=== PATIENT | male | born 1975 | race Hispanic/Latino ===

== ENCOUNTER 2020-02-16 15:16 | Inpatient (IN) | payer SELFPAY ==
--- NOTE | 2020-02-16 15:59 | RAD ---
EXAM: Single view of the chest HISTORY: Right leg swelling. Noncompliant with congestive heart failure medication COMPARISON: 11/12/2019 FINDINGS: Single view of the chest shows an enlarged cardiomediastinal silhouette. Bilateral pulmona ry vascular enlargement is seen. There is no evidence of consolidation, mass, or pleural effusion. No acute osseous abnormality. IMPRESSION: Cardiomegaly
[2020-02-16] MEDS ORDERED: Morphine 4 MG/ML VIAL ONE (16:20)
[2020-02-16] MEDS ORDERED: Vancomycin 1 GM/200 ML BAG ONE (16:21)
--- NOTE | 2020-02-16 16:39 | ULT ---
EXAM: Left lower extremity venous ultrasound HISTORY: Left lower extremity redness and edema for 3 days COMPARISON: 09/25/2012 TECHNIQUE: Multiplanar grayscale and color Doppler images were obtained in a left lower extremity nara ous ultrasound. Spectral analysis of the Doppler waveforms were performed. FINDINGS: Evaluation is limited secondary to extreme obesity. The common femoral vein, profunda femor al vein, superficial femoral vein, and popliteal vein are normal in appearance without visible thrombus. These vessels demonstrate normal compression, flow, and augmentation. The posterior tibial vein and greater saphenous vein are patent without evidence of thrombus. IMPRESSION: No evidence of DVT.
[2020-02-16 17:18] LABS: CKMB 0.8 ng/mL (0-6.6)
[2020-02-16 17:33] LABS: Albumin 2.8 g/dL (3.5-5.0)
[2020-02-16 17:34] LABS: Chloride 98 mmol/L (98-107); Potassium 4.3 mmol/L (3.5-5.1); Sodium 135 mmol/L (136-145)
[2020-02-16 17:35] LABS: Calcium 7.8 mg/dL (7.8-10.44); Glucose 108 mg/dL (70-105)
[2020-02-16 17:36] LABS: Globulin 5.5 g/dL (2.4-3.5); Protein, Total 8.3 g/dL (6.0-8.3)
[2020-02-16 17:37] LABS: Anion Gap 11 mmol/L (10-20); Bilirubin, Total 2.5 mg/dL (0.2-1.2); Carbon Dioxide 30 mmol/L (22-29)
[2020-02-16 17:39] LABS: Alkaline Phosphatase 90 U/L (40-110); Calc. Creatinine Clearance 0 mL/min (70-130); Estimated GFR-MDRD 59
[2020-02-16 17:40] LABS: BUN (Urea Nitrogen) 17 mg/dL (8.9-20.6)
[2020-02-16 17:41] LABS: ALT (SGPT) 26 U/L (8-55); AST (SGOT) 58 U/L (5-34)
[2020-02-16] MEDS ORDERED: Cefepime 2 GM VIAL ONE (17:46)
[2020-02-16 18:04] LABS: Hemoglobin 13.6 g/dL (14.0-18.0); Mean Corpuscular HGB CONC 33.2 g/dL (32.0-36.0); Mean Corpuscular Hemoglobin 34.6 pg (27.0-31.0); RBC Distribution Width 12.2 % (11.5-14.5); Red Blood Cell (RBC) Count 3.93 mill/uL (4.70-6.10); White Blood Cell (WBC) Count 14.1 thou/uL (4.8-10.8)
[2020-02-16 18:06] LABS: Mean Platelet Volume 8.7 fL (7.4-10.4); Platelet Count 89 thou/uL (130-400)
--- NOTE | 2020-02-16 18:14 | PDOC.HHP ---
Hospitalist HPI - History of Present Illness LLE pain and swelling History of Present Illness: Mr. Abarca is a 44-year-old male with a past medical history of morbid obesity who has not seen a provider in decades who presents for left lower extremity redness pain and swelling. Patient reports that approximately 2 days prior to admission he noticed increased swelling to his left lower extremity which then progressed to redness and pain. Patient denies fever, night sweats, chills. He endorses chronic shortness of breath but no change from baseline. He denies chest pain, palpitations, abdominal pain. He denies numbness, weakness, paresthesias. In emergency room initial vital signs at 220/107, 89, 24, 98.7, 95% on room air. EKG with normal sinus rhythm no ischemic changes, initial troponin 0 0.058. Chest x-ray showed cardiomegaly but no acute process. WBC 14.1, H/H 13.6/40.9 BUN/CR 17/1.30, lactic acid 1.4. Ultrasound of lower extremities did not show any evidence of thrombosis. Patient received IV labetalol, vancomycin, cefepime and 1 L of normal saline. Patient managed hospital service for further evaluation and management. Hospitalist ROS - Review of Systems Constitutional: denies: fever, chills, sweats, weakness, malaise, other Eyes: denies: pain, vision change, conjunctivae inflammation, eyelid inflammation, redness, other ENT: denies: ear pain, ear discharge, nose pain, nose discharge, nose congestion, mouth pain, mouth swelling, throat pain, throat swelling, other Respiratory: reports: shortness of breath. denies: cough, dry, hemoptysis, SOB with excertion, pleuritic pain, sputum, wheezing, other Cardiovascular: denies: chest pain, palpitations, orthopnea, paroxysmal noc. dyspnea, edema, light headedness, other Gastrointestinal: denies: nausea, vomiting, abdominal pain, diarrhea, constipation, melena, hematochezia, other Genitourinary: denies: dysuria, frequency, incontinence, hematuria, retention, other Musculoskeletal: denies: neck pain, shoulder pain, arm pain, back pain, hand pain, leg pain, foot pain, other Skin: reports: rash Neurological: denies: weakness, numbness, incoordination, change in speech, confusion, seizures, other - Medication Medications: No home medications No known drug allergies Hospitalist History - Past Medical History Other Medical History: History of morbid obesity, weight of 223 kg. Patient reports that he has never been to a doctor. - Past Surgical History Other Surgical History: Past surgical history includes Left knee surgery as a child - Family History Other Family History: Patient reports family history of diabetes - Social History Smoking Status: Former smoker (Quit smoking 1 year ago) Tobacco Type: cigars Alcohol: reports: None Drugs: reports: marijuana Living Situation: With Family Activity level: independent ambulation - Exam General Appearance: NAD, awake alert Eye: PERRL, anicteric sclera ENT: normocephalic atraumatic, no oropharyngeal lesions, moist mucosa Neck: supple, symmetric, no JVD, no thyromegaly, no lymphadenopathy, no carotid bruit Heart: RRR, no murmur Heart - other findings: S3 gallop Respiratory: CTAB, no wheezes, no rales, no ronchi, normal percussion Gastrointestinal: soft, non-tender, non-distended, normal bowel sounds, no palpable masses, no hepatomegaly, no splenomegaly, no bruit Extremities: 2+ LE edema Extremities - other findings: Circumferential erythema to left lower extremity Skin: normal turgor Skin - other findings: Circumfrencial erythema to LLE extending from ankle to knee Neurological: cranial nerve grossly intact, normal sensation to touch, no weakness, no focal deficits, no new deficit Musculoskeletal: normal tone, normal strength, no muscle wasting Psychiatric: normal affect, normal behavior, A&O x 3 Hospitalist Results - Labs Result Diagrams: 02/16/20 17:40 02/16/20 16:56 Lab results: WBC 14.1 thou/uL (4.8-10.8) H 02/16/20 17:40 Hgb 13.6 g/dL (14.0-18.0) L 02/16/20 17:40 Hct 40.9 % (42.0-52.0) L 02/16/20 17:40 MCV 104.0 fL (78.0-98.0) H 02/16/20 17:40 Plt Count 89 thou/uL (130-400) L 02/16/20 17:40 Sodium 135 mmol/L (136-145) L 02/16/20 16:56 Potassium 4.3 mmol/L (3.5-5.1) 02/16/20 16:56 Chloride 98 mmol/L (98-107) 02/16/20 16:56 Carbon Dioxide 30 mmol/L (22-29) H 02/16/20 16:56 BUN 17 mg/dL (8.9-20.6) 02/16/20 16:56 Creatinine 1.30 mg/dL (0.7-1.3) 02/16/20 16:56 Glucose 108 mg/dL (70-105) H 02/16/20 16:56 Lactic Acid 1.4 mmol/L (0.5-2.2) 02/16/20 16:56 Calcium 7.8 mg/dL (7.8-10.44) 02/16/20 16:56 Total Bilirubin 2.5 mg/dL (0.2-1.2) H 02/16/20 16:56 AST 58 U/L (5-34) H 02/16/20 16:56 ALT 26 U/L (8-55) 02/16/20 16:56 Alkaline Phosphatase 90 U/L (40-110) 02/16/20 16:56 CK-MB (CK-2) 0.8 ng/mL (0-6.6) 02/16/20 16:18 Troponin I 0.058 ng/mL (< 0.028) H 02/16/20 16:18 Serum Total Protein 8.3 g/dL (6.0-8.3) 02/16/20 16:56 Albumin 2.8 g/dL (3.5-5.0) L 02/16/20 16:56 Hospitalist H&P A/P - Plan Plan: 44-year-old male past medical history of morbid obesity with not seen a physician in decades presents with left lower extremity cellulitis. Left lower extremity cellulitis 44-year-old male with left lower extremity circumferential cellulitis. Patient neurovascularly intact. WBC 14.1, lactic acid 1.4. Glucose 108. Ultrasound of lower extremity negative for DVT. Patient received vancomycin and cefepime in emergency room. Plan Elevate extremity Continue IV antibiotics We will check hemoglobin A1c Sepsis without septic shock Patient tachypneic to 24, elevated WBC to 14.1. Afebrile. Lactic acid 1.4. Meeting sepsis criteria due to left lower extremity cellulitis. Patient received vancomycin and cefepime in emergency room. Patient received 1 L of normal saline in emergency room. Patient hypertensives will hold fluids for now given suspected heart failure and cardiomegaly on x-ray. Plan Continue IV antibiotics Trend blood cultures Trend fever curve, WBC Hypertensive emergency Patient presented in hypertensive emergency with blood pressure of 220/107. Patient received 20 mg of labetalol in ER. Troponin elevated to 0.058. Patient denies chest pain, blurry vision, neck pain, headache. No papilledema on exam. Plan Continue labetalol as needed We will gradually adjust blood pressure Elevated troponin Troponin mildly elevated to 0.058. Patient denies chest pain. EKG with normal sinus rhythm no ischemic changes. Likely secondary to kidney function versus hypertensive emergency. Will trend troponin and continue to monitor. Plan Trend troponin Telemetry monitoring Acute kidney injury BUN/CR 19/04.30. Suspect IKE versus undiagnosed CKD. Patient received 1 L of normal saline in emergency room. Plan Trend kidney function Avoid nephrotoxic agents Renal dosing as appropriate Cardiomegaly Patient with cardiomegaly on chest x-ray. S3 gallop heard on exam. Patient likely has heart failure. Will obtain echocardiogram. Plan Echocardiogram Lipid panel Obesity hypoventilation syndrome Patient tachypneic to 24 on presentation. Maintaining O2 sat on room air. Patient reports chronic shortness of breath likely secondary to morbid obesity. Patient will likely need outpatient sleep study for suspected sleep apnea as well as PFTs. Plan -Supplemental O2 as needed -Outpatient follow up for ?PAIGE Morbid obesity Patient with morbid obesity weight of 220 kg. Patient does not have a primary care provider and has not seen a provider in decades. Suspect patient has multiple comorbidities and will need outpatient follow-up. I have recommended [facility] clinic to the patient as he has no insurance. Plan -Establish outpatient care with PCP DVT prophylaxisHeparin SQ Full code Case discussed with attending physician, Dr. Pride.
[2020-02-16 18:15] LABS: Band 10 % (5-11); Lymphocytes 30 % (21-51); MDiff Complete? YES; Macrocytosis SLIGHT = 6-15 cells (100X) (0-5/hpf); Monocytes 4 % (0-10); Neutrophil 55 % (42-75); Platelet Morphology Comment Appears Decreased; Reactive Lymphocytes 1 % (0-10)
[2020-02-16] MEDS ORDERED: Ondansetron ODT 4 MG TAB PO PRN (18:40)
[2020-02-16] MEDS ORDERED: Pharmacy to Dose VANCOMYCIN/RENALLY ADJ ANTIBIOTICS IVPB PRN (18:51)
[2020-02-16] MEDS ORDERED: Labetalol HCl 100 MG/20 ML VIAL SLOW IVP PRN (19:07)
[2020-02-16 20:18] LABS: Troponin I 0.046 ng/mL (< 0.028)
[2020-02-16] MEDS ORDERED: Ondansetron PF 4 MG/2 ML Vial IVP PRN (21:15)
[2020-02-16] MEDS ORDERED: Acetaminophen 325 MG TAB PO PRN (21:15)
[2020-02-16] MEDS ORDERED: HYDROcodone/Acetaminophen 5/325 mg Tablet PO PRN ×2 (21:15)
[2020-02-16] MEDS ORDERED: Ondansetron ODT 4 MG TAB SL PRN (21:15)
[2020-02-16] MEDS: Heparin 5,000 UNITS/ML VIAL SC SCH (21:48)
[2020-02-16 21:50] VITALS: BMI 69.5
[2020-02-16] MEDS ORDERED: Vancomycin 1.5 GRAM/300 ML BAG 1.5 GM in Premix Bag 1 BAG IVPB SCH (23:00)
[2020-02-16] MEDS: Sodium Chloride 0.9% 1,000 ML IV SCH (23:03)
[2020-02-16 23:36] LABS: Troponin I 0.029 ng/mL (< 0.028)
[2020-02-17] MEDS: Acetaminophen 325 MG TAB PO PRN ×2 (02:54→17:47)
[2020-02-17] MEDS: Sodium Chloride 0.9% 1,000 ML IV SCH (04:20)
[2020-02-17 05:33] LABS: SARS-CoV-2 MS2 Positive; SARS-CoV-2 N Gene Negative; SARS-CoV-2 S Gene Negative; SARS-CoV-2 by NAA Not Detected (NotDetected); SARS-CoV-2 orf1ab Negative
[2020-02-17] MEDS ORDERED: Cefepime 2 GM in Sodium Chloride 0.9% 100 ML IVPB SCH (06:00)
[2020-02-17 06:43] LABS: Hemoglobin 13.1 g/dL (14.0-18.0); Mean Corpuscular HGB CONC 32.9 g/dL (32.0-36.0); Mean Corpuscular Hemoglobin 35.1 pg (27.0-31.0); Mean Platelet Volume 7.7 fL (7.4-10.4); Platelet Count 93 thou/uL (130-400); RBC Distribution Width 12.1 % (11.5-14.5); Red Blood Cell (RBC) Count 3.73 mill/uL (4.70-6.10); White Blood Cell (WBC) Count 10.6 thou/uL (4.8-10.8)
[2020-02-17 06:44] LABS: Hemoglobin A1c 4.8 % (4.0-6.0)
[2020-02-17 07:05] LABS: Anion Gap 12 mmol/L (10-20); BUN (Urea Nitrogen) 17 mg/dL (8.9-20.6); Calc. Creatinine Clearance 245 mL/min (70-130); Calcium 7.7 mg/dL (7.8-10.44); Carbon Dioxide 25 mmol/L (22-29); Cardiac Risk 7.1 (Less than 4.5); Chloride 101 mmol/L (98-107); Cholesterol 92 mg/dl (< 200 Desired); Estimated GFR-MDRD 67; Glucose 110 mg/dL (70-105); HDL Cholesterol 13 mg/dL (>60 Neg Risk); LDL Cholesterol, Calculated 61 mg/dL; Potassium 3.9 mmol/L (3.5-5.1); Sodium 134 mmol/L (136-145); Triglycerides 88 mg/dL (Less than 150)
[2020-02-17] MEDS: Amlodipine 5 MG TAB PO SCH (07:59)
[2020-02-17] MEDS: Heparin 5,000 UNITS/ML VIAL SC SCH ×3 (08:04→21:42)
[2020-02-17 09:08] LABS: Band 13 % (5-11); Eosinophils 1 % (0-10); Lymphocytes 14 % (21-51); MDiff Complete? YES; Monocytes 12 % (0-10); Neutrophil 59 % (42-75); Platelet Morphology Comment Appears Decreased; Polychromasia SLIGHT = 2-3 cells (100X) (0-2/hpf); Reactive Lymphocytes 1 % (0-10)
[2020-02-17] MEDS ORDERED: cefTRIAXone\\ROCEPHIN 2 GM in Sodium Chloride 0.9% 100 ML IVPB SCH (10:00)
[2020-02-17] MEDS: CEFAZOLIN 2 GM in Premix Bag 1 BAG IVPB SCH ×2 (11:22→21:39)
[2020-02-17] MEDS ORDERED: FLU VACC QS2020-21(6MOS UP)/PF 60 MCG/0.5 ML SYRINGE IM ONE (21:00)
[2020-02-17 23:47] LABS: Vancomycin, Trough 26.4 ug/mL
[2020-02-18] MEDS: CEFAZOLIN 2 GM in Premix Bag 1 BAG IVPB SCH ×3 (06:12→22:57)
[2020-02-18 06:34] LABS: Anion Gap 11 mmol/L (10-20); BUN (Urea Nitrogen) 16 mg/dL (8.9-20.6); Calc. Creatinine Clearance 259 mL/min (70-130); Calcium 7.5 mg/dL (7.8-10.44); Carbon Dioxide 25 mmol/L (22-29); Chloride 102 mmol/L (98-107); Estimated GFR-MDRD 71; Glucose 105 mg/dL (70-105); Potassium 3.8 mmol/L (3.5-5.1); Sodium 134 mmol/L (136-145)
[2020-02-18 08:02] LABS: Band 4 % (5-11); Eosinophils 2 % (0-10); Hemoglobin 12.3 g/dL (14.0-18.0); Lymphocytes 11 % (21-51); MDiff Complete? YES; Macrocytosis SLIGHT = 6-15 cells (100X) (0-5/hpf); Mean Corpuscular Hemoglobin 32.8 pg (27.0-31.0); Monocytes 10 % (0-10); Neutrophil 70 % (42-75); Platelet Count 120 thou/uL (130-400); Platelet Morphology Comment Appears Decreased; Polychromasia SLIGHT = 2-3 cells (100X) (0-2/hpf); RBC Distribution Width 12.2 % (11.5-14.5); Reactive Lymphocytes 2 % (0-10); Red Blood Cell (RBC) Count 3.75 mill/uL (4.70-6.10); White Blood Cell (WBC) Count 13.6 thou/uL (4.8-10.8)
[2020-02-18] MEDS: Amlodipine 5 MG TAB PO SCH (10:19)
[2020-02-18] MEDS: Heparin 5,000 UNITS/ML VIAL SC SCH ×3 (10:20→20:11)
--- NOTE | 2020-02-18 13:27 | PDOC.HOSPP ---
- Subjective Encounter Date: 02/17/20 Encounter Time: 11:15 Subjective: pt up in bed complains of pain to his left leg - Objective Vital Signs & Weight: Vital Signs (12 hours) Temp Pulse Resp BP BP BP Pulse Ox 02/18/20 10:19 88 107/67 02/18/20 07:29 98.8 F 88 20 10767 92 L 02/18/20 03:42 114/69 Weight Weight 485 lb 0.271 oz I&O: 02/17/20 02/18/20 02/19/20 06:59 06:59 06:59 Intake Total 1700 1310 Balance 1700 1310 Result Diagrams: 02/18/20 05:40 02/18/20 05:40 Hospitalist ROS - Review of Systems Respiratory: denies: cough, dry, shortness of breath, hemoptysis, SOB with excertion, pleuritic pain, sputum, wheezing, other Cardiovascular: denies: chest pain, palpitations, orthopnea, paroxysmal noc. dyspnea, edema, light headedness, other Gastrointestinal: denies: nausea, vomiting, abdominal pain, diarrhea, constipation, melena, hematochezia, other Musculoskeletal: reports: leg pain, other (erythema) - Medication Medications: Active Medications Generic Name Dose Route Start Last Admin Trade Name Freq PRN Reason Stop Dose Admin Acetaminophen 650 mg 02/16/20 18:40 02/17/20 17:47 Acetaminophen 325 Mg Tab PO 650 mg Q4H PRN Administration Headache/Fever/Mild Pain (1-3) Amlodipine Besylate 2.5 mg 02/17/20 09:00 02/18/20 10:19 Amlodipine 5 Mg Tab PO 2.5 mg DAILY RAMY Administration Heparin Sodium (Porcine) 5,000 units 02/16/20 21:00 02/18/20 10:20 Heparin 5,000 Units/Ml Vial SC 5,000 units TID RAMY Administration Cefazolin Sodium/Dextrose 2 gm 50 mls @ 100 mls/hr 02/18/20 06:00 02/18/20 06:12 / Device IVPB 50 mls Q8HR RAMY Administration Vancomycin HCl 2 gm/ Sodium 500 mls @ 250 mls/hr 02/18/20 08:00 02/18/20 08:26 Chloride IVPB 500 mls 0800,2000 RAMY Administration - Exam Neck: negative: supple, symmetric, no JVD, no thyromegaly, no lymphadenopathy, no carotid bruit, JVD Heart: negative: RRR, no murmur, no gallops, no rubs, normal peripheral pulses, irregular, diminshed peripheral pulses, murmur present, II/IV, III/IV Respiratory: negative: CTAB, no wheezes, no rales, no ronchi, normal chest expan abigail, no tachypnea, normal percussion, rales, rhonchi, tachypneic, wheezes Extremities: 1+ LE edema Extremities - other findings: erythema to left leg Hosp A/P (1) Cellulitis Code(s): L03.90 - CELLULITIS, UNSPECIFIED Status: Acute (2) Sepsis Code(s): A41.9 - SEPSIS, UNSPECIFIED ORGANISM Status: Acute (3) Obesity Code(s): E66.9 - OBESITY, UNSPECIFIED Status: Acute (4) Elevated troponin Code(s): R77.8 - OTHER SPECIFIED ABNORMALITIES OF PLASMA PROTEINS Status: A cute (5) Thrombocytopenia Code(s): D69.6 - THROMBOCYTOPENIA, UNSPECIFIED Status: Acute - Plan will start pt on ancef/vanco. pt encouraged to elevated his left leg. will monitor. pt stopped drinking about 6months. will continue to monitor his platelets possible sepsis related. echo ordered for elevated trops but no chest pain
[2020-02-18] MEDS ORDERED: Furosemide 20 MG/2 ML VIAL SLOW IVP SCH (13:30)
--- NOTE | 2020-02-18 13:36 | PDOC.HOSPP ---
- Subjective Encounter Date: 02/18/20 Encounter Time: 10:30 Subjective: pt up in bed states his left leg feels tight. - Objective Vital Signs & Weight: Vital Signs (12 hours) Temp Pulse Resp BP BP BP Pulse Ox 02/18/20 10:19 88 107/67 02/18/20 07:29 98.8 F 88 20 107/67 92 L 02/18/20 03:42 114/69 Weight Weight 485 lb 0.271 oz I&O: 02/17/20 02/18/20 02/19/20 06:59 06:59 06:59 Intake Total 1700 1310 Balance 1700 1310 Result Diagrams: 02/18/20 05:40 02/18/20 05:40 Hospitalist ROS - Review of Systems Respiratory: denies: cough, dry, shortness of breath, hemoptysis, SOB with excertion, pleuritic pain, sputum, wheezing, other Cardiovascular: denies: chest pain, palpitations, orthopnea, paroxysmal noc. dyspnea, edema, light headedness, other Gastrointestinal: denies: nausea, vomiting, abdominal pain, diarrhea, constipation, melena, hematochezia, other Musculoskeletal: reports: leg pain - Medication Medications: Active Medications Generic Name Dose Route Start Last Admin Trade Name Freq PRN Reason Stop Dose Admin Acetaminophen 650 mg 02/16/20 18:40 02/17/20 17:47 Acetaminophen 325 Mg Tab PO 650 mg Q4H PRN Administration Headache/Fever/Mild Pain (1-3) Amlodipine Besylate 2.5 mg 02/17/20 09:00 02/18/20 10:19 Amlodipine 5 Mg Tab PO 2.5 mg DAILY RAMY Administration Heparin Sodium (Porcine) 5,000 units 02/16/20 21:00 02/18/20 10:20 Heparin 5,000 Units/Ml Vial SC 5,000 units TID RAMY Administration Cefazolin Sodium/Dextrose 2 gm 50 mls @ 100 mls/hr 02/18/20 06:00 02/18/20 06:12 / Device IVPB 50 mls Q8HR RAMY Administration Vancomycin HCl 2 gm/ Sodium 500 mls @ 250 mls/hr 02/18/20 08:00 02/18/20 08:26 Chloride IVPB 500 mls 0800,2000 RAMY Administration - Exam Heart: negative: RRR, no murmur, no gallops, no rubs, normal peripheral pulses, irregular, diminshed peripheral pulses, murmur present, II/IV, III/IV Respiratory: negative: CTAB, no wheezes, no rales, no ronchi, normal chest expansion, no tachypnea, normal percussion, rales, rhonchi, tachypneic, wheezes Gastrointestinal: negative: soft, non-tender, non-distended, normal bowel sounds, no palpable masses, no hepatomegaly, no splenomegaly, no bruit, no guarding, no rigidity, tender to palpation, distended, diminished bowl sounds, voluntary guarding Extremities: 2+ LE edema Extremities - other findings: erythema appears to improve will monitor Hosp A/P (1) Cellulitis Code(s): L03.90 - CELLULITIS, UNSPECIFIED Status: Acute (2) Sepsis Code(s): A41.9 - SEPSIS, UNSPECIFIED ORGANISM Status: Acute (3) Obesity Code(s): E66.9 - OBESITY, UNSPECIFIED Status: Acute (4) Elevated troponin Code(s): R77.8 - OTHER SPECIFIED ABNORMALITIES OF PLASMA PROTEINS Status: Acute (5) Thrombocytopenia Code(s): D69.6 - THROMBOCYTOPENIA, UNSPECIFIED Status: Acute - Plan will start pt on ancef/vanco. pt encouraged to elevated his left leg. will monitor. pt stopped drinking about 6months. will continue to monitor his platelets possible sepsis related. echo ordered for elevated trops but no chest pain 02/17 pt's echo ef of 55-60, will monitor. will continue abx possible stop vanco senia. his platelets are improving. type 2 ischemia. pt educated on diet and exercise.
[2020-02-18] MEDS: Acetaminophen 325 MG TAB PO PRN (20:10)
[2020-02-19] MEDS: Acetaminophen 325 MG TAB PO PRN ×2 (04:15→21:49)
[2020-02-19] MEDS: CEFAZOLIN 2 GM in Premix Bag 1 BAG IVPB SCH ×3 (06:28→21:49)
[2020-02-19 07:13] LABS: #Basophils 0.1 thou/uL (0.0-0.2); #Eosinphils 0.1 thou/uL (0.0-0.7); #Monocytes 1.3 thou/uL (0.11-0.59); #Neutrophils 8.5 thou/uL (1.40-6.50); %Basophils 0.4 % (0.0-1.0); %Eosinophils 0.9 % (0.0-10.0); %Lymphocytes 16.7 % (21.0-51.0); %Monocytes 10.7 % (0.0-10.0); %Neutrophils 71.3 % (42.0-75.0); Hemoglobin 12.9 g/dL (14.0-18.0); Mean Corpuscular HGB CONC 33.9 g/dL (32.0-36.0); Mean Corpuscular Hemoglobin 35.8 pg (27.0-31.0); Mean Platelet Volume 7.5 fL (7.4-10.4); Platelet Count 129 thou/uL (130-400); RBC Distribution Width 12.1 % (11.5-14.5); Red Blood Cell (RBC) Count 3.59 mill/uL (4.70-6.10); White Blood Cell (WBC) Count 11.9 thou/uL (4.8-10.8)
[2020-02-19 07:27] LABS: Anion Gap 13 mmol/L (10-20); BUN (Urea Nitrogen) 14 mg/dL (8.9-20.6); Calc. Creatinine Clearance 282 mL/min (70-130); Calcium 7.8 mg/dL (7.8-10.44); Carbon Dioxide 26 mmol/L (22-29); Chloride 101 mmol/L (98-107); Estimated GFR-MDRD 79; Glucose 109 mg/dL (70-105); Potassium 3.6 mmol/L (3.5-5.1); Sodium 136 mmol/L (136-145)
[2020-02-19] MEDS: Amlodipine 5 MG TAB PO SCH (08:18)
[2020-02-19] MEDS: Aspirin 81 mg Enteric Coated Tablet PO SCH (08:18)
[2020-02-19] MEDS: Heparin 5,000 UNITS/ML VIAL SC SCH ×3 (08:19→21:49)
--- NOTE | 2020-02-19 15:48 | PDOC.HOSPP ---
- Subjective Encounter Date: 02/19/20 Encounter Time: 11:45 Subjective: Patient up in bed still has pain to his left lower extremity. He had a fever last night - Objective Vital Signs & Weight: Vital Signs (12 hours) Temp Pulse Resp BP BP BP Pulse Ox 02/19/20 11:28 100.5 F H 81 20 107/67 92 L 02/19/20 08:18 77 127/70 02/19/20 08:00 97.3 F L 02/19/20 07:32 97.3 F L 77 20 127/70 92 L 02/19/20 04:39 99.9 F H 80 18 133/78 90 L Weight Weight 485 lb 0.271 oz I&O: 02/18/20 02/19/20 02/20/20 06:59 06:59 06:59 Intake Total 1310 2580 240 Balance 1310 2580 240 Result Diagrams: 02/19/20 06:45 02/19/20 06:45 Hospitalist ROS - Review of Systems Cardiovascular: denies: chest pain, palpitations, orthopnea, paroxysmal noc. dyspnea, edema, light headedness, other Gastrointestinal: denies: nausea, vomiting, abdominal pain, diarrhea, constipation, melena, hematochezia, other Musculoskeletal: reports: leg pain - Medication Medications: Active Medications Generic Name Dose Route Start Last Admin Trade Name Samson PRN Reason Stop Dose Admin Acetaminophen 650 mg 02/16/20 18:40 02/19/20 04:15 Acetaminophen 325 Mg Tab PO 650 mg Q4H PRN Administration Headache/Fever/Mild Pain (1-3) Amlodipine Besylate 2.5 mg 02/17/20 09:00 02/19/20 08:18 Amlodipine 5 Mg Tab PO 2.5 mg DAILY RAMY Administration Aspirin 81 mg 02/19/20 09:00 02/19/20 08:18 Aspirin 81 Mg Enteric Coated Tablet PO 81 mg DAILY RAMY Administration Heparin Sodium (Porcine) 5,000 units 02/16/20 21:00 02/19/20 14:09 Heparin 5,000 Units/Ml Vial SC 5,000 units TID RAMY Administration Cefazolin Sodium/Dextrose 2 gm 50 mls @ 100 mls/hr 02/18/20 06:00 02/19/20 14:06 / Device IVPB 50 mls Q8HR RAMY Administration - Exam Neck: negative: supple, symmetric, no JVD, no thyromegaly, no lymphadenopathy, no carotid bruit, JVD Heart: negative: RRR, no murmur, no gallops, no rubs, normal peripheral pulses, irregular, diminshed peripheral pulses, murmur present, II/IV, III/IV Gastrointestinal: negative: soft, non-tender, non-distended, normal bowel sounds, no palpable masses, no hepatomegaly, no splenomegaly, no bruit, no guarding, no rigidity, tender to palpation, distended, diminished bowl sounds, voluntary guarding Extremities: 2+ LE edema Extremities - other findings: Left leg erythema slightly improved since yesterday Hosp A/P (1) Cellulitis Code(s): L03.90 - CELLULITIS, UNSPECIFIED Status: Acute (2) Sepsis Code(s): A41.9 - SEPSIS, UNSPECIFIED ORGANISM Status: Acute (3) Obesity Code(s): E66.9 - OBESITY, UNSPECIFIED Status: Acute (4) Elevated troponin Code(s): R77.8 - OTHER SPECIFIED ABNORMALITIES OF PLASMA PROTEINS Status: Acute (5) Thrombocytopenia Code(s): D69.6 - THROMBOCYTOPENIA, UNSPECIFIED Status: Acute - Plan will start pt on ancef/vanco. pt encouraged to elevated his left leg. will monitor. pt stopped drinking about 6months. will continue to monitor his platelets possible sepsis related. echo ordered for elevated trops but no chest pain 02/17 pt's echo ef of 55-60, will monitor. will continue abx possible stop vanco senia. his platelets are improving. type 2 ischemia. pt educated on diet and exercise. 02/18 we will stop vancomycin. We will continue Ancef for now. If his erythema does not improve by tomorrow may consider consulting infectious disease. Patient's white count did improve. However he did have a fever last night. Patient does get up and ambulate. He is also encouraged to elevate his foot a addison the heart. However given his morbid obesity that is a little bit difficult. Will order 1 dose of Lasix
[2020-02-19] MEDS ORDERED: Furosemide 20 MG/2 ML VIAL SLOW IVP SCH (16:00)
[2020-02-20] MEDS: CEFAZOLIN 2 GM in Premix Bag 1 BAG IVPB SCH ×3 (05:34→20:59)
[2020-02-20 06:12] LABS: Anion Gap 12 mmol/L (10-20); BUN (Urea Nitrogen) 12 mg/dL (8.9-20.6); Calc. Creatinine Clearance 312 mL/min (70-130); Calcium 7.4 mg/dL (7.8-10.44); Carbon Dioxide 26 mmol/L (22-29); Chloride 101 mmol/L (98-107); Estimated GFR-MDRD 89; Glucose 101 mg/dL (70-105); Potassium 3.9 mmol/L (3.5-5.1); Sodium 135 mmol/L (136-145)
[2020-02-20] MEDS: Aspirin 81 mg Enteric Coated Tablet PO SCH (08:15)
[2020-02-20] MEDS: Acetaminophen 325 MG TAB PO PRN ×2 (08:15→18:17)
[2020-02-20] MEDS: Amlodipine 5 MG TAB PO SCH (08:17)
[2020-02-20] MEDS: Heparin 5,000 UNITS/ML VIAL SC SCH ×3 (08:18→20:59)
[2020-02-20] MEDS ORDERED: Furosemide 20 MG/2 ML VIAL SLOW IVP SCH (10:15)
[2020-02-20 13:56] LABS: #Basophils 0.1 thou/uL (0.0-0.2); #Eosinphils 0.2 thou/uL (0.0-0.7); #Lymphocytes 2.1 thou/uL (1.20-3.40); #Monocytes 1.1 thou/uL (0.11-0.59); %Basophils 0.4 % (0.0-1.0); %Eosinophils 1.5 % (0.0-10.0); %Monocytes 8.7 % (0.0-10.0); %Neutrophils 72.4 % (42.0-75.0); Hemoglobin 13.2 g/dL (14.0-18.0); Mean Corpuscular Hemoglobin 35.2 pg (27.0-31.0); Mean Platelet Volume 7.3 fL (7.4-10.4); Platelet Count 170 thou/uL (130-400); RBC Distribution Width 12.3 % (11.5-14.5); Red Blood Cell (RBC) Count 3.74 mill/uL (4.70-6.10); White Blood Cell (WBC) Count 12.4 thou/uL (4.8-10.8)
--- NOTE | 2020-02-20 15:18 | PDOC.HOSPP ---
- Subjective Encounter Date: 02/20/20 Encounter Time: 10:30 Subjective: Patient up in bed feels better today than yesterday. - Objective Vital Signs & Weight: Vital Signs (12 hours) Temp Pulse Resp BP BP BP Pulse Ox 02/20/20 13:47 99.1 F 90 20 131/74 94 L 02/20/20 08:17 81 141/73 H 02/20/20 08:00 95 02/20/20 07:40 100.0 F H 81 20 141/73 H 95 02/20/20 04:17 99.3 F Weight Weight 485 lb 0.271 oz I&O: 02/19/20 02/20/20 02/21/20 06:59 06:59 06:59 Intake Total 2580 2750 Balance 2580 2750 Result Diagrams: 02/20/20 13:47 02/20/20 05:36 Hospitalist ROS - Review of Systems Cardiovascular: denies: chest pain, palpitations, orthopnea, paroxysmal noc. dyspnea, edema, light headedness, other Gastrointestinal: denies: nausea, vomiting, abdominal pain, diarrhea, constipation, melena, hematochezia, other Genitourinary: denies: dysuria, frequency, incontinence, hematuria, retention, other - Medication Medications: Active Medications Generic Name Dose Route Start Last Admin Trade Name Betoq PRN Reason Stop Dose Admin Acetaminophen 650 mg 02/16/20 18:40 02/20/20 08:15 Acetaminophen 325 Mg Tab PO 650 mg Q4H PRN Administration Headache/Fever/Mild Pain (1-3) Amlodipine Besylate 2.5 mg 02/17/20 09:00 02/20/20 08:17 Amlodipine 5 Mg Tab PO 2.5 mg DAILY RAMY Administration Aspirin 81 mg 02/19/20 09:00 02/20/20 08:15 Aspirin 81 Mg Enteric Coated Tablet PO 81 mg DAILY RAMY Administration Heparin Sodium (Porcine) 5,000 units 02/16/20 21:00 02/20/20 14:34 Heparin 5,000 Units/Ml Vial SC 5,000 units TID RAMY Administration Cefazolin Sodium/Dextrose 2 gm 50 mls @ 100 mls/hr 02/18/20 06:00 02/20/20 14:23 / Device IVPB 50 mls Q8HR RAMY Administration - Exam Neck: negative: supple, symmetric, no JVD, no thyromegaly, no lymphadenopathy, no carotid bruit, JVD Heart: negative: RRR, no murmur, no gallops, no rubs, normal peripheral pulses, irregular, diminshed peripheral pulses, murmur present, II/IV, III/IV Respiratory: negative: CTAB, no wheezes, no rales, no ronchi, normal chest expansion, no tachypnea, normal percussion, rales, rhonchi, tachypneic, wheezes Gastrointestinal: negative: soft, non-tender, non-distended, normal bowel sounds, no palpable masses, no hepatomegaly, no splenomegaly, no bruit, no guarding, no rigidity, tender to palpation, distended, diminished bowl sounds, voluntary guarding Extremities: 2+ LE edema Extremities - other findings: Mild erythema to the left lower extremity. Hosp A/P (1) Cellulitis Code(s): L03.90 - CELLULITIS, UNSPECIFIED Status: Acute (2) Sepsis Code(s): A41.9 - SEPSIS, UNSPECIFIED ORGANISM Status: Acute (3) Obesity Code(s): E66.9 - OBESITY, UNSPECIFIED Status: Acute (4) Elevated troponin Code(s): R77.8 - OTHER SPECIFIED ABNORMALITIES OF PLASMA PROTEINS Status: Acute (5) Thrombocytopenia Code(s): D69.6 - THROMBOCYTOPENIA, UNSPECIFIED Status: Acute - Plan will start pt on ancef/vanco. pt encouraged to elevated his left leg. will monitor. pt stopped drinking about 6months. will continue to monitor his platelets possible sepsis related. echo ordered for elevated trops but no chest pain 02/17 pt's echo ef of 55-60, will monitor. will continue abx possible stop vanco senia. his platelets are improving. type 2 ischemia. pt educated on diet and exercise. 02/18 we will stop vancomycin. We will continue Ancef for now. If his erythema does not improve by tomorrow may consider consulting infectious disease. Giovanni taverasavi's white count did improve. However he did have a fever last night. Patient does get up and ambulate. He is also encouraged to elevate his foot above the heart. However given his morbid obesity that is a little bit difficult. Will order 1 dose of Lasix 02/19 we will continue Ancef for now. His platelets have improved. Patient has had low-grade fever. We will continue IV Lasix for now. Patient encouraged to keep his left leg elevated above the heart.
[2020-02-21] MEDS: CEFAZOLIN 2 GM in Premix Bag 1 BAG IVPB SCH ×3 (05:53→21:47)
[2020-02-21 08:05] LABS: ALT (SGPT) Less than 7 U/L (8-55); AST (SGOT) 42 U/L (5-34); Albumin 2.3 g/dL (3.5-5.0); Alkaline Phosphatase 114 U/L (40-110); Anion Gap 11 mmol/L (10-20); BUN (Urea Nitrogen) 11 mg/dL (8.9-20.6); Bilirubin, Total 1.8 mg/dL (0.2-1.2); Calc. Creatinine Clearance 293 mL/min (70-130); Calcium 7.6 mg/dL (7.8-10.44); Carbon Dioxide 30 mmol/L (22-29); Chloride 99 mmol/L (98-107); Estimated GFR-MDRD 82; Globulin 5.2 g/dL (2.4-3.5); Glucose 110 mg/dL (70-105); Potassium 3.7 mmol/L (3.5-5.1); Protein, Total 7.5 g/dL (6.0-8.3); Sodium 136 mmol/L (136-145)
[2020-02-21] MEDS: Aspirin 81 mg Enteric Coated Tablet PO SCH (08:54)
[2020-02-21] MEDS: Acetaminophen 325 MG TAB PO PRN ×2 (08:55→17:33)
[2020-02-21] MEDS: Amlodipine 5 MG TAB PO SCH (08:55)
[2020-02-21] MEDS: Heparin 5,000 UNITS/ML VIAL SC SCH ×3 (08:57→21:47)
--- NOTE | 2020-02-21 17:29 | PDOC.HOSPP ---
- Subjective Encounter Date: 02/21/20 Encounter Time: 10:30 Subjective: pt up in bed still has pain to his left leg but his edema has improved. - Objective Vital Signs & Weight: Vital Signs (12 hours) Temp Pulse Resp BP BP Pulse Ox 02/21/20 16:00 99.5 F 76 22 H 149/81 H 93 L 02/21/20 11:49 98.7 F 79 20 126/73 93 L 02/21/20 08:55 81 144/80 H 02/21/20 08:00 94 L 02/21/20 07:26 99.1 F 81 20 144/80 H 94 L Weight Weight 485 lb 0.271 oz I&O: 02/20/20 02/21/20 02/22/20 06:59 06:59 06:59 Intake Total 2750 2242 Balance 2750 2242 Result Diagrams: 02/20/20 13:47 02/21/20 07:33 Hospitalist ROS - Review of Systems Respiratory: denies: cough, dry, shortness of breath, hemoptysis, SOB with excertion, pleuritic pain, sputum, wheezing, other Cardiovascular: denies: chest pain, palpitations, orthopnea, paroxysmal noc. dyspnea, edema, light headedness, other Gastrointestinal: denies: nausea, vomiting, abdominal pain, diarrhea, constipation, melena, hematochezia, other Musculoskeletal: reports: leg pain - Medication Medications: Active Medications Generic Name Dose Route Start Last Admin Trade Name Freq PRN Reason Stop Dose Admin Acetaminophen 650 mg 02/16/20 18:40 02/21/20 08:55 Acetaminophen 325 Mg Tab PO 650 mg Q4H PRN Administration Headache/Fever/Mild Pain (1-3) Amlodipine Besylate 2.5 mg 02/17/20 09:00 02/21/20 08:55 Amlodipine 5 Mg Tab PO 2.5 mg DAILY RAMY Administration Aspirin 81 mg 02/19/20 09:00 02/21/20 08:54 Aspirin 81 Mg Enteric Coated Tablet PO 81 mg DAILY RAMY Administration Heparin Sodium (Porcine) 5,000 units 02/16/20 21:00 02/21/20 14:28 Heparin 5,000 Units/Ml Vial SC 5,000 units TID RAMY Administration Cefazolin Sodium/Dextrose 2 gm 50 mls @ 100 mls/hr 02/18/20 06:00 02/21/20 14 :27 / Device IVPB 50 mls Q8HR RAMY Administration - Exam Respiratory: negative: CTAB, no wheezes, no rales, no ronchi, normal chest expansion, no tachypnea, normal percussion, rales, rhonchi, tachypneic, wheezes Gastrointestinal: negative: soft, non-tender, non-distended, normal bowel sounds, no palpable masses, no hepatomegaly, no splenomegaly, no bruit, no guarding, no rigidity, tender to palpation, distended, diminished bowl sounds, voluntary guarding Extremities: 1+ LE edema Extremities - other findings: mild erythema noted to left leg, improved Hosp A/P (1) Cellulitis Code(s): L03.90 - CELLULITIS, UNSPECIFIED Status: Acute (2) Sepsis Code(s): A41.9 - SEPSIS, UNSPECIFIED ORGANISM Status: Acute (3) Obesity Code(s): E66.9 - OBESITY, UNSPECIFIED Status: Acute (4) Elevated troponin Code(s): R77.8 - OTHER SPECIFIED ABNORMALITIES OF PLASMA PROTEINS Status: Acute (5) Thrombocytopenia Code(s): D69.6 - THROMBOCYTOPENIA, UNSPECIFIED Status: Acute - Plan will start pt on ancef/vanco. pt encouraged to elevated his left leg. will monitor. pt stopped drinking about 6months. will continue to monitor his platelets possible sepsis related. echo ordered for elevated trops but no chest pain 02/17 pt's echo ef of 55-60, will monitor. will continue abx possible stop vanco senia. his platelets are improving. type 2 ischemia. pt educated on diet and exercise. 02/18 we will stop vancomycin. We will continue Ancef for now. If his erythema does not improve by tomorrow may consider consulting infectious disease. Patient's white count did improve. However he did have a fever last night. Patient does get up and ambulate. He is also encouraged to elevate his foot above the heart. However given his morbid obesity that is a little bit difficult. Will order 1 dose of Lasix 02/19 we will continue Ancef for now. His platelets have improved. Patient has had low-grade fever. We will continue IV Lasix for now. Patient encouraged to keep his left leg elevated above the heart. 02/20 will continue ancef possible discharge in the next 24-48hr. No fever overnight. His platelets are improving.
[2020-02-22] MEDS: CEFAZOLIN 2 GM in Premix Bag 1 BAG IVPB SCH ×3 (05:47→21:40)
[2020-02-22] MEDS: Amlodipine 5 MG TAB PO SCH (09:50)
[2020-02-22] MEDS: Aspirin 81 mg Enteric Coated Tablet PO SCH (09:51)
[2020-02-22] MEDS: Heparin 5,000 UNITS/ML VIAL SC SCH ×3 (09:52→21:38)
--- NOTE | 2020-02-22 15:28 | EKG ---
Test Reason : CHF Blood Pressure : / mmHG Vent. Rate : 087 BPM Atrial Rate : 087 BPM P-R Int : 160 ms QRS Dur : 102 ms QT Int : 366 ms P-R-T Axes : 055 070 044 degrees QTc Int : 440 ms Normal sinus rhythm Low voltage QRS Borderline ECG Confirmed by NIECY NG, PREETHI Lema ([id number]), book editor ROBIN PERRY ([id number]) on 02/22/2020 3:28:04 PM Referred By: Confirmed By:PREETHI PEMBERTON MD
--- NOTE | 2020-02-22 16:27 | PDOC.HOSPP ---
- Subjective Encounter Date: 02/22/20 Encounter Time: 16:25 Subjective: Mr. Abarca was seen today in follow-up of cellulitis of the left leg. He notes continued soreness in the leg, but says the swelling has gone down. - Objective Vital Signs & Weight: Vital Signs (12 hours) Temp Pulse Resp BP BP Pulse Ox 02/22/20 09:50 81 153/83 H 02/22/20 07:43 98.8 F 81 16 153/83 H 90 L Weight Weight 485 lb 0.271 oz I&O: 02/21/20 02/22/20 02/23/20 06:59 06:59 06:59 Intake Total 2242 1383 Balance 2242 1383 Result Diagrams: 02/20/20 13:47 02/21/20 07:33 Hospitalist ROS - Medication Medications: Active Medications Generic Name Dose Route Start Last Admin Trade Name Freq PRN Reason Stop Dose Admin Acetaminophen 650 mg 02/16/20 18:40 02/21/20 17:33 Acetaminophen 325 Mg Tab PO 650 mg Q4H PRN Administration Headache/Fever/Mild Pain (1-3) Amlodipine Besylate 2.5 mg 02/17/20 09:00 02/22/20 09:50 Amlodipine 5 Mg Tab PO 2.5 mg DAILY RAMY Administration Aspirin 81 mg 02/19/20 09:00 02/22/20 09:51 Aspirin 81 Mg Enteric Coated Tablet PO 81 mg DAILY RAMY Administration Heparin Sodium (Porcine) 5,000 units 02/16/20 21:00 02/22/20 15:03 Heparin 5,000 Units/Ml Vial SC 5,000 units TID RAMY Administration Cefazolin Sodium/Dextrose 2 gm 50 mls @ 100 mls/hr 02/18/20 06:00 02/22/20 15:01 / Device IVPB 50 mls Q8HR RAMY Administration - Exam Eye: PERRL, anicteric sclera Heart: RRR, no murmur, no gallops, no rubs, normal peripheral pulses Respiratory: CTAB, no wheezes, no rales, no ronchi, normal chest expansion Gastrointestinal: soft, non-tender, normal bowel sounds Extremities: 2+ LE edema (+ deep red erythema on the left leg up to just distal to the knee. There is warmth, and tenderness) Hosp A/P (1) Cellulitis of left leg Code(s): L03.116 - CELLULITIS OF LEFT LOWER LIMB Status: Acute (2) Morbid obesity with BMI of 60.0-69.9, adult Code(s): E66.01 - MORBID (SEVERE) OBESITY DUE TO EXCESS CALORIES; Z68.44 - BODY MASS INDEX [BMI] 60.0-69.9, ADULT Status: Chronic - Plan * Cellulitis of the left leg- this is slowly improving, but it is extensive. Will continue IV antibiotics for a few more days. * Life Threatening Obesity- will consult Associate Professor Of Geology * Continue DVT prophylaxis
[2020-02-23] MEDS: CEFAZOLIN 2 GM in Premix Bag 1 BAG IVPB SCH ×3 (05:43→21:02)
[2020-02-23] MEDS: Amlodipine 5 MG TAB PO SCH (09:21)
[2020-02-23] MEDS: Heparin 5,000 UNITS/ML VIAL SC SCH ×3 (09:21→21:02)
[2020-02-23] MEDS: Aspirin 81 mg Enteric Coated Tablet PO SCH (09:21)
--- NOTE | 2020-02-23 16:54 | PDOC.HOSPP ---
- Subjective Encounter Date: 02/23/20 Encounter Time: 16:52 Subjective: Mr. Abarca was seen today in follow-up of cellulitis of the left leg. He notes some improvement, but the leg is still quite painful. - Objective Vital Signs & Weight: Vital Signs (12 hours) Temp Pulse Resp BP BP Pulse Ox 02/23/20 11:55 99.1 F 81 20 151/75 H 95 02/23/20 09:21 84 129/72 02/23/20 08:00 94 L 02/23/20 07:18 98.5 F 84 15 147/88 H 96 Weight Weight 485 lb 0.271 oz I&O: 02/22/20 02/23/20 02/24/20 06:59 06:59 06:59 Intake Total 1383 2020 600 Balance 1383 2020 600 Result Diagrams: 02/20/20 13:47 02/21/20 07:33 Hospitalist ROS - Medication Medications: Active Medications Generic Name Dose Route Start Last Admin Trade Name Freq PRN Reason Stop Dose Admin Acetaminophen 650 mg 02/16/20 18:40 02/21/20 17:33 Acetaminophen 325 Mg Tab PO 650 mg Q4H PRN Administration Headache/Fever/Mild Pain (1-3) Amlodipine Besylate 2.5 mg 02/17/20 09:00 02/23/20 09:21 Amlodipine 5 Mg Tab PO 2.5 mg DAILY RAMY Administration Aspirin 81 mg 02/19/20 09:00 02/23/20 09:21 Aspirin 81 Mg Enteric Coated Tablet PO 81 mg DAILY RAMY Administration Heparin Sodium (Porcine) 5,000 units 02/16/20 21:00 02/23/20 15:48 Heparin 5,000 Units/Ml Vial SC 5,000 units TID RAMY Administration Cefazolin Sodium/Dextrose 2 gm 50 mls @ 100 mls/hr 02/18/20 06:00 02/23/20 14:38 / Device IVPB 50 mls Q8HR RAMY Administration - Exam Eye: PERRL, anicteric sclera Heart: RRR, no murmur, no gallops, no rubs, normal peripheral pulses Respiratory: CTAB, no wheezes, no rales, no ronchi, normal chest expansion, no tachypnea Gastrointestinal: soft, non-tender, non-distended, normal bowel sounds, no palpable masses, no hepatomegaly Extremities: no cyanosis, 2+ LE edema (+ massive edema in both lower extremitites, and erythema in the left leg as well as warmth. good distal pulses, improved from yesterday) Hosp A/P (1) Cellulitis of left leg Code(s): L03.116 - CELLULITIS OF LEFT LOWER LIMB Status: Acute (2) Morbid obesity with BMI of 60.0-69.9, adult Code(s): E66.01 - MORBID (SEVERE) OBESITY DUE TO EXCESS CALORIES; Z68.44 - BODY MASS INDEX [BMI] 60.0-69.9, ADULT Status: Chronic - Plan * Cellulitis of the left leg- this is slowly improving, but it is extensive. * Continue IV antibiotics * Life Threatening Obesity * Continue DVT prophylaxis * Patient lost his job due to being hospitalized- will consult case management
[2020-02-23] MEDS: Acetaminophen 325 MG TAB PO PRN (21:05)
[2020-02-24] MEDS: CEFAZOLIN 2 GM in Premix Bag 1 BAG IVPB SCH ×2 (06:30→14:44)
[2020-02-24 07:26] VITALS: BP 130/73; TEMP 98.4
[2020-02-24] MEDS: Amlodipine 5 MG TAB PO SCH (08:02)
[2020-02-24] MEDS: Aspirin 81 mg Enteric Coated Tablet PO SCH (08:02)
[2020-02-24] MEDS: Heparin 5,000 UNITS/ML VIAL SC SCH ×2 (08:09→14:53)
[2020-02-24] MEDS: Acetaminophen 325 MG TAB PO PRN (08:12)
--- NOTE | 2020-02-24 15:44 | PDOC.HOSPP ---
- Subjective Encounter Date: 02/24/20 Encounter Time: 15:42 Subjective: Mr. Abarca was seen today in follow-up of cellulitis of the left lower extremity. He does not have any new complaints. He says the swelling and redness has improved. - Objective Vital Signs & Weight: Vital Signs (12 hours) Temp Pulse Resp BP BP Pulse Ox 02/24/20 08:02 81 130/73 02/24/20 08:00 95 02/24/20 07:24 98.4 F 81 16 130/73 93 L Weight Weight 485 lb 0.271 oz I&O: 02/23/20 02/24/20 02/25/20 06:59 06:59 06:59 Intake Total 2019 840 Balance 2019 840 Result Diagrams: 02/20/20 13:47 02/21/20 07:33 Hospitalist ROS - Medication Medications: Active Medications Generic Name Dose Route Start Last Admin Trade Name Freq PRN Reason Stop Dose Admin Acetaminophen 650 mg 02/16/20 18:40 02/24/20 08:12 Acetaminophen 325 Mg Tab PO 650 mg Q4H PRN Administration Headache/Fever/Mild Pain (1-3) Amlodipine Besylate 2.5 mg 02/17/20 09:00 02/24/20 08:02 Amlodipine 5 Mg Tab PO 2.5 mg DAILY RAMY Administration Aspirin 81 mg 02/19/20 09:00 02/24/20 08:02 Aspirin 81 Mg Enteric Coated Tablet PO 81 mg DAILY RAMY Administration Heparin Sodium (Porcine) 5,000 units 02/16/20 21:00 02/24/20 14:53 Heparin 5,000 Units/Ml Vial SC 5,000 units TID RAMY Administration Cefazolin Sodium/Dextrose 2 gm 50 mls @ 100 mls/hr 02/18/20 06:00 02/24/20 14:44 / Device IVPB 50 mls Q8HR RAMY Administration - Exam Eye: PERRL, anicteric sclera Heart: RRR, no murmur, no gallops, no rubs, normal peripheral pulses Respiratory: CTAB, no wheezes, no rales, no ronchi, normal chest expansion Extremities: 2+ LE edema (+ erythema in the left leg, and warmth, much improved good distal pulses bilaterally) Hosp A/P (1) Cellulitis of left leg Code(s): L03.116 - CELLULITIS OF LEFT LOWER LIMB Status: Acute (2) Morbid obesity with BMI of 60.0-69.9, adult Code(s): E66.01 - MORBID (SEVERE) OBESITY DUE TO EXCESS CALORIES; Z68.44 - BODY MASS INDEX [BMI] 60.0-69.9, ADULT Status: Chronic - Plan * Cellulitis of the left leg- slowly improving * Will transition the antibiotics to Keflex. * Life Threatening Obesity * Continue DVT prophylaxis * Stable for discharge home
--- NOTE | 2020-02-24 17:38 | PDOC.DS.DS ---
Provider - Provider Date of Admission: 02/16/20 17:47 Date of Discharge: 02/24/20 Admitting Provider: Daly Yoon MD Primary Care Physician: NO PCP PROVIDER Course - Hospital Course Hospital Course: Mr. Abarca is a 44-year-old gentleman that has a history of morbid obesity. He has not seen a physician in decades. He started to note increasing swelling and redness in the left lower extremity. Then it started to progress to pain. He came to the emergency room for evaluation and was found to have a cellulitis of the left lower extremity. There was significant redness up to above the knee and into the thigh as well as significant swelling. He had a lower extremity venous Doppler which was negative for DVT. He was started on IV antibiotics and over the course of the next several days he demonstrated significant improvement. An echo cardiogram was done which was negative with an EF of 55 to 60% mildly dilated left atrium as well as mild mitral regurgitation. After it was determined that the cellulitis was improving he was able to be discharged home. He was instructed on keeping the leg elevated and once the cellulitis had improved I suggested that he get compression stockings or to use Jesús bandage wrap as a pressure dressing but with mild not very tight pressure. He will be discharged home on Keflex for 1 month followed by penicillin VK for at least 6 months. He was given information on primary care doctors in clinics in the area for follow-up. Resuscitation Status: 02/16/20 18:40 Resuscitation Status Routine Co-Sign Provider: Resuscitation Status: FULL: Full Resuscitation - Labs Lab Results: 02/20/20 13:47 02/21/20 07:33 Microbiology - Entire Visit 02/16/20 16:56 Venous blood - Right Arm Blood Culture - Final NO GROWTH IN 5 DAYS 02/16/20 16:56 Venous blood - Left Arm Blood Culture - Final Coagulase Neg Staphylococcus - Physical Exam Vitals: Vital Signs (12 hours) Temp Pulse Resp BP BP Pulse Ox 02/24/20 08:02 81 130/73 02/24/20 08:00 95 02/24/20 07:24 98.4 F 81 16 130/73 93 L Weight Weight 485 lb 0.271 oz Physical Exam: The patient was seen and examined on the day of discharge. Problem - Problem (1) Cellulitis of left leg Code(s): L03.116 - CELLULITIS OF LEFT LOWER LIMB Status: Acute (2) Morbid obesity with BMI of 60.0-69.9, adult Code(s): E66.01 - MORBID (SEVERE) OBESITY DUE TO EXCESS CALORIES; Z68.44 - BODY MASS INDEX [BMI] 60.0-69.9, ADULT Status: Chronic (3) Hypertension Code(s): I10 - ESSENTIAL (PRIMARY) HYPERTENSION Status: Acute Plan - Discharge Medications Prescriptions: Saccharomyces boulardii [Florastor] 250 mg PO DAILY #30 cap Cephalexin [Keflex] 500 mg PO QID #120 capsule Amlodipine [Norvasc] 2.5 mg PO DAILY #30 tab Penicillin V Potassium 250 mg PO TID #90 tab Home Medications: Medication Instructions Recorded Confirmed Type Aspirin [Ecotrin Low Strength] 81 mg PO DAILY 02/17/20 02/17/20 History Amlodipine [Norvasc] 2.5 mg PO DAILY #30 tab 02/24/20 Rx Cephalexin [Keflex] 500 mg PO QID #120 capsule 02/24/20 Rx Penicillin V Potassium 250 mg PO TID #90 tab 02/24/20 Rx Saccharomyces boulardii [Florastor] 250 mg PO DAILY #30 cap 02/24/20 Rx Allergies: No Known Allergies Allergy (Verified 09/23/12 02:28) - Discharge Instructions Activity:: Activity as Tolerated Nourishment:: Heart Healthy Diet - Follow up Plan Referrals: PROVIDER,NO PCP [Primary Care Provider] - (1-2 WEEKS ) Disposition: HOME Quality - Care Measures CORE MEASURES:: N/A
== END 2020-02-24 18:49 | disposition home or self-care (01) | DRG 872 ==
LOC: ERS 15:16 → T4-B 17:47
PROVIDERS: ADMIT Family Medicine; ATTEND Internal Medicine
DX: A41.9 Sepsis, unspecified organism (principal); L03.116 Cellulitis of left lower limb; E66.2 Morbid (severe) obesity with alveolar hypoventilation; I16.1 Hypertensive emergency; Z68.44 Body mass index [BMI] 60.0-69.9, adult; N17.9 Acute kidney failure, unspecified; R77.8 Other specified abnormalities of plasma proteins; I51.7 Cardiomegaly; I10 Essential (primary) hypertension; D69.6 Thrombocytopenia, unspecified; Z87.891 Personal history of nicotine dependence; Z79.899 Other long term (current) drug therapy; I34.0 Nonrheumatic mitral (valve) insufficiency; Z20.828 Contact with and (suspected) exposure to other viral communicable diseases
CPT/HCPCS: 36415; 71045; 80048; 80053; 80061; 80202; 82553; 83036; 83605; 83880; 84484; 85025; 87040; 87149; 87635; 93005; 93306; 96365; 96367; 96375; J0690; J0692; J1644; J1940; J2270; J3370; J3490; J7030; U0003

== ENCOUNTER 2020-04-17 12:56 | Emergency (ER) | payer SELFPAY ==
[2020-04-17 13:44] LABS: #Eosinphils 0.2 thou/uL (0.0-0.7); #Lymphocytes 1.6 thou/uL (1.20-3.40); #Monocytes 0.6 thou/uL (0.11-0.59); #Neutrophils 5.4 thou/uL (1.40-6.50); %Basophils 0.5 % (0.0-1.0); %Eosinophils 2.5 % (0.0-10.0); %Lymphocytes 20.4 % (21.0-51.0); %Monocytes 8.1 % (0.0-10.0); %Neutrophils 68.5 % (42.0-75.0); Hemoglobin 13.2 g/dL (14.0-18.0); Mean Corpuscular HGB CONC 32.6 g/dL (32.0-36.0); Mean Corpuscular Hemoglobin 35.8 pg (27.0-31.0); Mean Platelet Volume 6.5 fL (7.4-10.4); Platelet Count 136 thou/uL (130-400); RBC Distribution Width 13.1 % (11.5-14.5); Red Blood Cell (RBC) Count 3.68 mill/uL (4.70-6.10); White Blood Cell (WBC) Count 7.9 thou/uL (4.8-10.8)
--- NOTE | 2020-04-17 13:53 | RAD ---
XR Chest 1 View Portable History: Shortness of breath Comparison: Radiograph February 2020 Findings: Lungs are severely hypoinflated with vascular crowding and spurious enlargement of the card iac silhouette. No pneumothorax. No effusion. No acute osseous abnormality. Impression: Severe lung hypoinflation with vascular crowding, spurious enlargement of the cardiac key houette and scattered atelectasis.
[2020-04-17 14:03] LABS: MDiff Complete? YES; Macrocytosis SLIGHT = 6-15 cells (100X) (0-5/hpf); Platelet Morphology Comment Appears Adequate; Polychromasia SLIGHT = 2-3 cells (100X) (0-2/hpf)
[2020-04-17 14:05] LABS: Acetaminophen Less than 6.0 mcg/mL (10.0-30.0); Alcohol Less than 10 mg/dL (Less than 10); Salicylate Less than 8.0 mg/dL (15.0-30.0)
[2020-04-17 14:09] LABS: ALT (SGPT) 17 U/L (8-55); AST (SGOT) 44 U/L (5-34); Albumin 2.2 g/dL (3.5-5.0); Alkaline Phosphatase 113 U/L (40-110); Anion Gap 11 mmol/L (10-20); BUN (Urea Nitrogen) 8 mg/dL (8.9-20.6); Bilirubin, Total 1.3 mg/dL (0.2-1.2); Calc. Creatinine Clearance 0 mL/min (70-130); Calcium 7.8 mg/dL (7.8-10.44); Carbon Dioxide 34 mmol/L (22-29); Chloride 95 mmol/L (98-107); Globulin 6.7 g/dL (2.4-3.5); Glucose 111 mg/dL (70-105); Lipase 17 U/L (8-78); Potassium 3.6 mmol/L (3.5-5.1); Protein, Total 8.9 g/dL (6.0-8.3); Sodium 136 mmol/L (136-145)
[2020-04-17 14:13] LABS: Bacteria/HPF None Seen HPF (None Seen); Bilirubin Negative (Negative); Blood, Urine 3+ (Negative); Clarity Clear (Clear); Glucose, Urine (Dipstick) Normal (Negative); Ketone, Urine Negative (Negative); Leukocyte Negative Leu/uL (Negative); Nitrite Negative (Negative); Protein, Urine (Dipstick) 20 mg/dL (Neg-Trace); Specific Gravity, Urine 1.021 (1.002-1.036); Squamous Epithelial 0-3 HPF (0-3); WBC/HPF 0-3 HPF (0-3); pH, Urine 5.5 (5.0-9.0)
[2020-04-17 14:16] LABS: Amphetamine Not Detected (NotDetected); Barbiturates Screen Not Detected (NotDetected); Benzodiazepine Screen Not Detected (NotDetected); Cocaine Metabolite Screen Not Detected (NotDetected); Medtox Control Line Valid? VALID (VALID); Medtox Reader # READER 4; Methadone Not Detected (NotDetected); Methamphetamine Not Detected (NotDetected); Opiate Screen Not Detected (NotDetected); Oxycodone Screen Not Detected (NotDetected); Phencyclidine (PCP) Not Detected (NotDetected); THC/Cannabinoid Screen Detected (NotDetected); Tricyclic Screen Not Detected (NotDetected)
[2020-04-17] MEDS ORDERED: Famotidine/PF 20 mg/2ml Vial ONE (15:07)
== END 2020-04-17 18:41 | disposition home or self-care (01) ==
LOC: ERS 12:56
DX: R10.84 Generalized abdominal pain (principal); R45.851 Suicidal ideations; E66.9 Obesity, unspecified; I10 Essential (primary) hypertension; J44.9 Chronic obstructive pulmonary disease, unspecified; Z87.891 Personal history of nicotine dependence; Z79.899 Other long term (current) drug therapy
CPT/HCPCS: 36415; 71045; 80053; 80306; 80307; 81003; 81015; 83690; 83880; 84443; 84484; 85025; 93005; 96374; S0028

== ENCOUNTER 2020-04-17 22:30 | Inpatient (IN) | payer SELFPAY ==
[2020-04-18 00:39] LABS: Bilirubin Negative (Negative); Blood, Urine 3+ (Negative); Clarity Clear (Clear); Glucose, Urine (Dipstick) Normal (Negative); Ketone, Urine Negative (Negative); Leukocyte Negative Leu/uL (Negative); Nitrite Negative (Negative); Protein, Urine (Dipstick) 30 mg/dL (Neg-Trace); Specific Gravity, Urine 1.023 (1.002-1.036); Squamous Epithelial 0-3 HPF (0-3); Urobilinogen 3 mg/dL (Less than 2); WBC/HPF 0-3 HPF (0-3); pH, Urine 5.5 (5.0-9.0)
[2020-04-18 00:40] LABS: Bacteria/HPF Rare-Few HPF (None Seen)
[2020-04-18] MEDS ORDERED: Fentanyl 100 MCG/2 ML VIAL ONE (00:50)
[2020-04-18] MEDS ORDERED: Clindamycin/D5W 600 mg/50 ml Premix Bag ONE (01:46)
--- NOTE | 2020-04-18 01:57 | PDOC.FPRHP ---
- History of Present Illness Chief Complaint: Swollen Genitals History of Present Illness: 44yo male presents with testicular pain and swelling. Patient reports that earlier this evening he developed swelling and pain to his testicles. He was seen here 04/17 for abdominal pain that started 3wks ago and states he was not h aving any testicular pain at that time. Reports abdominal pain is a ripping sensation across his upper abdomen. He also reports similar pain near/under his belly button. He thinks it is due to constipation that has not improved with medications. 1 BM a day that is hard. He denies ever having symptoms like this before. No associated dysuria or discharge. No systemic symptoms. Pt is too obese to fit in CT machine. He also reports increased LE swelling over about the past week. He takes Lasix at home for LE swelling. ED Course: Patient had testicular US that was unremarkable and received 600 mg Clindamycin and 75 mcg of fentanyl. - Allergies/Adverse Reactions Allergies Allergy/AdvReac Type Severity Reaction Status Date / Time No Known Allergies Allergy Verified 09/23/12 02:28 - Home Medications Medication Instructions Recorded Confirmed Type Aspirin [Ecotrin Low Strength] 81 mg PO DAILY 02/17/20 04/18/20 History Amlodipine [Norvasc] 2.5 mg PO DAILY #30 tab 02/24/20 04/18/20 Rx Penicillin V Potassium 250 mg PO TID #90 tab 02/24/20 04/18/20 Rx Saccharomyces boulardii [Florastor] 250 mg PO DAILY #30 cap 02/24/20 04/18/20 Rx Furosemide [Lasix] 2 tab PO DAILY 04/18/20 04/18/20 History Omeprazole 20 mg PO DAILY 04/18/20 04/18/20 History Potassium Chloride 10 meq PO DAILY 04/18/20 04/18/20 History Sucralfate 1 gm PO QID 04/18/20 04/18/20 History - History PMHx: Morbid obesity, HTN, PAIGE, OHS PSHx: L knee surgery FHx: noncontributory Social: Denies current etoh/tobacco/drug use. Reports he quit smoking cigars and MJ in 02/2020. He has smoked tobacco "since he was 1" and smoked 7 cigars/day. Smoked MJ QD. Quit drinking etoh in 05/2019, previously drank 12 pack/beer/day or 1 handle amaretto. - Review of Systems General: denies: fever/chills, fatigue Eyes: denies: eye pain, vision changes ENT: denies: nasal congestion, rhinorrhea Respiratory: denies: cough, congestion Cardiovascular: reports: chest pain, edema. denies: palpitation Gastrointestinal: reports: constipation, abdominal pain. denies: diarrhea Genitourinary: denies: incontinence, dysuria, polyuria, discharge Skin: reports: rashes, lesions Musculoskeletal: reports: pain, swelling Neurological: denies: numbness, weakness Psychological: reports: anxiety, depression - Vital signs BP: 162/97, MAP: 118, Pulse: 103, Pain: 10, O2 sat: 87 on (Room Air), Time: 04/17/2020 22:33. Temp: 98.3 (Oral), Time: 04/17/2020 22:37. O2 sat: 92 on (3L Oxygen), Time: 04/17/2020 22:40. Resp: 24, Time: 04/17/2020 22:40. BP: 127/79, Pulse: 89, Resp: 30, O2 sat: 92 on (3L Oxygen), Time: 04/17/2020 23:32. Wt: 245 kg - Physical Exam Constitutional: NAD, awake, alert and oriented, other (Morbidly obese, visibly upset during exam and crying) HEENT: normocephalic and atraumatic, conjunctiva clear, no scleral icterus Neck: supple, trachea midline Chest: no-tender to palpation Heart: RRR, normal S1/S2, no murmurs/rubs/gallops Lungs: CTAB, no respiratory distress, no wheezing, no retractions Abdomen: soft -Abdomen: Mild distension with tenderness to palpation over epigastric and suprapubic regions Musculoskeletal: ROM grossly normal (slightly limited ROM in LLE 2/2 pain), other (obese) Neurological: no focal deficit -Skin: Erythema and chronic venous stasis changes over LLE with increased warmth, Erythema extending from pubic ramus to level of umbilicus. Heme/Lymphatic: no unusual bruising or bleeding, no purpura Psychiatric: intact recent and remote memory, other (Patient endorses depression, denies SI/HI, actively crying on exam) FMR H&P: Results - Labs Result Diagrams: 04/18/20 02:07 04/18/20 11:21 Lab results: Urine Ketones Negative mg/dL (Negative) 04/18/20 00:25 Urine Blood 3+ (Negative) A 04/18/20 00:25 Urine Nitrite Negative (Negative) 04/18/20 00:25 Ur Leukocyte Esterase Negative Maggie/uL (Negative) 04/18/20 00:25 Urine RBC 11-20 HPF (0-3) A 04/18/20 00:25 Urine WBC 0-3 HPF (0-3) 04/18/20 00:25 Ur Squamous Epith Cells 0-3 HPF (0-3) 04/18/20 00:25 Urine Bacteria Rare-Few HPF (None Seen) 04/18/20 00:25 - Radiology Interpretation Chest x-ray Status: report reviewed by me Additional comment: no acute intrathoracic process FMR H&P: A/P - Plan AHRF likely 2/2 Obesity hypoventilation syndrome - Per clinic records, patient was supposed to follow up with pulmonology. Likely also some component of COPD given smoking hx although not formally diagnosed. Likely also has undiagnosed PAIGE that may be contributing - PRN NC O2, wean O2 as tolerated - Home inhaler, Dulera Sepsis 2/2 cellulitis - Patient was seen in hospital 02/2020 for severe LLE cellulitis. Was on IV abx inpatient and transitioned to Kefflex X 1 month then Penicillin VK X 6 months - Areas concerning for infection on LLE and over lower abdomen/pannus - Tachycardia to 100s, tachypneic to upper 20s in ED - Started on IV Clindamycin in ED, will continue - Consider deescalation to PO abx with resolving sx Abdominal Pain - Constipation vs cellulitis - Will get KUB since patient is too large for CT and US - Bowel regimen with goal of 1-2 soft BM QD BLE edema - On PO Lasix at home - IV Lasix now, consider continuation if improvement in sx HTN - Home amlodipine DVT PPX: 60 Lovenox GI PPx: none Diet: HH Code: Full PCP: SPENCER Weaver Dispo: Admit medical obs, LOS likely < 48 hrs FMR H&P: Upper Level - Pertinent history Mr Abarca is a 44yo male who presents with testicular pain and swelling that started sometime after his ER visit earlier today for abdominal pain. No urinary symptoms, fever or chills. Testicular US in ED was normal. He was started on Clinda for tx of cellulitis. Reports having daily BMs but very hard, denies n/v. Abdominal pain still present and constant. Endorses SOB. Able to ambulate approx. 15 steps. PE: General: NAD, morbidly obese CV: RRR, no murmur Pulm: CTA b/l Abdomen: Redness, warmth and tenderness on pannus. Reports pain superficial and deep. No rebound or rigidity. BS + Extremities: 2+ edema to knees, lymphedema and hyperpigmentation Psych: Tearful. Denies SI/HI A/P: Sepsis 2/2 Cellulitis -Initially tachycardic and tachypneic. Bld cxs drawn in ED. Continue Clindamycin started in ED, can consider transition to Bactrim tomorrow. Start probiotics to reduce risk of C diff. Check A1c. Admit to medicine Acute Hypoxic respiratory failure 2/2 volume overload vs obesity hypoventilation syndrome -Initially 87% on RA, now 93% on 4L. CXR no acute findings. Wean O2 as tolerated. Significant scrotal swelling and 2+ LE edema. Will give IV Lasix and monitor strict I/O to adjust dosing. Weigh daily. Recommend outpt sleep study. Abdominal Pain Ddx: Cellulitis vs constipation. Too large for CT scan and Abdominal US likely significantly limited by body habitus. Will check KUB. Treat constipation with aggressive bowel regimen. Hematuria - Plan Date/Time: 04/18/20 0510 I, Martha Contreras, have evaluated this patient and agree with findings/plan as outlined by purchasing intern resident. Pertinent changes/additions are listed here. Addendum - Attending - Attending Attestation Date/Time: 04/18/20 [id number] I personally evaluated the patient and discussed the management with Dr. Gomes. I agree with the History, Examination, Assessment and Plan documented above with any addition or exceptions noted below.
[2020-04-18 02:24] LABS: #Basophils 0.1 thou/uL (0.0-0.2); #Eosinphils 0.3 thou/uL (0.0-0.7); #Lymphocytes 2.1 thou/uL (1.20-3.40); #Neutrophils 6.7 thou/uL (1.40-6.50); %Basophils 0.6 % (0.0-1.0); %Eosinophils 2.7 % (0.0-10.0); %Lymphocytes 20.5 % (21.0-51.0); %Monocytes 9.9 % (0.0-10.0); %Neutrophils 66.3 % (42.0-75.0); Hemoglobin 11.7 g/dL (14.0-18.0); Mean Corpuscular HGB CONC 32.3 g/dL (32.0-36.0); Mean Corpuscular Hemoglobin 34.9 pg (27.0-31.0); Mean Platelet Volume 6.4 fL (7.4-10.4); Platelet Count 156 thou/uL (130-400); RBC Distribution Width 13.2 % (11.5-14.5); Red Blood Cell (RBC) Count 3.35 mill/uL (4.70-6.10); White Blood Cell (WBC) Count 10.1 thou/uL (4.8-10.8)
[2020-04-18] MEDS ORDERED: Furosemide 40 MG/4 ML VIAL SLOW IVP SCH (04:00)
[2020-04-18 04:05] LABS: Hemoglobin A1c 4.8 % (4.0-6.0)
[2020-04-18] MEDS ORDERED: Milk Of Magnesia 30 ML UDCUP PO SCH (05:06)
[2020-04-18] MEDS ORDERED: Bisacodyl 10 MG SUPP PR PRN (05:06)
[2020-04-18] MEDS ORDERED: Senokot S 8.6-50 MG TAB PO PRN (05:06)
[2020-04-18] MEDS ORDERED: Bisacodyl 5 MG TAB PO PRN (05:06)
[2020-04-18] MEDS ORDERED: Calcium Carbonate 500 MG ChewTAB PO PRN (05:06)
--- NOTE | 2020-04-18 07:59 | ULT ---
PRELIMINARY REPORT/[facility]/EMERGENCY AFTER HOURS PROCEDURE: EXAM: US Scrotum. CLINICAL HISTORY: HX: LARGE AMOUNT OF TESTICULAR SWELLING TECHNIQUE: Real-time ultrasound of the scrotum with color Doppler and image documentation. COMPARISON: None provided. FINDINGS: RIGHT TESTICLE: No mass. Normal Doppler flow. Measures 3.2 x 2.0 x 2.0 cm LEFT TESTICLE: No mass. Normal Doppler flow. Measures 3.4 x 1.8 x 2.3 cm and demonstrates an echogen ic focus in the upper pole measuring 2.7 x 8.0 x 2.9 mm EPIDIDYMIDES: Unremarkable. SCROTUM: Bilateral scrotal wall edema is noted. IMPRESSION: No evidence for testicular torsion. Bilateral scrotal edema is noted. A small echogenic focus is noted in the LEFT upper testicular pole of uncertain etiology, and follow-up imaging is advised. ELECTRONICALLY SIGNED BY: Garth Araujo MD Apr 18, 2020 1:15:39 AM ALL SOURCE ANALYST FINAL REPORT EMERGENT AFTER HOURS TESTICULAR ULTRASOUND: HISTORY: Testicular pain and scrotal swelling. COMPARISON: None. IMPRESSION: 1. Nonspecific echogenic focus measuring less than 1 cm seen in the superior pole left testicle of un certain etiology or clinical significance. However, short interval follow-up evaluation is suggested after resolution of patient's scrotal edema. 2. Bilateral testicles otherwise demonstrate a normal sonographic appearance. Flow is demonstrated in the left testicle. Provided images documenting flow within the right testicle are only obtained at the periphery which limits evaluation for adequate assessment of intratesticular flow. 3. Significant scrotal wall edema. Cellulitis is a possibility, but this would be better assessed cli nically. There is suggestion of a more defined area of edema/collection within the scrotal wall, but racing board marker noted on real-time imaging that this did not demonstrate defined margins to suggest a bscess collection. 4. No evidence of a hydrocele. 5. Findings are agreement with preliminary report by [facility]. Transcribed Date/Time: 04/18/2020 8:38 AM
[2020-04-18] MEDS ORDERED: Potassium Chloride 10 MEQ TAB PO SCH (08:00)
[2020-04-18] MEDS: Mometasone 200 MCG/Formoterol 5 MCG 120 PUFF INHALER INH SCH ×2 (08:47→19:18)
[2020-04-18] MEDS ORDERED: Enoxaparin Sodium 40 MG/0.4 ML SYRINGE SC SCH (09:00)
[2020-04-18] MEDS ORDERED: Saccharomyces boulardii 250 MG CAP PO SCH (09:00)
--- NOTE | 2020-04-18 09:00 | RAD ---
EXAM: XR Abdomen 1 View/KUB PROVIDED CLINICAL HISTORY: Abdominal pain. COMPARISON: None FINDINGS: This examination is limited secondary to patient body habitus. Bowel gas pattern is overall nonspecif ic. No obvious suspicious calcifications are appreciated, but calcifications related to renal or ureteral calculi would be difficult to exclude based on this exam. Mild degenerative changes are seen in the spine. IMPRESSION: Limited exam, but there is a nonspecific bowel gas pattern.
[2020-04-18] MEDS: Lactinex Tablet PO SCH (09:08)
[2020-04-18] MEDS: Clindamycin/D5W 600 MG in Premix Bag 1 BAG IVPB SCH ×2 (09:10→16:35)
[2020-04-18] MEDS: Polyethylene Glycol 3350 17 GM Packet PO SCH (09:10)
[2020-04-18] MEDS: Enoxaparin Sodium 80 MG/0.8 ML SYRINGE SC SCH (09:11)
[2020-04-18] MEDS: Sucralfate 1 GM/10 ML UDCUP PO SCH ×4 (09:11→21:06)
[2020-04-18] MEDS: Potassium Chloride 10 MEQ TAB PO SCH (09:12)
[2020-04-18] MEDS ORDERED: FLU VACC QS2020-21(6MOS UP)/PF 60 MCG/0.5 ML SYRINGE IM ONE (09:15)
[2020-04-18] MEDS: Amlodipine 5 MG TAB PO SCH (09:17)
[2020-04-18] MEDS: Aspirin 81 mg Enteric Coated Tablet PO SCH (09:18)
[2020-04-18] MEDS: Furosemide 20 MG TAB PO SCH (10:36)
[2020-04-18 15:57] LABS: SARS-CoV-2 PCR by NAA Not Detected (NotDetected)
[2020-04-18] MEDS: hydrOXYzine 25 MG TAB PO PRN (18:39)
[2020-04-18] MEDS: Morphine 2 MG/ML VIAL SLOW IVP PRN (18:39)
[2020-04-18] MEDS: Furosemide 40 MG/4 ML VIAL SLOW IVP SCH (20:04)
[2020-04-19] MEDS: Clindamycin/D5W 600 MG in Premix Bag 1 BAG IVPB SCH ×3 (02:59→17:04)
[2020-04-19] MEDS: Acetaminophen 325 MG TAB PO PRN ×2 (03:49→12:18)
[2020-04-19] MEDS: Furosemide 40 MG/4 ML VIAL SLOW IVP SCH ×2 (04:38→19:59)
[2020-04-19 05:53] LABS: Hemoglobin 11.8 g/dL (14.0-18.0); Mean Corpuscular HGB CONC 32.5 g/dL (32.0-36.0); Mean Corpuscular Hemoglobin 35.3 pg (27.0-31.0); Mean Platelet Volume 6.8 fL (7.4-10.4); Platelet Count 132 thou/uL (130-400); Red Blood Cell (RBC) Count 3.35 mill/uL (4.70-6.10)
[2020-04-19 06:06] LABS: ALT (SGPT) 15 U/L (8-55); AST (SGOT) 49 U/L (5-34); Albumin 2.1 g/dL (3.5-5.0); Alkaline Phosphatase 101 U/L (40-110); Anion Gap 10 mmol/L (10-20); BUN (Urea Nitrogen) 9 mg/dL (8.9-20.6); Bilirubin, Total 1.2 mg/dL (0.2-1.2); Calc. Creatinine Clearance 323 mL/min (70-130); Calcium 7.8 mg/dL (7.8-10.44); Carbon Dioxide 30 mmol/L (22-29); Chloride 97 mmol/L (98-107); Globulin 6.7 g/dL (2.4-3.5); Glucose 101 mg/dL (70-105); Potassium 4.1 mmol/L (3.5-5.1); Protein, Total 8.8 g/dL (6.0-8.3); Sodium 133 mmol/L (136-145)
[2020-04-19 06:12] LABS: Band 1 % (5-11); Eosinophils 2 % (0-10); Lymphocytes 23 % (21-51); MDiff Complete? YES; Macrocytosis SLIGHT = 6-15 cells (100X) (0-5/hpf); Monocytes 14 % (0-10); Neutrophil 60 % (42-75)
[2020-04-19] MEDS: Mometasone 200 MCG/Formoterol 5 MCG 120 PUFF INHALER INH SCH ×2 (07:23→18:27)
[2020-04-19] MEDS: Morphine 2 MG/ML VIAL SLOW IVP PRN (07:52)
[2020-04-19 08:15] LABS: Iron 58 ug/dL (65-175); Iron Binding Capacity, Total 209 mcg/dL (261-462)
[2020-04-19 08:41] LABS: Ferritin 115.51 ng/mL (22-322)
[2020-04-19] MEDS ORDERED: Furosemide 40 MG/4 ML VIAL SLOW IVP SCH (09:00)
--- NOTE | 2020-04-19 09:09 | PDOC.FM ---
- Subjective Subjective: Pt lying in bed still on 3-4L NC. States his pain is improved from yesterday. Marked area of skin redness regressed some today. Urology here to insert sawyer, will continue with diuresis. - Objective MAR Reviewed: Yes Vital Signs & Weight: Vital Signs (12 hours) Temp Pulse Resp BP Pulse Ox 04/19/20 07:26 94 L 04/19/20 07:23 80 22 H 94 L 04/19/20 03:59 97.8 F 81 16 134/77 93 L 04/19/20 00:03 99.9 F H 91 16 155/74 H 90 L Weight Weight 245 kg I&O: 04/18/20 04/19/20 04/20/20 06:59 06:59 06:59 Intake Total 1640 Balance 1640 Result Diagrams: 04/19/20 05:26 04/19/20 05:26 Phys Exam - Physical Examination HEENT: moist MMs Neck: supple Respiratory: no wheezing, clear to auscultation bilateral still on NC Cardiovascular: RRR, no significant murmur Gastrointestinal: positive bowel sounds Musculoskeletal: edema present (2+ b/l pitting edema) Neurological: normal sensation, moves all 4 limbs Psychiatric: A&O x 3 Deviation from normal: LLE edema, redness and warmth. -: area of redness marked on pannus showed improvement and regression Dx/Plan - Plan Plan: AHRF likely 2/2 Obesity hypoventilation syndrome - Per clinic records, patient was supposed to follow up with pulmonology. Likely also some component of COPD given smoking hx although not formally diagnosed. Likely also has undiagnosed PAIGE that may be contributing - PRN NC O2, wean O2 as tolerated - Home inhaler, Dulera - incentive spirometer - Duonebs PRN Sepsis 2/2 cellulitis - Patient was seen in hospital 02/2020 for severe LLE cellulitis. Was on IV abx inpatient and transitioned to Kefflex X 1 month then Penicillin VK X 6 months - Areas concerning for infection on LLE and over lower abdomen/pannus - Tachycardia to 100s, tachypneic to upper 20s in ED - Started on IV Clindamycin in ED, will continue and add Vanc - Consider deescalation to PO abx with resolving sx Abdominal Pain - Constipation vs cellulitis - KUB shows nonspecific gas patterns - Bowel regimen with goal of 1-2 soft BM QD BLE edema, scrotal edema - On PO Lasix at home, will hold - IV 40mg Lasix daily -strict I/Os -Urology to place sawyer as nursing was unable to place 2/2 body habitus and swelling -testicular U/s showed echogenic focus in L upper testicular pole , follow up advised. Will follow up with radiology and order follow up imaging HTN - Home amlodipine Hematuria -urology consulted -patient will likely need to follow up outpatient to rule out bladder cancer g iven smoking history-40+pack years DVT PPX: 60 Lovenox GI PPx: none Diet: HH Code: Full PCP: SPENCER Weaver Dispo: Admit medical inpatient. Patient still on O2. Goal to diurese, weane O2 at able. PT/OT/CM for dispo planning. Continue with IS. Dietary consult Addendum - Attending - Attending Attestation Date/Time: 04/19/20 6438 I personally evaluated the patient and discussed the management with Dr. Schwarz. I agree with the History, Examination, Assessment and Plan documented above with any addition or exceptions noted below. Patient unable to void yesterday and multiple attempts at a sawyer were unsuccessful. Urology is at bedside this morning to try to place a sawyer so that we can diurese the patient. Continue antibiotics for cellulitis.
[2020-04-19] MEDS ORDERED: Morphine 2 MG/ML VIAL IV SCH (09:15)
[2020-04-19] MEDS: Amlodipine 5 MG TAB PO SCH (10:09)
[2020-04-19] MEDS: Lactinex Tablet PO SCH (10:09)
[2020-04-19] MEDS: Potassium Chloride 10 MEQ TAB PO SCH ×2 (10:09→11:25)
[2020-04-19] MEDS: Aspirin 81 mg Enteric Coated Tablet PO SCH (10:10)
[2020-04-19] MEDS: Furosemide 20 MG TAB PO SCH (10:10)
[2020-04-19] MEDS: Polyethylene Glycol 3350 17 GM Packet PO SCH (10:10)
[2020-04-19] MEDS: Multivit, Therapeutic 1 TAB PO SCH (11:24)
[2020-04-19] MEDS: Sucralfate 1 GM/10 ML UDCUP PO SCH ×5 (11:26→23:23)
[2020-04-19] MEDS: Enoxaparin Sodium 80 MG/0.8 ML SYRINGE SC SCH (13:46)
--- NOTE | 2020-04-19 18:08 | CON ---
DATE OF CONSULTATION: 04/19/2020 REQUESTING PHYSICIAN: [facility], Dr. Alexa Schwarz. REASON FOR CONSULTATION: Genital edema and difficult Lobo catheter placement. HISTORY OF PRESENT ILLNESS: Mr. Abarca is a 44-year-old morbidly obese male with history of COPD, who presented to the hospital on 04/17/2020 with a 3-week history of abdominal pain. The patient reports a ripping sensation across his upper abdomen. The patient has been unable to have a CT scan secondary to his body habitus. He has had increasing lower extremity and genital edema over the past several days. He is no longer able to expose his penis secondary to severe genital edema. There was some redness over this area as well, concerning for cellulitis. Urology was consulted for further evaluation. The patient denies any difficulty voiding until recently. He said he has never had this severe genital edema in the past. He reports pain in the suprapubic area as well as the scrotum. He was able to void one time last night. He currently does not have the urge to void. No feeling of incomplete bladder emptying. He has never seen a urologist in the past. No other complaints. REVIEW OF SYSTEMS: Full 12-point review of systems was performed and is negative other than that mentioned in HPI. PAST MEDICAL HISTORY: Morbid obesity, hypertension, PAIGE, and OHS. PAST SURGICAL HISTORY: Left knee surgery. FAMILY HISTORY: Noncontributory. SOCIAL HISTORY: No alcohol or tobacco. The patient reports that he smoked marijuana daily until he started having breathing issues. He was previously a heavy alcohol user, but quit in May of 2019. ALLERGIES: NO KNOWN DRUG ALLERGIES. HOME MEDICATIONS: 1. Aspirin. 2. Amlodipine. 3. Furosemide. 4. Omeprazole. 5. Potassium chloride. PHYSICAL EXAMINATION: VITAL SIGNS: Temperature is 98.3, blood pressure 162/97, pulse 94, respirations 14, oxygen saturation 92% on 3 L nasal cannula. GENERAL: He is alert and oriented x3, in no apparent distress. HEENT: Normocephalic and atraumatic. NECK: Supple. No masses or lymphadenopathy. CARDIOVASCULAR: Tachycardic, but regular. PULMONARY: Breathing unlabored. ABDOMEN: Obese, soft, nontender/nondistended. GENITOURINARY: 4+ suprapubic and penoscrotal edema. There is mild erythema over the suprapubic area. There is no erythema over the scrotum. No induration, but there is severe edema present. Penis is not able to be exposed. EXTREMITIES: 3+ bilateral lower extremity edema. LABORATORY DATA: White blood cell count 9.0, hemoglobin 11.8, hematocrit 36.3, platelets 132. Sodium 133, potassium 4.1, chloride 97, bicarb 30, BUN 9, creatinine 0.99. Urinalysis 3+ blood, negative leukocyte esterase, 11-20 red blood cells per high-power field, 0-3 white blood cells per high-power field, few bacteria. RADIOLOGY DATA: Scrotal ultrasound demonstrates severe scrotal edema and a small echogenic focus in the left upper testicular pole. ASSESSMENT: A 44-year-old male with severe morbid obesity, possible cellulitis of the suprapubic area, severe penoscrotal edema and difficult Lobo catheter placement. PLAN: I discussed the patient's condition with he and the primary team. The primary team requests Lobo catheter for strict monitoring of his I's and O's. He has been able to void. After discussing this with the patient, he elects to have a Lobo catheter placed. Attempt at placing a Lobo via digital direction blindly was unsuccessful. At this point, we elected to perform cystoscopy. I explained the procedure to the patient. After informed consent was performed, the patient's genitalia was prepped and draped in usual sterile fashion. A flexible cystoscope was properly attached at the bedside. We performed cystoscopy into the opening of his involuted penis within the scrotum. We were able to visualize the opening. A wire was then threaded through the scope and curled within the bladder. The scope was removed. Attempt at placing a 16-Macanese Councill catheter over this was unsuccessful. At this point, we placed a 5-Macanese open-ended ureteral catheter over the wire to stiffen it. We then placed a Councill catheter over the 5-Macanese open-ended ureteral catheter as well as a wire and we were able to advance the Councill catheter in successfully. The open-ended catheter and wire were removed. 10 mL of sterile water was placed in the balloon. There was immediate return of approximately 50 mL of piedad urine. The patient appeared to be emptying his bladder well. The patient tolerated the procedure well. He was given 2 doses of intravenous morphine for pain control. This Lobo catheter should remain in place until it is no longer clinically indicated. The patient appeared to be emptying his bladder very well. Once his I's and O's do not need to be monitored, his Lobo catheter can be removed per primary team. Job ID: [id number]
[2020-04-20] MEDS: Clindamycin/D5W 600 MG in Premix Bag 1 BAG IVPB SCH ×2 (01:26→12:51)
[2020-04-20 05:48] LABS: Hemoglobin 11.7 g/dL (14.0-18.0); Mean Corpuscular HGB CONC 31.9 g/dL (32.0-36.0); Mean Corpuscular Hemoglobin 34.6 pg (27.0-31.0); Mean Platelet Volume 6.5 fL (7.4-10.4); Platelet Count 131 thou/uL (130-400); RBC Distribution Width 12.9 % (11.5-14.5); Red Blood Cell (RBC) Count 3.38 mill/uL (4.70-6.10); Vancomycin, Trough 22.6 ug/mL; White Blood Cell (WBC) Count 8.3 thou/uL (4.8-10.8)
[2020-04-20 05:51] LABS: ALT (SGPT) 14 U/L (8-55); AST (SGOT) 35 U/L (5-34); Albumin 2.1 g/dL (3.5-5.0); Alkaline Phosphatase 99 U/L (40-110); Anion Gap 7 mmol/L (10-20); BUN (Urea Nitrogen) 9 mg/dL (8.9-20.6); Bilirubin, Total 1.4 mg/dL (0.2-1.2); Calc. Creatinine Clearance 326 mL/min (70-130); Calcium 7.7 mg/dL (7.8-10.44); Carbon Dioxide 34 mmol/L (22-29); Chloride 97 mmol/L (98-107); Globulin 6.3 g/dL (2.4-3.5); Glucose 112 mg/dL (70-105); Potassium 3.6 mmol/L (3.5-5.1); Protein, Total 8.4 g/dL (6.0-8.3); Sodium 134 mmol/L (136-145)
[2020-04-20 06:27] LABS: Band 3 % (5-11); Eosinophils 4 % (0-10); Lymphocytes 16 % (21-51); MDiff Complete? YES; Monocytes 12 % (0-10); Neutrophil 65 % (42-75)
--- NOTE | 2020-04-20 06:51 | PDOC.FM ---
- Subjective Subjective: Pt resting in bed. States he feels better than yesterday, but still feels mildly short of breath. Pain improved, but still inhibiting his ability to move around along with his swelling. Urology placed sawyer yesterday - Objective MAR Reviewed: Yes Vital Signs & Weight: Vital Signs (12 hours) Temp Pulse Resp BP Pulse Ox 04/20/20 04:00 97.8 F 80 20 138/77 93 L 04/20/20 00:28 99.0 F 84 20 128/72 95 04/19/20 21:00 98.6 F 76 20 122/71 93 L 04/19/20 20:00 95 Weight Weight 245 kg I&O: 04/18/20 04/19/20 04/20/20 06:59 06:59 06:59 Intake Total 1640 3011 Output Total 1750 Balance 1640 1261 Result Diagrams: 04/20/20 05:12 04/20/20 05:12 Phys Exam - Physical Examination Constitutional: NAD obese male Respiratory: no wheezing, clear to auscultation bilateral Cardiovascular: RRR, no significant murmur Gastrointestinal: soft, positive bowel sounds diffusely TTP Musculoskeletal: pulses present Neurological: moves all 4 limbs Psychiatric: A&O x 3 Deviation from normal: LLE red, tender, warm -: pannus red, tender, regression from marked area.impressive scrotal swelling Dx/Plan - Plan Plan: AHRF likely 2/2 Obesity hypoventilation syndrome - Per clinic records, patient was supposed to follow up with pulmonology. Likely also some component of COPD given smoking hx although not formally diagnosed. Likely also has undiagnosed PAIGE that may be contributing - PRN NC O2, wean O2 as tolerated - Home inhaler, Dulera - incentive spirometer - Duonebs PRN Sepsis 2/2 cellulitis - Patient was seen in hospital 02/2020 for severe LLE cellulitis. Was on IV abx inpatient and transitioned to Kefflex X 1 month then Penicillin VK X 6 months - Areas concerning for infection on LLE and over lower abdomen/pannus - Tachycardia to 100s, tachypneic to upper 20s in ED - Started on IV Clindamycin in ED, will continue and add Vanc - Consider deescalation to PO abx with resolving sx -follow up XR LLE, CRP, ESR Abdominal Pain - Constipation vs cellulitis - KUB shows nonspecific gas patterns - Bowel regimen with goal of 1-2 soft BM QD BLE edema, scrotal edema - On PO Lasix at home, will hold - IV 40mg Lasix daily -strict I/Os -Urology to place sawyer as nursing was unable to place 2/2 body habitus and swelling -testicular U/s showed echogenic focus in L upper testicular pole , follow up advised. Will follow up with radiology and order follow up imaging HTN - Home amlodipine Hematuria -urology consulted -patient will likely need to follow up outpatient to rule out bladder cancer given smoking history-40+pack years DVT PPX: 60 Lovenox GI PPx: none Diet: HH Code: Full PCP: SPENCER Weaver Dispo: Admit medical inpatient. Patient still on O2. Goal to diurese, weane O2 at able. PT/OT/CM for dispo planning. Continue with IS. Dietary consult Addendum - Attending - Attending Attestation Date/Time: 04/20/20 1000 I personally evaluated the patient and discussed the management with Dr. Schwarz. I agree with the History, Examination, Assessment and Plan documented above with any addition or exceptions noted below. Abdominal cellulitis is improving. Pt would benefit from continued diuresis. Wean o2 as able.
[2020-04-20] MEDS: Mometasone 200 MCG/Formoterol 5 MCG 120 PUFF INHALER INH SCH ×2 (07:11→18:45)
--- NOTE | 2020-04-20 09:23 | RAD ---
3 views left foot: 04/20/2020 COMPARISON: 07/02/2011 HISTORY: Nonhealing cellulitis FINDINGS: There is soft tissue swelling involving the midfoot, particularly the dorsal aspect of the midfoot, extending into the region of the forefoot, new when compared to the prior exam. There is prominent enthesophyte formation at the insertion of the Achilles tendon and origin of the plantar ap oneurosis. No acute fracture or dislocation. No radiopaque foreign body or subcutaneous gas IMPRESSION: Prominent dorsal soft tissue swelling/skin thickening over the midfoot and forefoot consi stent with the provided history of cellulitis. No radiopaque foreign body.
[2020-04-20] MEDS ORDERED: Clindamycin/D5W 900 MG in Premix Bag 1 BAG IVPB SCH (10:29)
[2020-04-20] MEDS: Vancomycin 1.5 GRAM/300 ML BAG 1.5 GM in Premix Bag 1 BAG IVPB SCH ×2 (10:43→21:30)
[2020-04-20] MEDS: Furosemide 40 MG/4 ML VIAL SLOW IVP SCH ×2 (10:44→21:31)
[2020-04-20] MEDS: Lactinex Tablet PO SCH (10:44)
[2020-04-20] MEDS: Multivit, Therapeutic 1 TAB PO SCH (10:45)
[2020-04-20] MEDS: Amlodipine 5 MG TAB PO SCH (10:45)
[2020-04-20] MEDS: Potassium Chloride 10 MEQ TAB PO SCH (10:45)
[2020-04-20] MEDS: Sucralfate 1 GM/10 ML UDCUP PO SCH ×4 (10:46→21:30)
[2020-04-20] MEDS: Aspirin 81 mg Enteric Coated Tablet PO SCH (10:46)
[2020-04-20] MEDS: Polyethylene Glycol 3350 17 GM Packet PO SCH (10:47)
[2020-04-20] MEDS: Clindamycin/D5W 900 MG in Premix Bag 1 BAG IVPB SCH ×2 (11:23→16:51)
[2020-04-20] MEDS: Enoxaparin Sodium 80 MG/0.8 ML SYRINGE SC SCH (13:27)
[2020-04-20] MEDS: Morphine 2 MG/ML VIAL SLOW IVP PRN (15:23)
[2020-04-20] MEDS ORDERED: Gabapentin 300 MG CAP PO SCH (15:30)
[2020-04-21] MEDS: Clindamycin/D5W 900 MG in Premix Bag 1 BAG IVPB SCH (02:15)
[2020-04-21] MEDS: Gabapentin 300 MG CAP PO PRN ×3 (02:54→22:40)
[2020-04-21 06:13] LABS: ALT (SGPT) 14 U/L (8-55); AST (SGOT) 39 U/L (5-34); Albumin 2.1 g/dL (3.5-5.0); Alkaline Phosphatase 101 U/L (40-110); Anion Gap 11 mmol/L (10-20); BUN (Urea Nitrogen) 9 mg/dL (8.9-20.6); Bilirubin, Total 1.2 mg/dL (0.2-1.2); Calc. Creatinine Clearance 314 mL/min (70-130); Calcium 7.8 mg/dL (7.8-10.44); Carbon Dioxide 33 mmol/L (22-29); Chloride 95 mmol/L (98-107); Globulin 6.6 g/dL (2.4-3.5); Glucose 106 mg/dL (70-105); Potassium 3.8 mmol/L (3.5-5.1); Protein, Total 8.7 g/dL (6.0-8.3); Sodium 135 mmol/L (136-145)
[2020-04-21 06:41] LABS: Hemoglobin 11.7 g/dL (14.0-18.0); Mean Corpuscular HGB CONC 32.1 g/dL (32.0-36.0); Mean Corpuscular Hemoglobin 35.2 pg (27.0-31.0); Mean Platelet Volume 6.8 fL (7.4-10.4); Platelet Count 121 thou/uL (130-400); Red Blood Cell (RBC) Count 3.33 mill/uL (4.70-6.10); White Blood Cell (WBC) Count 7.7 thou/uL (4.8-10.8)
--- NOTE | 2020-04-21 07:05 | PDOC.FM ---
- Subjective Subjective: Patient resting comfortably in bed this AM. States leg pain is well controlled compared to yesterday. Does not feel SOB, no CP. Thinks swelling may have decreased. Endorses fatigue, weakness. Endorses persistent pain in abdomen and LLE. XR yesterday of LLE was negative for osteo, suggestive of cellulitis. - Objective MAR Reviewed: Yes Vital Signs & Weight: Vital Signs (12 hours) Temp Pulse Resp BP Pulse Ox 04/21/20 03:49 98.6 F 86 18 151/71 H 95 04/20/20 23:08 98.7 F 85 18 145/63 H 93 L 04/20/20 20:52 98.7 F 82 18 160/81 H 94 L 04/20/20 20:25 93 L Weight Weight 245 kg I&O: 04/20/20 04/21/20 04/22/20 06:59 06:59 06:59 Intake Total 3011 2510 Output Total 1750 2755 Balance 1261 -245 Result Diagrams: 04/21/20 05:38 04/21/20 05:38 Phys Exam - Physical Examination Constitutional: NAD morbid obesity Neck: full ROM Respiratory: no wheezing, clear to auscultation bilateral hard to appreciate with body habitus Cardiovascular: RRR, no significant murmur redness, small, dark red circular lesions diffusely b/l LLE Neurological: moves all 4 limbs Psychiatric: A&O x 3 Deviation from normal: venous statis b/l LLE. tender, red, warm LLE and pannus Dx/Plan - Plan Plan: AHRF likely 2/2 Obesity hypoventilation syndrome - Per clinic records, patient was supposed to follow up with pulmonology. Likely also some component of COPD given smoking hx although not formally diagnosed. Likely also has undiagnosed PAIGE that may be contributing - PRN NC O2, wean O2 as tolerated - Home inhaler, Dulera - incentive spirometer - Duonebs PRN -CXR pending Sepsis 2/2 cellulitis - Patient was seen in hospital 02/2020 for severe LLE cellulitis. Was on IV abx inpatient and transitioned to Kefflex X 1 month then Penicillin VK X 6 months - Areas concerning for infection on LLE and over lower abdomen/pannus - Tachycardia to 100s, tachypneic to upper 20s in ED - Started on IV Clindamycin in ED, will continue and add Vanc, increased Clinda (04/20) to 900mg TID - Consider deescalation to PO abx with resolving sx - XR LLE: no osteo, suggestive of cellulitis -CRP pending, ESR greatly elevated at 99 Macrocytic Anemia -Folate, B12 WNL -denies alcohol use, TSH WNL -peripheral smear pending Abdominal Pain - Constipation vs cellulitis - KUB shows nonspecific gas patterns - Bowel regimen with goal of 1-2 soft BM QD BLE edema, scrotal edema - On PO Lasix at home for edema, will hold - IV 80mg Lasix BID -strict I/Os -Urology to place sawyer as nursing was unable to place 2/2 body habitus and swelling -testicular U/s showed echogenic focus in L upper testicular pole , follow up advised. Spoke with radiology and they think it may just be an engorged vessel in setting of swelling. Recommend follow up ultrasound when euvolemic -BNP pending -Echo 02/2020 WNL -Urine studies to see if patient is spilling protein -RUQ ultrasound to see if patient has GLEASON/cirrhosis that could be contributing to edema HTN - Home amlodipine Hematuria -urology consulted -patient will likely need to follow up outpatient to rule out bladder cancer given smoking history-40+pack years DVT PPX: 60 Lovenox GI PPx: none Diet: HH Code: Full PCP: SPENCER Weaver Dispo: Admit medical inpatient. Patient still on O2. Goal to diurese, weane O2 at able. PT/OT/CM for dispo planning. Continue with IS. Dietary consult. Follow up peripheral smear, urine studies, RUQ sono, CXR Addendum - Attending - Attending Attestation Date/Time: 04/21/20 1413 I personally evaluated the patient and discussed the management with Dr. Schwarz. I agree with the History, Examination, Assessment and Plan documented above with any addition or exceptions noted below. Erythema of pannus with warmth and tenderness. I think he needs additional diuresis and continued antibiotics, as well as nystatin added. Intertrigo likely began this in terms of skin breakdown. He legs look like chronic venous stasis with ? pseudocellulitis but there is so much product on his left leg I cannot examine it properly. Continue vanc and monitor. I reviewed sono and no significant abscess. Looks more like small amount of cobblestoning c/w cellulitis on my review. Nothing drainable.
[2020-04-21 07:26] LABS: Band 3 % (5-11); Eosinophils 5 % (0-10); Lymphocytes 18 % (21-51); MDiff Complete? YES; Macrocytosis MODERATE=16-30 cells (100X) (0-5/hpf); Metamyelocyte 1 % (0-0); Monocytes 14 % (0-10); Neutrophil 59 % (42-75); Platelet Morphology Comment Appears Decreased; Polychromasia SLIGHT = 2-3 cells (100X) (0-2/hpf)
[2020-04-21] MEDS: Mometasone 200 MCG/Formoterol 5 MCG 120 PUFF INHALER INH SCH ×2 (07:35→18:24)
[2020-04-21] MEDS: Lidocaine 5% Patch TD SCH (08:43)
[2020-04-21] MEDS: Vancomycin 1.5 GRAM/300 ML BAG 1.5 GM in Premix Bag 1 BAG IVPB SCH ×2 (08:43→21:44)
[2020-04-21] MEDS: Sucralfate 1 GM/10 ML UDCUP PO SCH ×4 (08:44→21:44)
[2020-04-21] MEDS: Enoxaparin Sodium 80 MG/0.8 ML SYRINGE SC SCH (08:44)
[2020-04-21] MEDS: Amlodipine 5 MG TAB PO SCH (08:45)
[2020-04-21] MEDS: Lactinex Tablet PO SCH (08:45)
[2020-04-21] MEDS: Aspirin 81 mg Enteric Coated Tablet PO SCH (08:45)
[2020-04-21] MEDS: Multivit, Therapeutic 1 TAB PO SCH (08:46)
[2020-04-21] MEDS: Furosemide 40 MG/4 ML VIAL SLOW IVP SCH ×2 (08:46→21:44)
[2020-04-21] MEDS: Potassium Chloride 10 MEQ TAB PO SCH (08:47)
[2020-04-21] MEDS: Polyethylene Glycol 3350 17 GM Packet PO SCH (08:47)
--- NOTE | 2020-04-21 09:56 | RAD ---
Frontal radiograph chest: 04/21/2020 COMPARISON: 04/17/2020 HISTORY: Shortness of breath, new oxygen requirement FINDINGS: Body habitus and portable technique limits detailed assessment. The cardiac silhouette appe ars enlarged. There is pulmonary vascular prominence. There is nonspecific increased linear density in the right lung base in the left suprahilar region, nonspecific. These findings are stable when com pared to the prior examination. The patient is imaged in a lordotic position. IMPRESSION: Cardiac silhouette is enlarged and there is increased density in the perihilar regions an d right lung base which may signify volume loss, vascular congestion, pulmonary edema, and/or infectious pneumonitis. PA/lateral imaging the chest or CT may be beneficial for further assessment.
[2020-04-21] MEDS ORDERED: Nystatin Powder 15 GM BOT TOP PRN (10:09)
[2020-04-21] MEDS: Morphine 2 MG/ML VIAL SLOW IVP PRN (13:26)
--- NOTE | 2020-04-21 13:47 | RAD ---
EXAM: Two views chest PROVIDED CLINICAL HISTORY: Follow-up evaluation. COMPARISON: 04/21/2020 at 0930 hours. FINDINGS: This examination is obtained in a better depth of inspiration. Cardiac silhouette is mildly enlarged. Mild elevation right hemidiaphragm is present. There are scattered areas of subsegmental atelectasis seen in the left midlung zone, right lung base, and right upper lung zone. No consolidati on or pleural fluid is appreciated. No other interval change. IMPRESSION: Improved depth of inspiration. Scattered areas of subsegmental atelectasis are seen in the lungs bila terally..
--- NOTE | 2020-04-21 13:55 | ULT ---
Focused ultrasound of the left lower extremity: 04/21/2020 COMPARISON: None HISTORY: Swelling and edema of the left lower extremity TECHNIQUE: Multiplanar grayscale sonographic imaging of the left lower extremity anteriorly in the ar ea of palpable concern obtained FINDINGS: Provided images of the left lower extremity in the area of clinical concern demonstrates a superficial nonspecific fluid collection just deep to the skin surface which appears to be located beneath the skin and superficial to the subcutaneous adipose layer. This nonspecific fluid collection measures approximately 3.9 x 3.8 cm in craniocaudal and transverse dimension and approximately 3 mm in depth IMPRESSION: Fluid collection just deep to the skin surface in the area of palpable concern, nonspecif ic. This could represent a infected fluid collection in the proper clinical setting.
[2020-04-21] MEDS: hydrOXYzine 25 MG TAB PO PRN (13:57)
[2020-04-21] MEDS ORDERED: HYDROcodone/Acetaminophen 5/325 mg Tablet PO SCH (14:23)
[2020-04-21 18:46] LABS: Creatinine, Urine 113.14 mg/dL (63-166)
[2020-04-21 19:54] LABS: Vancomycin, Trough 22.9 ug/mL
[2020-04-21] MEDS: Transdermal Patch Removal TOP SCH (21:44)
[2020-04-22 06:16] LABS: ALT (SGPT) 12 U/L (8-55); AST (SGOT) 37 U/L (5-34); Albumin 2.1 g/dL (3.5-5.0); Alkaline Phosphatase 107 U/L (40-110); Anion Gap 9 mmol/L (10-20); BUN (Urea Nitrogen) 9 mg/dL (8.9-20.6); Calc. Creatinine Clearance 333 mL/min (70-130); Calcium 7.9 mg/dL (7.8-10.44); Carbon Dioxide 36 mmol/L (22-29); Chloride 94 mmol/L (98-107); Globulin 6.6 g/dL (2.4-3.5); Glucose 113 mg/dL (70-105); Potassium 3.9 mmol/L (3.5-5.1); Protein, Total 8.7 g/dL (6.0-8.3); Sodium 135 mmol/L (136-145)
--- NOTE | 2020-04-22 06:18 | PDOC.FM ---
- Subjective Subjective: Patient resting in bed this morning. On 2L NC. Sitting up more in bed. Has no new complaints. CXR yesterday showed atelectasis. LLE sono showed very superficial infected fluid collection - Objective MAR Reviewed: Yes Vital Signs & Weight: Vital Signs (12 hours) Temp Pulse Resp BP Pulse Ox 04/22/20 04:20 98.8 F 90 18 148/67 H 92 L 04/22/20 00:10 98.8 F 88 18 139/66 92 L 04/21/20 21:14 98.5 F 89 18 138/67 92 L 04/21/20 20:25 92 L Weight Weight 245 kg I&O: 04/20/20 04/21/20 04/22/20 06:59 06:59 06:59 Intake Total 3011 2510 2740 Output Total 1750 8055 3100 Balance 7687 -532 -547 Result Diagrams: 04/22/20 05:38 04/22/20 05:38 Phys Exam - Physical Examination Constitutional: NAD 2L NC Neck: supple, full ROM Respiratory: no wheezing, no rhonchi hard to appreciate given body habitus Cardiovascular: RRR, no significant murmur Gastrointestinal: positive bowel sounds diffusely TTP likely 2/2 cellulitis Neurological: non-focal, moves all 4 limbs Psychiatric: A&O x 3 Deviation from normal: redness on pannus, TTP. petichae on abdomen -: impressive swelling of scrotum. LLE TTP, red, warm Dx/Plan - Plan Plan: AHRF likely 2/2 Obesity hypoventilation syndrome - Per clinic records, patient was supposed to follow up with pulmonology. Likely also some component of COPD given smoking hx although not formally diagnosed. Likely also has undiagnosed PAIGE that may be contributing - PRN NC O2, wean O2 as tolerated - Home inhaler, Dulera - incentive spirometer - Duonebs PRN -CXR showed atelectasis Sepsis 2/2 cellulitis - Patient was seen in hospital 02/2020 for severe LLE cellulitis. Was on IV abx inpatient and transitioned to Kefflex X 1 month then Penicillin VK X 6 months - Areas concerning for infection on LLE and over lower abdomen/pannus - Tachycardia to 100s, tachypneic to upper 20s in ED - Started on IV Clindamycin in ED, will continue and add Vanc, increased Clinda (04/20) to 900mg TID--> d/c Clinda on 04/21 and continue just on Vanc - Consider deescalation to PO abx with resolving sx - XR LLE: no osteo, suggestive of cellulitis -Sono LLE showed very superficial infected fluid collection 3.9x3.8cm; no need for surgery consult given its size and location Macrocytic Anemia -Folate, B12 WNL -denies alcohol use, TSH WNL -peripheral smear showed macrocytic anemia with differential including liver pathology and myelodysplastic syndrome Thrombocytopenia -aware -patient developed petechiae overnight -will continue to monitor. May be 2/2 Vancomycin Abdominal Pain - Constipation vs cellulitis - KUB shows nonspecific gas patterns - Bowel regimen with goal of 1-2 soft BM QD BLE edema, scrotal edema - On PO Lasix at home for edema, will hold - IV increased to 60mg Lasix BID -strict I/Os -Urology to place sawyer as nursing was unable to place 2/2 body habitus and swelling -testicular U/s showed echogenic focus in L upper testicular pole , follow up advised. Spoke with radiology and they think it may just be an engorged vessel in setting of swelling. Recommend follow up ultrasound when euvolemic -BNP WNL -Echo 02/2020 WNL -Urine pr/Cr .2g/day -consider RUQ ultrasound to see if patient has GLEASON/cirrhosis that could be co ntributing to edema -fluid restricted to 2000mL/day HTN - Home amlodipine Hematuria -urology consulted -patient will likely need to follow up outpatient to rule out bladder cancer given smoking history-40+pack years DVT PPX: 60 Lovenox GI PPx: none Diet: NPO pending possible surgery consult for drainage of abscess of LLE Code: Full PCP: SPENCER Weaver Dispo: Admit medical inpatient. Patient still on O2. Goal to diurese, weane O2 at able. PT/OT/CM for dispo planning. Continue with IS. Dietary consult. Pending approval from [facility] for 8 [facility] visits for Addendum - Attending - Attending Attestation Date/Time: 04/22/20 1153 I personally evaluated the patient and discussed the management with the team. I agree with the History, Examination, Assessment and Plan documented above with any addition or exceptions noted below. No drainable collection on my read and the patient is improving. continue diuresis and antibiotics. Hopeful transition to PO tomorrow.
[2020-04-22 07:55] LABS: Band 1 % (5-11); Eosinophils 3 % (0-10); Hemoglobin 12.3 g/dL (14.0-18.0); Lymphocytes 19 % (21-51); MDiff Complete? YES; Macrocytosis MODERATE=16-30 cells (100X) (0-5/hpf); Mean Corpuscular HGB CONC 32.1 g/dL (32.0-36.0); Mean Corpuscular Hemoglobin 35.5 pg (27.0-31.0); Mean Platelet Volume 6.7 fL (7.4-10.4); Monocytes 10 % (0-10); Neutrophil 66 % (42-75); Platelet Count 116 thou/uL (130-400); Platelet Morphology Comment Appears Decreased; RBC Distribution Width 12.7 % (11.5-14.5); Red Blood Cell (RBC) Count 3.47 mill/uL (4.70-6.10); White Blood Cell (WBC) Count 7.9 thou/uL (4.8-10.8)
[2020-04-22] MEDS: Mometasone 200 MCG/Formoterol 5 MCG 120 PUFF INHALER INH SCH ×2 (08:14→18:44)
[2020-04-22] MEDS: Aspirin 81 mg Enteric Coated Tablet PO SCH (09:04)
[2020-04-22] MEDS: Potassium Chloride 10 MEQ TAB PO SCH (09:04)
[2020-04-22] MEDS: Amlodipine 5 MG TAB PO SCH (09:04)
[2020-04-22] MEDS: Lactinex Tablet PO SCH (09:05)
[2020-04-22] MEDS: Sucralfate 1 GM/10 ML UDCUP PO SCH ×4 (09:11→20:07)
[2020-04-22] MEDS: Lidocaine 5% Patch TD SCH ×2 (09:11→09:33)
[2020-04-22] MEDS: Vancomycin HCl 1.25 GM in Sodium Chloride 0.9% 250 ML 250 ML IVPB SCH ×2 (09:12→20:26)
[2020-04-22] MEDS: Multivit, Therapeutic 1 TAB PO SCH (09:12)
[2020-04-22] MEDS: Furosemide 40 MG/4 ML VIAL SLOW IVP SCH ×3 (09:12→20:06)
[2020-04-22] MEDS: Polyethylene Glycol 3350 17 GM Packet PO SCH (09:32)
[2020-04-22] MEDS: Gabapentin 300 MG CAP PO PRN (09:56)
[2020-04-22] MEDS: Enoxaparin Sodium 80 MG/0.8 ML SYRINGE SC SCH (11:40)
[2020-04-22] MEDS: hydrOXYzine 25 MG TAB PO PRN (17:22)
[2020-04-22] MEDS: Acetaminophen 325 MG TAB PO PRN (18:34)
[2020-04-22] MEDS: Transdermal Patch Removal TOP SCH (20:07)
[2020-04-23 05:51] LABS: Anion Gap 10 mmol/L (10-20); BUN (Urea Nitrogen) 8 mg/dL (8.9-20.6); Calc. Creatinine Clearance 330 mL/min (70-130); Carbon Dioxide 35 mmol/L (22-29); Chloride 92 mmol/L (98-107); Glucose 136 mg/dL (70-105); Potassium 3.5 mmol/L (3.5-5.1); Sodium 133 mmol/L (136-145)
[2020-04-23 05:52] LABS: ALT (SGPT) 12 U/L (8-55); AST (SGOT) 36 U/L (5-34); Albumin 2.1 g/dL (3.5-5.0); Alkaline Phosphatase 102 U/L (40-110); Bilirubin, Total 0.9 mg/dL (0.2-1.2); Calcium 7.9 mg/dL (7.8-10.44); Globulin 6.6 g/dL (2.4-3.5); Protein, Total 8.7 g/dL (6.0-8.3)
--- NOTE | 2020-04-23 06:17 | PDOC.FM ---
- Subjective Subjective: Patient is discouraged. No new complaints. He feels as if he is not getting better - Objective MAR Reviewed: Yes Vital Signs & Weight: Vital Signs (12 hours) Temp Pulse Resp BP Pulse Ox 04/23/20 03:17 98.3 F 77 16 132/75 91 L 04/22/20 23:20 98.8 F 95 16 121/73 93 L 04/22/20 20:05 98.6 F 82 14 156/77 H 92 L 04/22/20 18:44 90 20 Weight Weight 245 kg I&O: 04/21/20 04/22/20 04/23/20 06:59 06:59 06:59 Intake Total 2510 2740 1800 Output Total 2755 3100 3400 Balance -245 -360 -1600 Result Diagrams: 04/23/20 05:08 04/23/20 05:08 Phys Exam - Physical Examination Constitutional: NAD HEENT: moist MMs Neck: supple Respiratory: no wheezing, no rales Cardiovascular: RRR, no significant murmur Gastrointestinal: soft diffusely TTP around redness 1+ pitting edema b/l Neurological: moves all 4 limbs Psychiatric: normal affect Deviation from normal: redness of pannus improved. tender, red, warm LLE -: scrotal swelling slightly improved Dx/Plan - Plan Plan: AHRF likely 2/2 Obesity hypoventilation syndrome - Per clinic records, patient was supposed to follow up with pulmonology. Likely also some component of COPD given smoking hx although not formally diagnosed. Likely also has undiagnosed PAIGE that may be contributing - PRN NC O2, wean O2 as tolerated - Home inhaler, Dulera - incentive spirometer - Duonebs PRN -CXR showed atelectasis Sepsis 2/2 cellulitis - Patient was seen in hospital 02/2020 for severe LLE cellulitis. Was on IV abx inpatient and transitioned to Kefflex X 1 month then Penicillin VK X 6 months - Areas concerning for infection on LLE and over lower abdomen/pannus - Tachycardia to 100s, tachypneic to upper 20s in ED - Started on IV Clindamycin in ED, will continue and add Vanc, increased Clinda (04/20) to 900mg TID--> d/c Clinda on 04/21 and continue just on Vanc - Consider deescalation to PO abx with resolving sx - XR LLE: no osteo, suggestive of cellulitis -Sono LLE showed very superficial infected fluid collection 3.9x3.8cm; no need for surgery consult given its size and location Macrocytic Anemia -Folate, B12 WNL -denies alcohol use, TSH WNL -peripheral smear showed macrocytic anemia with differential including liver pathology and myelodysplastic syndrome Thrombocytopenia -aware -patient developed petechiae overnight -will continue to monitor. May be 2/2 Vancomycin Abdominal Pain - Constipation vs cellulitis - KUB shows nonspecific gas patterns - Bowel regimen with goal of 1-2 soft BM QD -RUQ sono pending. Patient with mildly elevated AST BLE edema, scrotal edema - On PO Lasix at home for edema, will hold - IV increased to 60mg Lasix q6H -strict I/Os -Urology to place sawyer as nursing was unable to place 2/2 body habitus and swelling -testicular U/s showed echogenic focus in L upper testicular pole , follow up advised. Spoke with radiology and they think it may just be an engorged vessel in setting of swelling. Recommend follow up ultrasound when euvolemic -BNP WNL -Echo 02/2020 WNL -Urine pr/Cr .2g/day -consider RUQ ultrasound to see if patient has GLEASON/cirrhosis that could be contributing to edema -fluid restricted to 2000mL/day HTN - Home amlodipine Hematuria -urology consulted -patient will likely need to follow up outpatient to rule out bladder cancer given smoking history-40+pack years DVT PPX: 60 Lovenox GI PPx: none Diet: NPO pending RUQ sono Code: Full PCP: SPENCER Weaver Dispo: Admit medical inpatient. Patient still on O2. Goal to diurese, weane O2 at able. PT/OT/CM for dispo planning. Continue with IS. Dietary consult. Pending approval from [facility] for 8 [facility] visits for HH. Swelling is improved and slight improvement of redness of affected areas Addendum - Attending - Attending Attestation Date/Time: 04/23/20 7397 I personally evaluated the patient and discussed the management with Dr. Schwarz. I agree with the History, Examination, Assessment and Plan documented above with any addition or exceptions noted below. I feel the erythema is slowly improving. He is not nearly as tender. I believe he has a large component of hypervolemia and we will need to continue diuresis.
[2020-04-23] MEDS: Amlodipine 5 MG TAB PO SCH (08:03)
[2020-04-23] MEDS: Lactinex Tablet PO SCH (08:03)
[2020-04-23] MEDS: Sucralfate 1 GM/10 ML UDCUP PO SCH ×4 (08:03→21:05)
[2020-04-23] MEDS: Potassium Chloride 10 MEQ TAB PO SCH (08:06)
[2020-04-23] MEDS: Multivit, Therapeutic 1 TAB PO SCH (08:06)
[2020-04-23] MEDS: Polyethylene Glycol 3350 17 GM Packet PO SCH (08:06)
[2020-04-23] MEDS: Furosemide 40 MG/4 ML VIAL SLOW IVP SCH ×3 (08:06→21:05)
[2020-04-23] MEDS: Aspirin 81 mg Enteric Coated Tablet PO SCH (08:06)
[2020-04-23 09:07] LABS: Hemoglobin 11.7 g/dL (14.0-18.0); Mean Corpuscular HGB CONC 31.9 g/dL (32.0-36.0); Mean Corpuscular Hemoglobin 34.9 pg (27.0-31.0); Mean Platelet Volume 6.7 fL (7.4-10.4); Platelet Count 110 thou/uL (130-400); RBC Distribution Width 12.8 % (11.5-14.5); Red Blood Cell (RBC) Count 3.34 mill/uL (4.70-6.10); White Blood Cell (WBC) Count 8.1 thou/uL (4.8-10.8)
[2020-04-23] MEDS: Vancomycin HCl 1.25 GM in Sodium Chloride 0.9% 250 ML 250 ML IVPB SCH ×2 (09:28→21:08)
[2020-04-23] MEDS: Lidocaine 5% Patch TD SCH (09:31)
[2020-04-23] MEDS: Enoxaparin Sodium 80 MG/0.8 ML SYRINGE SC SCH (09:31)
[2020-04-23 09:51] LABS: Band 4 % (5-11); Eosinophils 2 % (0-10); Lymphocytes 20 % (21-51); MDiff Complete? YES; Macrocytosis SLIGHT = 6-15 cells (100X) (0-5/hpf); Monocytes 9 % (0-10); Neutrophil 63 % (42-75); Platelet Morphology Comment Appears Decreased; Polychromasia SLIGHT = 2-3 cells (100X) (0-2/hpf)
[2020-04-23] MEDS: Mometasone 200 MCG/Formoterol 5 MCG 120 PUFF INHALER INH SCH ×2 (09:52→22:20)
[2020-04-23] MEDS: Acetaminophen 325 MG TAB PO PRN (10:48)
[2020-04-23] MEDS: Gabapentin 300 MG CAP PO PRN (10:51)
[2020-04-23] MEDS ORDERED: valACYclovir 500 MG TAB PO SCH (15:45)
--- NOTE | 2020-04-23 16:12 | ULT ---
Right upper quadrant ultrasound: 04/23/2020 COMPARISON: None HISTORY: Garcia versus cirrhosis TECHNIQUE: Multiplanar grayscale sonographic imaging of the right upper quadrant provided. FINDINGS: Evaluation is limited secondary to bowel gas. The pancreas is obscured. There is significant free fluid in the right upper quadrant. There is nonspecific gallbladder wall th ickening. No discrete gallstones are noted. Evaluation of the gallbladder is limited technically. The liver cannot be well evaluated on this examination secondary to body habitus and ascites. Partial ly visualized hepatic parenchyma is heterogeneous and echogenic, consistent with nonspecific hepatocellular disease. The right kidney is vaguely visualized and demonstrates no obvious hydronephrosis. Some of the provid ed images suggest that the kidney is abnormally elongated with a craniocaudal measurement of up to 19 cm. This could be artifactual in nature given the limited nature of this exam. Partially imaged ho rseshoe kidney cannot be excluded. IMPRESSION: Markedly limited examination demonstrating abnormal echogenicity of the hepatic parenchym a and significant right upper quadrant ascites. Nonspecific gallbladder wall thickening without discrete gallstones. Findings may be related to hepatocellular disease. Suboptimal assessment of the right kidney as detailed above. Recommend further assessment with CT
[2020-04-23 19:26] LABS: INR-International Normal Ratio 1.3; PTT 33.5 sec (22.9-36.1); Prothrombin Time 16.3 sec (12.0-14.7)
[2020-04-23] MEDS: valACYclovir 500 MG TAB PO SCH (21:05)
[2020-04-23] MEDS: Transdermal Patch Removal TOP SCH (21:06)
[2020-04-23 21:52] LABS: Vancomycin, Trough 16.6 ug/mL
[2020-04-23 22:08] LABS: Hep C IgG Ab Non-Reactive (NonReactive); Hep C Index 0.27 S/CO (0-0.79)
[2020-04-24] MEDS: Gabapentin 300 MG CAP PO PRN ×2 (00:59→12:32)
[2020-04-24] MEDS: Acetaminophen 325 MG TAB PO PRN ×3 (01:00→18:20)
--- NOTE | 2020-04-24 05:25 | PDOC.FM ---
- Subjective Subjective: Patient states he is a little more SOB. Now on 4L NC satting well. Denies any complaints, no CP, no new abdominal pain. Mild improvement of pain in leg and scrotum. Diueresing well - Objective MAR Reviewed: Yes Vital Signs & Weight: Vital Signs (12 hours) Temp Pulse Resp BP Pulse Ox 04/24/20 03:19 98.0 F 70 18 124/69 94 L 04/23/20 23:29 98.6 F 83 18 143/73 H 93 L 04/23/20 20:40 98.6 F 77 18 154/84 H 91 L 04/23/20 20:00 91 L Weight Weight 245 kg I&O: 04/22/20 04/23/20 04/24/20 06:59 06:59 06:59 Intake Total 2740 1800 Output Total 3100 3400 1350 Balance -360 -1600 -1350 Result Diagrams: 04/24/20 05:29 04/24/20 05:29 Phys Exam - Physical Examination Constitutional: NAD on 4L NC HEENT: moist MMs Neck: supple Respiratory: no wheezing, clear to auscultation bilateral Cardiovascular: RRR, no significant murmur Gastrointestinal: soft mildly TTP especially along pannus edema b/l LE Neurological: moves all 4 limbs Psychiatric: A&O x 3 Deviation from normal: shingles rash on right LE. scrotal swelling -: petichae present on abdomen. improved redness, warmth, tenderness. Dx/Plan - Plan Plan: AHRF likely 2/2 Obesity hypoventilation syndrome - Per clinic records, patient was supposed to follow up with pulmonology. Likely also some component of COPD given smoking hx although not formally diagnosed. Likely also has undiagnosed PAIGE that may be contributing - PRN NC O2, wean O2 as tolerated - Home inhaler, Dulera - incentive spirometer - Duonebs PRN -CXR showed atelectasis -repeat CXR today given increase O2 requirement Sepsis 2/2 cellulitis - Patient was seen in hospital 02/2020 for severe LLE cellulitis. Was on IV abx inpatient and transitioned to Kefflex X 1 month then Penicillin VK X 6 months - Areas concerning for infection on LLE and over lower abdomen/pannus - Tachycardia to 100s, tachypneic to upper 20s in ED - Started on IV Clindamycin in ED, will continue and add Vanc, increased Clinda (04/20) to 900mg TID--> d/c Clinda on 04/21 and continue just on Vanc - Consider deescalation to PO abx with resolving sx - XR LLE: no osteo, suggestive of cellulitis - Sono LLE showed very superficial infected fluid collection 3.9x3.8cm; no need for surgery consult given its size and location Macrocytic Anemia -Folate, B12 WNL -denies alcohol use, TSH WNL -peripheral smear showed macrocytic anemia with differential including liver pathology and myelodysplastic syndrome Thrombocytopenia -aware -patient developed petechiae overnight -will continue to monitor. May be 2/2 Vancomycin Abdominal Pain - Constipation vs cellulitis - KUB shows nonspecific gas patterns - Bowel regimen with goal of 1-2 soft BM QD -RUQ sono showing ascites, likely hepatocellular disease. recommend CT given limited exam 2/2 body habitus. gallbladder thickening without gallstones -Hep C negative BLE edema, scrotal edema - On PO Lasix at home for edema, will hold - IV increased to 60mg Lasix q8H-> transition to q6H 04/24 -strict I/Os -Urology to place sawyer as nursing was unable to place 2/2 body habitus and swelling -testicular U/s showed echogenic focus in L upper testicular pole , follow up advised. Spoke with radiology and they think it may just be an engorged vessel in setting of swelling. Recommend follow up ultrasound when euvolemic -BNP WNL -Echo 02/2020 WNL -Urine pr/Cr .2g/day -RUQ sono showed likely hepatocellular carcinoma and ascites, gallbladder thickening without gallstones -fluid restricted to 2000mL/day HTN - Home amlodipine Hematuria -urology consulted -patient will likely need to follow up outpatient to rule out bladder cancer given smoking history-40+pack years Hypokalemia -aware, replace as indicated DVT PPX: 60 Lovenox GI PPx: none Diet: HH, fluid restricted 2000mL/day Code: Full PCP: SPENCER Weaver Dispo: Admit medical inpatient. Patient still on O2. Goal to diurese, weane O2 at able. PT/OT/CM for dispo planning. Continue with IS. [facility] for [facility]. Swelling is improved and slight improvement of redness of affected areas. Continue with current plan. Palliative consult Addendum - Attending - Attending Attestation Date/Time: 04/24/20 0801 I personally evaluated the patient and discussed the management with the team. I agree with the History, Examination, Assessment and Plan documented above with any addition or exceptions noted below. May consult for assistance with diuresis. His infection continues to improve.
[2020-04-24] MEDS: Furosemide 40 MG/4 ML VIAL SLOW IVP SCH ×3 (05:45→18:10)
[2020-04-24 06:02] LABS: Band 4 % (5-11); Eosinophils 2 % (0-10); Hemoglobin 12.3 g/dL (14.0-18.0); Hypochromia SLIGHT = 6-15 cells (100X) (0-5/hpf); Lymphocytes 10 % (21-51); MDiff Complete? YES; Macrocytosis SLIGHT = 6-15 cells (100X) (0-5/hpf); Mean Corpuscular HGB CONC 30.3 g/dL (32.0-36.0); Mean Corpuscular Hemoglobin 33.2 pg (27.0-31.0); Monocytes 17 % (0-10); Neutrophil 66 % (42-75); Platelet Count 112 thou/uL (130-400); Platelet Morphology Comment Appears Decreased; RBC Distribution Width 12.7 % (11.5-14.5); Reactive Lymphocytes 1 % (0-10); White Blood Cell (WBC) Count 8.2 thou/uL (4.8-10.8)
[2020-04-24 06:24] LABS: ALT (SGPT) 15 U/L (8-55); AST (SGOT) 44 U/L (5-34); Albumin 2.2 g/dL (3.5-5.0); Alkaline Phosphatase 109 U/L (40-110); Anion Gap 10 mmol/L (10-20); BUN (Urea Nitrogen) 8 mg/dL (8.9-20.6); Calc. Creatinine Clearance 351 mL/min (70-130); Calcium 7.9 mg/dL (7.8-10.44); Carbon Dioxide 35 mmol/L (22-29); Chloride 91 mmol/L (98-107); Globulin 6.9 g/dL (2.4-3.5); Glucose 113 mg/dL (70-105); Potassium 3.3 mmol/L (3.5-5.1); Protein, Total 9.1 g/dL (6.0-8.3); Sodium 133 mmol/L (136-145)
[2020-04-24] MEDS: Mometasone 200 MCG/Formoterol 5 MCG 120 PUFF INHALER INH SCH ×2 (07:23→21:09)
[2020-04-24] MEDS: Enoxaparin Sodium 80 MG/0.8 ML SYRINGE SC SCH (08:00)
[2020-04-24] MEDS: Multivit, Therapeutic 1 TAB PO SCH (08:00)
[2020-04-24] MEDS: Amlodipine 5 MG TAB PO SCH (08:01)
[2020-04-24] MEDS: Lactinex Tablet PO SCH (08:02)
[2020-04-24] MEDS: Sucralfate 1 GM/10 ML UDCUP PO SCH ×4 (08:02→20:56)
[2020-04-24] MEDS: Aspirin 81 mg Enteric Coated Tablet PO SCH (08:02)
[2020-04-24] MEDS: Polyethylene Glycol 3350 17 GM Packet PO SCH (08:02)
[2020-04-24] MEDS: Potassium Chloride 10 MEQ TAB PO SCH (08:02)
--- NOTE | 2020-04-24 09:07 | RAD ---
2 views chest: 04/24/2020 COMPARISON: 04/21/2020 HISTORY: Increased oxygen requirement FINDINGS: There is an obliquely oriented linear area of increased density in the mid left lung zone e xtending from the left hilar region of the lateral aspect of the left hemithorax, not significantly changed. Similar linear areas of increased density are noted in the right perihilar region of the rig ht lung base, grossly unchanged as well. IMPRESSION: Stable nonspecific linear areas of increased density noted in the mid left lung zone and the right lung base. Findings may signify multifocal volume loss, scar, and or infectious pneumonitis.
[2020-04-24] MEDS ORDERED: Potassium Chloride 20 MEQ in Premix Bag 1 BAG IVPB SCH (09:45)
[2020-04-24] MEDS: Lidocaine 5% Patch TD SCH (09:46)
[2020-04-24] MEDS: valACYclovir 500 MG TAB PO SCH ×3 (09:46→20:56)
[2020-04-24] MEDS: Vancomycin HCl 1.25 GM in Sodium Chloride 0.9% 250 ML 250 ML IVPB SCH ×2 (10:55→20:56)
[2020-04-24] MEDS ORDERED: Potassium Bicarbonate/Cit Ac 20 MEQ TAB PO SCH (12:00)
--- NOTE | 2020-04-24 17:31 | PDOC.BPN ---
- Brief Progress Note Transition of Care Note Patient is a 44 yo M who presented with SOB. He was diagnosed with AHRF likely 2/2 some component of obesity hypoventilation, volume overload, and COPD. Per clinic records, patient was supposed to follow up with pulmonology. Likely also some component of COPD given smoking hx although not formally diagnosed. Likely also has undiagnosed PAIGE that may be contributing to this clinical picture. He was continued on his home inhaler, Dulera, and Duonebs PRN. CXR showed atelectasis and remains on 2-4L of O2; his baseline is RA. He was also found to have sepsis 2/2 cellulitis. Patient was seen in hospital 02/2020 for severe LLE cellulitis. Was on IV abx inpatient and transitioned to Kefflex X 1 month then Penicillin VK X 6 months. Areas concerning for infection on LLE and over lower abdomen/pannus. Started on IV Clindamycin in ED, initially continued and added Vanc, increased Clinda (04/20) to 900mg TID then d/c Clinda on 04/21 and continued just on Vanc. Will deescalate to PO abx with resolving sx. For patient's BLE edema, scrotal edema we are diuresing patient 40mg Lasix q6H and fluid restrict ing to 2000mL/day. He was incidentally found to have Shingles and is being treated with Valacyclovir. Patient needs to work with PT/OT. We have spoken to him at length about having to make lifestyle changes given his current state and multiple comorbid conditions. He needs to work with PT and get up out of bed to help improve his atelectasis and prevent DVT, etc.
[2020-04-24] MEDS: Transdermal Patch Removal TOP SCH (20:57)
[2020-04-24] MEDS: Enoxaparin Sodium 60 MG/0.6 ML SYRINGE SC SCH (20:57)
[2020-04-24] MEDS ORDERED: Enoxaparin Sodium 80 MG/0.8 ML SYRINGE SC SCH (21:00)
[2020-04-25] MEDS: Furosemide 40 MG/4 ML VIAL SLOW IVP SCH ×2 (00:01→06:10)
[2020-04-25] MEDS: Acetaminophen 325 MG TAB PO PRN ×2 (00:01→20:30)
[2020-04-25] MEDS: Gabapentin 300 MG CAP PO PRN ×2 (00:02→20:29)
--- NOTE | 2020-04-25 06:15 | PDOC.FM ---
- Subjective Subjective: Patient expressed concern about his night time breathing. Reports multiple episodes of waking up gasping for air. Reports that he is at his baseline breathing during the day. Reports continued pain throughout his BLE, scrotum, and lower abdomen. Reports that he does not notice an improvement in his swelling. - Objective MAR Reviewed: Yes Vital Signs & Weight: Vital Signs (12 hours) Temp Pulse Resp BP Pulse Ox 04/25/20 03:22 98 F 75 16 133/74 94 L 04/25/20 00:14 98.2 F 71 14 134/73 96 04/24/20 20:10 93 L 04/24/20 19:02 98.3 F 76 14 137/76 93 L Weight Weight 245 kg I&O: 04/23/20 04/24/20 04/25/20 06:59 06:59 06:59 Intake Total 1800 Output Total 3400 1350 350 Balance -1600 -1350 -350 Result Diagrams: 04/25/20 05:52 04/25/20 05:52 Phys Exam - Physical Examination Constitutional: NAD HEENT: moist MMs Neck: supple Respiratory: no wheezing, no rales Cardiovascular: RRR Gastrointestinal: soft mildly TTP especially along pannus, improved erythema marked edema of BLE, scrotum, abdomen Neurological: moves all 4 limbs Psychiatric: A&O x 3 -: petichae present on abdomen Dx/Plan - Plan Plan: AHRF likely 2/2 Obesity hypoventilation syndrome - Per clinic records, patient was supposed to follow up with pulmonology. Likely also some component of COPD given smoking hx although not formally diagnosed. Likely also has undiagnosed PAIGE that may be contributing - PRN NC O2, wean O2 as tolerated - Home inhaler, Dulera - incentive spirometer - Duonebs PRN -CXR showed atelectasis - CM consulted for cpap - required 4.5-5 L overnight Sepsis 2/2 cellulitis - Patient was seen in hospital 02/2020 for severe LLE cellulitis. Was on IV abx inpatient and transitioned to Kefflex X 1 month then Penicillin VK X 6 months - Areas concerning for infection on LLE and over lower abdomen/pannus, infection appears to be improving - Tachycardia to 100s, tachypneic to upper 20s in ED; tachycardia resolved - Started on IV Clindamycin in ED, will continue and add Vanc, increased Clinda (04/20) to 900mg TID--> d/c Clinda on 04/21 and continue just on Vanc --> will transition to Bactrim DS BID - XR LLE: no osteo, suggestive of cellulitis - Sono LLE showed very superficial infected fluid collection 3.9x3.8cm; no need for surgery consult given its size and location Macrocytic Anemia -Folate, B12 WNL -denies alcohol use, TSH WNL -peripheral smear showed macrocytic anemia with differential including liver pathology and myelodysplastic syndrome Thrombocytopenia -aware -patient developed petechiae -will continue to monitor. May be 2/2 Vancomycin vs. liver pathology Abdominal Pain - Constipation vs cellulitis - KUB shows nonspecific gas patterns - Bowel regimen with goal of 1-2 soft BM QD -RUQ sono showing ascites, likely hepatocellular disease. recommend CT given limited exam 2/2 body habitus. gallbladder thickening without gallstones -Hep C negative BLE edema, scrotal edema - On PO Lasix at home for edema, will hold - IV increased to 60mg Lasix q8H-> transition to q6H 04/24 > increase to 80 mg q6 - will consult nephrology for help with diuresis - will add acetazolamide -strict I/Os -Urology to place sawyer as nursing was unable to place 2/2 body habitus and swelling -testicular U/s showed echogenic focus in L upper testicular pole , follow up advised. Spoke with radiology and they think it may just be an engorged vessel in setting of swelling. Recommend follow up ultrasound when euvolemic -BNP WNL -Echo 02/2020 WNL -Urine pr/Cr .2g/day -RUQ sono showed likely hepatocellular carcinoma and ascites, gallbladder thickening without gallstones -fluid restricted to 2000mL/day HTN - Home amlodipine Hematuria -urology consulted, outpatient f/u recommended Hypokalemia -aware, replace as indicated Addendum - Attending - Attending Attestation Date/Time: 04/25/20 1231 I personally evaluated the patient and discussed the management with Dr. Cadet. I agree with the History, Examination, Assessment and Plan documented above with any addition or exceptions noted below. Infection continue to improve. Will d/w renal as difficulty with adequate diuresis and I suspect extra PO intake.
[2020-04-25] MEDS: Mometasone 200 MCG/Formoterol 5 MCG 120 PUFF INHALER INH SCH ×2 (06:44→22:30)
[2020-04-25 07:07] LABS: ALT (SGPT) 17 U/L (8-55); AST (SGOT) 44 U/L (5-34); Albumin 2.1 g/dL (3.5-5.0); Alkaline Phosphatase 117 U/L (40-110); BUN (Urea Nitrogen) 8 mg/dL (8.9-20.6); Bilirubin, Total 1.1 mg/dL (0.2-1.2); Calc. Creatinine Clearance 337 mL/min (70-130); Globulin 6.7 g/dL (2.4-3.5); Glucose 108 mg/dL (70-105); Protein, Total 8.8 g/dL (6.0-8.3)
[2020-04-25 07:09] LABS: Band 1 % (5-11); Eosinophils 7 % (0-10); Hemoglobin 11.8 g/dL (14.0-18.0); Lymphocytes 18 % (21-51); MDiff Complete? YES; Mean Corpuscular HGB CONC 31.8 g/dL (32.0-36.0); Mean Corpuscular Hemoglobin 34.7 pg (27.0-31.0); Mean Platelet Volume 6.7 fL (7.4-10.4); Monocytes 7 % (0-10); Neutrophil 67 % (42-75); Platelet Count 113 thou/uL (130-400); Platelet Morphology Comment Appears Decreased; RBC Distribution Width 12.6 % (11.5-14.5); Red Blood Cell (RBC) Count 3.41 mill/uL (4.70-6.10)
[2020-04-25 07:17] LABS: Anion Gap 12 mmol/L (10-20); Carbon Dioxide 37 mmol/L (22-29); Chloride 91 mmol/L (98-107); Potassium 3.2 mmol/L (3.5-5.1); Sodium 137 mmol/L (136-145)
[2020-04-25] MEDS ORDERED: Potassium Chloride 20 MEQ in Premix Bag 1 BAG IVPB SCH (08:30)
[2020-04-25] MEDS: Potassium Bicarbonate/Cit Ac 20 MEQ TAB PO SCH (09:58)
[2020-04-25] MEDS: Lactinex Tablet PO SCH (09:59)
[2020-04-25] MEDS: Sucralfate 1 GM/10 ML UDCUP PO SCH ×4 (09:59→20:30)
[2020-04-25] MEDS: valACYclovir 500 MG TAB PO SCH ×3 (09:59→20:31)
[2020-04-25] MEDS: Enoxaparin Sodium 60 MG/0.6 ML SYRINGE SC SCH ×2 (10:00→20:31)
[2020-04-25] MEDS: Potassium Chloride 10 MEQ TAB PO SCH (10:00)
[2020-04-25] MEDS: Aspirin 81 mg Enteric Coated Tablet PO SCH (10:00)
[2020-04-25] MEDS: Multivit, Therapeutic 1 TAB PO SCH (10:00)
[2020-04-25] MEDS: Polyethylene Glycol 3350 17 GM Packet PO SCH (10:00)
[2020-04-25] MEDS: Amlodipine 5 MG TAB PO SCH (10:00)
[2020-04-25] MEDS: Lidocaine 5% Patch TD SCH (10:01)
[2020-04-25] MEDS ORDERED: Sulfameth/Trimethoprim DS 800-160mg TAB PO SCH ×2 (11:43→12:30)
[2020-04-25] MEDS ORDERED: Furosemide 40 MG/4 ML VIAL SLOW IVP SCH (11:45)
[2020-04-25] MEDS: Vancomycin HCl 1.25 GM in Sodium Chloride 0.9% 250 ML 250 ML IVPB SCH (11:55)
[2020-04-25] MEDS: Furosemide 100 MG/10 ML VIAL SLOW IVP SCH ×3 (13:21→23:10)
[2020-04-25] MEDS: Albumin 25% 25 GM/100 ML BOT IVPB SCH ×3 (14:15→23:13)
[2020-04-25] MEDS ORDERED: Metolazone 2.5 MG TAB PO SCH (18:30)
[2020-04-25] MEDS ORDERED: Potassium Chloride 20 MEQ TAB PO SCH (18:30)
[2020-04-25] MEDS: Sulfameth/Trimethoprim DS 800-160mg TAB PO SCH (20:30)
[2020-04-25] MEDS: Transdermal Patch Removal TOP SCH (20:44)
[2020-04-25] MEDS: Morphine 2 MG/ML VIAL SLOW IVP PRN (23:10)
[2020-04-26] MEDS: hydrOXYzine 25 MG TAB PO PRN ×2 (03:36→20:33)
--- NOTE | 2020-04-26 06:05 | PDOC.FM ---
- Subjective Subjective: Patient was sleeping comfortably in bed. He denied any current pain including BROOKS, CP, Abdominal pain and agreed to work with physical therapy, but wanted to continue sleeping for now. - Objective MAR Reviewed: Yes Vital Signs & Weight: Vital Signs (12 hours) Temp Pulse Resp BP Pulse Ox 04/26/20 04:00 98.1 F 77 20 148/76 H 93 L 04/26/20 00:00 98.3 F 79 20 124/66 92 L 04/25/20 20:00 98.9 F 86 20 143/70 H 91 L Weight Weight 245 kg I&O: 04/24/20 04/25/20 04/26/20 06:59 06:59 06:59 Intake Total 240 1200 Output Total 1350 1850 6215 Balance -1350 -1610 -1275 Result Diagrams: 04/26/20 06:05 04/26/20 06:05 Phys Exam - Physical Examination Constitutional: NAD HEENT: moist MMs Respiratory: no wheezing, no rales, no rhonchi Cardiovascular: RRR Gastrointestinal: soft, non-tender erythema continues to improve marked edema presen on BLE, abdomen, scrotum Deviation from normal: Shingles of LLE Dx/Plan - Plan Plan: AHRF likely 2/2 Obesity hypoventilation syndrome - Per clinic records, patient was supposed to follow up with pulmonology. Likely also some component of COPD given smoking hx although not formally diagnosed. Likely also has undiagnosed PAIGE that may be contributing - PRN NC O2, wean O2 as tolerated - Home inhaler, Dulera - incentive spirometer - Duonebs PRN - CXR showed atelectasis - CM consulted for cpap - required 3-5 L overnight - encouraged to work with PT Sepsis 2/2 cellulitis - Patient was seen in hospital 02/2020 for severe LLE cellulitis. Was on IV abx inpatient and transitioned to Kefflex X 1 month then Penicillin VK X 6 months - Areas concerning for infection on LLE and over lower abdomen/pannus, infection appears to be improving - Tachycardia to 100s, tachypneic to upper 20s in ED; tachycardia resolved - Started on IV Clindamycin in ED, will continue and add Vanc, increased Clinda (04/20) to 900mg TID--> d/c Clinda on 04/21 and continue just on Vanc --> started on on 2 tabs Bactrim DS BID (04/26), will continue to monitor for clinical response - XR LLE: no osteo, suggestive of cellulitis - Sono LLE showed very superficial infected fluid collection 3.9x3.8cm; no need for surgery consult given its size and location BLE edema, scrotal edema - On PO Lasix at home for edema, will hold - IV increased to 60mg Lasix q8H-> transition to q6H 04/24 > now receiving 80 mg q6hr - Nephrology, Dr. Cortes, consulted on 04/25 - add albumin q6hr - given 1 time dose of metolazone - urine studies - will add acetazolamide -strict I/Os, daily weights -Urology placed sawyer -testicular U/s showed echogenic focus in L upper testicular pole , follow up advised. Spoke with radiology and they think it may just be an engorged vessel in setting of swelling. Recommend follow up ultrasound when euvolemic -BNP WNL -Echo 02/2020 WNL -Urine pr/Cr .2g/day -RUQ sono showed likely hepatocellular carcinoma and ascites, gallbladder thickening without gallstones -fluid restricted to 2000mL/day Macrocytic Anemia -Folate, B12 WNL -denies alcohol use, TSH WNL -peripheral smear showed macrocytic anemia with differential including liver pathology and myelodysplastic syndrome Thrombocytopenia -aware -patient developed petechiae -will continue to monitor. May be 2/2 Vancomycin vs. liver pathology Abdominal Pain - Constipation vs cellulitis - KUB shows nonspecific gas patterns - Bowel regimen with goal of 1-2 soft BM QD -RUQ sono showing ascites, likely hepatocellular disease. recommend CT given limited exam 2/2 body habitus. gallbladder thickening without gallstones -Hep C negative HTN - Home amlodipine Hematuria -urology consulted, outpatient f/u recommended Hypokalemia -aware -40 meq daily Addendum - Attending - Attending Attestation Date/Time: 04/26/20 1126 I personally evaluated the patient and discussed the management with Dr. Cadet. I agree with the History, Examination, Assessment and Plan documented above with any addition or exceptions noted below. Appreciate nephro assistance with diuresis. Infection continues to improve.
[2020-04-26 06:53] LABS: Phosphorus 3.3 mg/dL (2.3-4.7)
[2020-04-26 06:57] LABS: ALT (SGPT) 13 U/L (8-55); AST (SGOT) 35 U/L (5-34); Albumin 2.6 g/dL (3.5-5.0); Alkaline Phosphatase 105 U/L (40-110); BUN (Urea Nitrogen) 7 mg/dL (8.9-20.6); Bilirubin, Total 1.1 mg/dL (0.2-1.2); Calc. Creatinine Clearance 333 mL/min (70-130); Globulin 5.8 g/dL (2.4-3.5); Glucose 107 mg/dL (70-105); Magnesium 1.5 mg/dL (1.6-2.6); Protein, Total 8.4 g/dL (6.0-8.3)
[2020-04-26 06:58] LABS: Band 1 % (5-11); Eosinophils 2 % (0-10); Hemoglobin 11.6 g/dL (14.0-18.0); Hypochromia SLIGHT = 6-15 cells (100X) (0-5/hpf); Lymphocytes 15 % (21-51); MDiff Complete? YES; Macrocytosis SLIGHT = 6-15 cells (100X) (0-5/hpf); Mean Corpuscular Hemoglobin 33.8 pg (27.0-31.0); Mean Platelet Volume 6.8 fL (7.4-10.4); Monocytes 17 % (0-10); Neutrophil 65 % (42-75); Platelet Count 106 thou/uL (130-400); Platelet Morphology Comment Appears Decreased; RBC Distribution Width 12.7 % (11.5-14.5); Red Blood Cell (RBC) Count 3.44 mill/uL (4.70-6.10); White Blood Cell (WBC) Count 7.8 thou/uL (4.8-10.8)
[2020-04-26] MEDS: Albumin 25% 25 GM/100 ML BOT IVPB SCH ×2 (06:58→13:58)
[2020-04-26] MEDS: Furosemide 100 MG/10 ML VIAL SLOW IVP SCH ×3 (06:58→20:32)
[2020-04-26 07:07] LABS: Anion Gap 13 mmol/L (10-20); Carbon Dioxide 39 mmol/L (22-29); Chloride 88 mmol/L (98-107); Potassium 3.2 mmol/L (3.5-5.1); Sodium 137 mmol/L (136-145)
[2020-04-26] MEDS: Mometasone 200 MCG/Formoterol 5 MCG 120 PUFF INHALER INH SCH ×2 (07:14→19:03)
--- NOTE | 2020-04-26 08:28 | CON ---
DATE OF CONSULTATION: 04/25/2020 CONSULTING PHYSICIAN: Dr. Cadet. REASON FOR CONSULTATION: Difficulty diuresing. REASON FOR ADMISSION: Swelling. HISTORY OF PRESENT ILLNESS: This is a 44-year-old male with history of morbid obesity, sleep apnea, hypertension, obesity hypoventilation syndrome, came to the hospital with swelling and is being diuresed by the primary team, but not making much urine, not making much progress, and Nephrology consulted for assistance. The patient has been also drinking more fluid. No fever or chills. No nausea or vomiting. PAST MEDICAL HISTORY: Positive for; 1. Morbid obesity. 2. Hypertension. 3. Obstructive sleep apnea. 4. Obesity hypoventilation syndrome. PAST SURGICAL HISTORY: Left knee surgery. HOME MEDICATIONS: Reviewed. ALLERGIES: NO KNOWN DRUG ALLERGIES. SOCIAL HISTORY: No smoking, alcohol, or illicit drug abuse reported. History of smoking in the past. FAMILY HISTORY: No history of kidney disease. REVIEW OF SYSTEMS: CONSTITUTIONAL: Negative for weight loss or gain, ability to conduct usual activities. SKIN: Negative for rash, itching. EYES: Negative for double vision, pain. ENT/MOUTH: Negative for nose bleeding, neck stiffness, pain, tenderness. CARDIOVASCULAR: Negative for palpitations, dyspnea on exertion, orthopnea. RESPIRATORY: Negative for shortness of breath, wheezing, cough, hemoptysis, fever or night sweats. GASTROINTESTINAL: Negative for poor appetite, abdominal pain, heartburn, nausea, vomiting, constipation, or diarrhea. GENITOURINARY: Negative for urgency, frequency, dysuria, nocturia. MUSCULOSKELETAL: Negative for pain, swelling. NEUROLOGIC/PSYCHIATRIC: Negative for anxiety, depression. ALLERGY/IMMUNOLOGIC: Negative for skin rash, bleeding tendency. PHYSICAL EXAMINATION: GENERAL: This is a morbidly obese male, in no apparent distress. VITAL SIGNS: Temperature , pulse 86, respiratory rate 16, blood pressure 121/73. HEENT: Atraumatic, normocephalic. Oral mucosa moist. NECK: Supple. CV: S1, S2. Rate and rhythm are regular. RESPIRATORY: Clear. GASTROINTESTINAL: Abdomen is soft. MUSCULOSKELETAL: 2+ edema. DERMATOLOGIC: Chronic skin lesions. NEUROLOGIC: Alert and awake. PSYCHIATRIC: Mood and affect normal. LABORATORY DATA: Potassium is 3.2, BUN is 8, creatinine is 0.9. ASSESSMENT AND PLAN: 1. Chronic edema, not responding to diuretics. We will add metolazone. We will add also albumin. 2. Hypokalemia, replace. 3. Alkalosis. 4. . 5. Hypoalbuminemia. 6. Anemia. 7. Morbid obesity. Plan is to check urine studies. No significant urine proteinuria. We will add metolazone and albumin and monitor. Encourage fluid intake. We will follow. Thank you for the consult. Job ID: [id number]
[2020-04-26] MEDS: Lactinex Tablet PO SCH (08:50)
[2020-04-26] MEDS: Potassium Bicarbonate/Cit Ac 20 MEQ TAB PO SCH (08:50)
[2020-04-26] MEDS: valACYclovir 500 MG TAB PO SCH ×3 (08:50→20:33)
[2020-04-26] MEDS: Amlodipine 5 MG TAB PO SCH (08:51)
[2020-04-26] MEDS: Multivit, Therapeutic 1 TAB PO SCH (08:51)
[2020-04-26] MEDS: Potassium Chloride 10 MEQ TAB PO SCH (08:51)
[2020-04-26] MEDS: Sulfameth/Trimethoprim DS 800-160mg TAB PO SCH ×2 (08:51→20:33)
[2020-04-26] MEDS: AcetaZOLAMIDE 250 MG TAB PO SCH (08:51)
[2020-04-26] MEDS: Aspirin 81 mg Enteric Coated Tablet PO SCH (08:51)
[2020-04-26] MEDS: Enoxaparin Sodium 60 MG/0.6 ML SYRINGE SC SCH ×2 (08:52→20:33)
[2020-04-26] MEDS: Polyethylene Glycol 3350 17 GM Packet PO SCH (08:52)
[2020-04-26] MEDS: Lidocaine 5% Patch TD SCH (08:52)
[2020-04-26] MEDS ORDERED: Potassium Chloride 10 MEQ TAB PO SCH (09:15)
[2020-04-26] MEDS ORDERED: Sulfameth/Trimethoprim DS 800-160mg TAB PO SCH (09:15)
[2020-04-26] MEDS: Sucralfate 1 GM/10 ML UDCUP PO SCH ×4 (11:03→20:31)
--- NOTE | 2020-04-26 15:29 | PRG ---
DATE OF SERVICE: 04/26/2020 SUBJECTIVE: Patient was seen and examined at bedside and overnight events noted. Patient denies any shortness of breath or chest pain or palpitation. No history of nausea or vomiting or diarrhea or fever or chills or cramps. OBJECTIVE: GENERAL: This is a morbidly obese male, in no apparent distress. VITAL SIGNS: Temperature 98.0. Heart rate 80. Respiratory rate 16. Blood pressure 120/70. HEENT: Atraumatic, normocephalic. Oral mucosa is moist. NECK: Supple. CARDIOVASCULAR: S1, S2 heard. Rate and rhythm regular. RESPIRATORY: Clear to auscultation. GASTROINTESTINAL: Abdomen is soft. MUSCULOSKELETAL: 2+ edema. DERMATOLOGIC: No skin rash. NEUROLOGIC: Alert and awake and oriented x3. No focal neurologic deficits. Moving all the extremities. PSYCHIATRIC: Mood and affect normal. LABORATORY DATA: Potassium 3.2, BUN is 7, creatinine is 0.9. ASSESSMENT AND PLAN: 1. Chronic edema, on diuretics. Metolazone was given and good diuresis. Advised limit fluid intake and he could use metolazone every 2 days if needed. 2. Alkalosis, on acetazolamide. 3. Hypokalemia. Closely monitor with diuretics and replace magnesium and potassium. 4. Hypoalbuminemia. 5. Anemia. 6. Morbid obesity. The patient is high risk for acute kidney injury. Given multiple medications including valacyclovir and Bactrim and diuretics. Also high risk for hyperkalemia, but currently remains hypokalemic. Okay with cautious supplementation. Continue close monitoring of the labs and the fluid status and we will follow. Job ID: [id number]
[2020-04-26] MEDS: Transdermal Patch Removal TOP SCH (20:34)
[2020-04-26] MEDS: Acetaminophen 325 MG TAB PO PRN (21:57)
[2020-04-26] MEDS: Gabapentin 300 MG CAP PO PRN (21:57)
[2020-04-27] MEDS: Furosemide 100 MG/10 ML VIAL SLOW IVP SCH ×3 (01:30→14:59)
--- NOTE | 2020-04-27 05:39 | PDOC.FM ---
- Subjective Subjective: Patient reports continued difficulty breathing overnight, pain in his scrotum. His nose is very dry from NC. Denies BROOKS, CP, abdominal pain. - Objective MAR Reviewed: Yes Vital Signs & Weight: Vital Signs (12 hours) Temp Pulse Resp BP Pulse Ox 04/27/20 00:50 67 16 92 L 04/26/20 23:03 70 22 H 134/82 92 L 04/26/20 19:42 98.3 F 74 22 H 123/66 91 L Weight Weight 249.7 kg I&O: 04/25/20 04/26/20 04/27/20 06:59 06:59 06:59 Intake Total 240 1200 1360 Output Total 1377 2759 5566 Balance -4097 -1046 -1692 Result Diagrams: 04/27/20 05:52 04/27/20 05:52 Phys Exam - Physical Examination Constitutional: NAD HEENT: PERRLA Neck: supple Respiratory: no wheezing, clear to auscultation bilateral Cardiovascular: RRR Gastrointestinal: soft erythema continues to improve 2+ edema Neurological: non-focal, normal sensation Psychiatric: A&O x 3 Deviation from normal: multiple rashes between skin folds Dx/Plan - Plan Plan: AHRF likely 2/2 Obesity hypoventilation syndrome - Per clinic records, patient was supposed to follow up with pulmonology. Likely also some component of COPD given smoking hx although not formally diagnosed. Likely also has undiagnosed PAIGE that may be contributing - PRN [place] O2, wean O2 as tolerated - Home inhaler, Dulera - incentive spirometer - Duonebs PRN - CXR showed atelectasis - CM consulted for cpap - required 3-5 L overnight - encouraged to work with PT Sepsis 2/2 cellulitis - Patient was seen in hospital 02/2020 for severe LLE cellulitis. Was on IV abx inpatient and transitioned to Kefflex X 1 month then Penicillin VK X 6 months - Areas concerning for infection on LLE and over lower abdomen/pannus, infection appears to be improving - Tachycardia to 100s, tachypneic to upper 20s in ED; tachycardia resolved - Started on IV Clindamycin in ED, will continue and add Vanc, increased Clinda (04/20) to 900mg TID--> d/c Clinda on 04/21 and continue just on Vanc --> started on on 2 tabs Bactrim DS BID (04/26), will continue to monitor for clinical response - XR LLE: no osteo, suggestive of cellulitis - Sono LLE showed very superficial infected fluid collection 3.9x3.8cm; no need for surgery consult given its size and location BLE edema, scrotal edema - On PO Lasix at home for edema, will hold - Due to elevated bicarb, will hold lasix today with hopes of resuming tomorrow - Nephrology, Dr. Cortes, consulted on 04/25 - add albumin q6hr - given 1 time dose of metolazone - urine studies - will increase acetazolamide -strict I/Os, daily weights -Urology placed sawyer -testicular U/s showed echogenic focus in L upper testicular pole , follow up advised. Spoke with radiology and they think it may just be an engorged vessel in setting of swelling. Recommend follow up ultrasound when euvolemic -BNP WNL -Echo 02/2020 WNL -Urine pr/Cr .2g/day -RUQ sono showed likely hepatocellular carcinoma and ascites, gallbladder th ickening without gallstones -fluid restricted to 1500mL/day Contraction alkalosis - will increase acetazolamide and hold lasix today Macrocytic Anemia -Folate, B12 WNL -denies alcohol use, TSH WNL -peripheral smear showed macrocytic anemia with differential including liver pathology and myelodysplastic syndrome Thrombocytopenia -aware -will continue to monitor. May be 2/2 Vancomycin vs. liver pathology Abdominal Pain - Constipation vs cellulitis - KUB shows nonspecific gas patterns - Bowel regimen with goal of 1-2 soft BM QD -RUQ sono showing ascites, likely hepatocellular disease. recommend CT given limited exam 2/2 body habitus. gallbladder thickening without gallstones -Hep C negative HTN - Home amlodipine Hematuria -urology consulted, outpatient f/u recommended Hypokalemia -aware -40 meq daily -at risk for hyperkalemia per nephro, will monitor closely Addendum - Attending - Attending Attestation Date/Time: 04/27/20 7739 I personally evaluated the patient and discussed the management with Dr. Cadet. I agree with the History, Examination, Assessment and Plan documented above with any addition or exceptions noted below. Increased diamox. hold lasix today since he has a significant contraction alkalosis. Nystatin powder for paniculitis.
[2020-04-27 06:32] LABS: BUN (Urea Nitrogen) 8 mg/dL (8.9-20.6); Calc. Creatinine Clearance 288 mL/min (70-130); Calcium 8.5 mg/dL (7.8-10.44); Glucose 102 mg/dL (70-105); Magnesium 1.6 mg/dL (1.6-2.6)
[2020-04-27 06:41] LABS: Anion Gap 10 mmol/L (10-20); Chloride 88 mmol/L (98-107); Potassium 3.3 mmol/L (3.5-5.1); Sodium 138 mmol/L (136-145)
[2020-04-27 06:44] LABS: Eosinophils 10 % (0-10); Hemoglobin 11.8 g/dL (14.0-18.0); Lymphocytes 20 % (21-51); MDiff Complete? YES; Mean Corpuscular HGB CONC 31.6 g/dL (32.0-36.0); Mean Corpuscular Hemoglobin 34.5 pg (27.0-31.0); Mean Platelet Volume 6.9 fL (7.4-10.4); Monocytes 11 % (0-10); Neutrophil 59 % (42-75); Platelet Count 106 thou/uL (130-400); Platelet Morphology Comment Appears Decreased; RBC Distribution Width 12.6 % (11.5-14.5); Red Blood Cell (RBC) Count 3.43 mill/uL (4.70-6.10); White Blood Cell (WBC) Count 6.9 thou/uL (4.8-10.8)
[2020-04-27 06:47] LABS: Carbon Dioxide 43 mmol/L (22-29)
[2020-04-27] MEDS: Mometasone 200 MCG/Formoterol 5 MCG 120 PUFF INHALER INH SCH ×2 (07:10→20:29)
[2020-04-27] MEDS: Potassium Chloride 20 MEQ TAB PO SCH (08:43)
[2020-04-27] MEDS: Enoxaparin Sodium 60 MG/0.6 ML SYRINGE SC SCH ×2 (08:44→21:27)
[2020-04-27] MEDS: Sulfameth/Trimethoprim DS 800-160mg TAB PO SCH ×2 (08:45→21:27)
[2020-04-27] MEDS: Amlodipine 5 MG TAB PO SCH (08:45)
[2020-04-27] MEDS: Polyethylene Glycol 3350 17 GM Packet PO SCH (08:46)
[2020-04-27] MEDS: Lactinex Tablet PO SCH (08:46)
[2020-04-27] MEDS: Lidocaine 5% Patch TD SCH (08:46)
[2020-04-27] MEDS: AcetaZOLAMIDE 250 MG TAB PO SCH (08:46)
[2020-04-27] MEDS: Aspirin 81 mg Enteric Coated Tablet PO SCH (08:46)
[2020-04-27] MEDS: Multivit, Therapeutic 1 TAB PO SCH (08:46)
[2020-04-27] MEDS: valACYclovir 500 MG TAB PO SCH ×3 (09:39→21:27)
[2020-04-27] MEDS: Sucralfate 1 GM/10 ML UDCUP PO SCH ×4 (09:40→21:28)
[2020-04-27] MEDS ORDERED: AcetaZOLAMIDE 250 MG TAB PO SCH ×2 (09:57→10:00)
[2020-04-27] MEDS ORDERED: Sodium Chloride 0.65% Nasal 44 ML BOT EA NARE PRN (11:40)
[2020-04-27] MEDS: Nystatin Powder 15 GM BOT TOP PRN (15:02)
--- NOTE | 2020-04-27 18:57 | PRG ---
DATE OF SERVICE: 04/27/2020 SUBJECTIVE: A 44-year-old gentleman being seen for acute kidney injury. The patient denied any nausea, vomiting, or chest pain PHYSICAL EXAMINATION: General: The patient is awake and alert. Vital Signs: Afebrile, pulse 93, breathing at 16, blood pressure 132/79. HEENT: Head normocephalic and atraumatic. Eyes intact, no ulcers. Nose intact, no ulcers. Ears intact, no ulcers. Neck: Supple. No JVD. Chest: Symmetrical and clear. Cardiovascular: Shows S1 and S2, no rub, no murmur. Gastrointestinal: Abdomen is soft, bowel sounds positive. Extremities: Show no edema or ulcers. Skin: Shows no rash or petechiae. Musculoskeletal: Shows no joint swelling or stiffness. Genitourinary: Shows no Lobo or CVA tenderness. Neurologic: Motor intact. Cranial nerves intact. LABORATORY DATA: Lab showed hemoglobin 9.8. Creatinine 1.1. ASSESSMENT AND PLAN: 1. Acute kidney injury with chronic kidney disease, stage 2, stable. 2. Hypertension, stable. 3. Metabolic alkalosis most likely because of contraction alkalosis. Recommend getting ABG. The patient has chronic lymphedema, so dialysis is not an option. The patient will need a workup for venous insufficiency versus workup for lymphedema. Continue decreasing the dose of diuretics to twice a day. 4. Hypokalemia. Recommend oral potassium replacement. No indication for dialysis. 5. Hypomagnesemia, resolved. I will sign off on this patient. Please reconsult with any questions. Job ID: [id number]
[2020-04-27] MEDS: Transdermal Patch Removal TOP SCH (21:28)
[2020-04-27] MEDS: Gabapentin 300 MG CAP PO PRN (23:04)
[2020-04-27] MEDS: Acetaminophen 325 MG TAB PO PRN (23:04)
[2020-04-28] MEDS: Furosemide 100 MG/10 ML VIAL SLOW IVP SCH ×2 (05:46→13:42)
[2020-04-28 05:51] LABS: Band 2 % (5-11); Eosinophils 11 % (0-10); Hemoglobin 11.6 g/dL (14.0-18.0); Hypochromia SLIGHT = 6-15 cells (100X) (0-5/hpf); Lymphocytes 18 % (21-51); MDiff Complete? YES; Macrocytosis SLIGHT = 6-15 cells (100X) (0-5/hpf); Mean Corpuscular HGB CONC 32.2 g/dL (32.0-36.0); Mean Corpuscular Hemoglobin 35.1 pg (27.0-31.0); Mean Platelet Volume 7.2 fL (7.4-10.4); Monocytes 4 % (0-10); Neutrophil 65 % (42-75); Platelet Count 115 thou/uL (130-400); Platelet Morphology Comment Appears Decreased; RBC Distribution Width 12.7 % (11.5-14.5); White Blood Cell (WBC) Count 7.6 thou/uL (4.8-10.8)
[2020-04-28 06:24] LABS: BUN (Urea Nitrogen) 10 mg/dL (8.9-20.6); Calc. Creatinine Clearance 259 mL/min (70-130); Calcium 8.8 mg/dL (7.8-10.44); Glucose 105 mg/dL (70-105); Magnesium 1.8 mg/dL (1.6-2.6)
[2020-04-28 06:34] LABS: Anion Gap 13 mmol/L (10-20); Carbon Dioxide 40 mmol/L (22-29); Chloride 87 mmol/L (98-107); Potassium 3.3 mmol/L (3.5-5.1); Sodium 137 mmol/L (136-145)
--- NOTE | 2020-04-28 06:41 | PDOC.FM ---
- Subjective Subjective: BiPAP was obtained for patient overnight but he refused to wear it. Says that it makes him feel like he is being suffocated and dries his mouth out. Reports continued pain in his scrotum. Denies CP, abdominal pain. - Objective MAR Reviewed: Yes Vital Signs & Weight: Vital Signs (12 hours) Temp Pulse Resp BP Pulse Ox 04/28/20 03:12 98.2 F 79 20 132/84 88 L 04/27/20 23:01 98.9 F 85 18 133/71 89 L 04/27/20 19:14 98.8 F 80 18 116/72 88 L Weight Weight 243.8 kg I&O: 04/26/20 04/27/20 04/28/20 06:59 06:59 06:59 Intake Total 1200 1360 1576 Output Total 4189 3141 9560 [facility] -1275 -6615 -7974 Result Diagrams: 04/28/20 05:13 04/28/20 05:13 Phys Exam - Physical Examination Constitutional: NAD HEENT: PERRLA Respiratory: no wheezing, no rales, no rhonchi, clear to auscultation bilateral Cardiovascular: RRR Gastrointestinal: soft, positive bowel sounds erythema under panus but improving 2+ pitting edema Neurological: non-focal Psychiatric: normal affect Deviation from normal: multiple rashed between skin folds Dx/Plan - Plan Plan: AHRF likely 2/2 Obesity hypoventilation syndrome - likely undiagnosed COPD and PAIGE - PRN [place] O2, patient is CO2 dependent, instructed nursing to keep saturations in low 90s - Home Dulera, incentive spirometer, Duonebs PRN - BiPAP provided for patient last night, but refused to use it; continue to encourage patient to wear it while sleeping - CM consulted for home BiPAP - encouraged to work with PT Sepsis 2/2 cellulitis - Patient was seen in hospital 02/2020 for severe LLE cellulitis. Was on IV abx inpatient and transitioned to Kefflex X 1 month then Penicillin VK X 6 months - Areas concerning for infection on LLE and over lower abdomen/pannus, infection appears to be improving - Tachycardia to 100s, tachypneic to upper 20s in ED; tachycardia resolved - Started on IV Clindamycin in ED, will continue and add Vanc, increased Clinda (04/20) to 900mg TID--> d/c Clinda on 04/21 and continue just on Vanc --> started on on 2 tabs Bactrim DS BID (04/26), will continue to monitor for clinical response - XR LLE: no osteo, suggestive of cellulitis - Sono LLE showed very superficial infected fluid collection 3.9x3.8cm; no need for surgery consult given its size and location BLE edema, scrotal edema - On PO Lasix at home for edema, will hold - Lasix held yesterday due to contraction alkalosis, will restart today as below - Nephrology, Dr. Cortes, consulted on 04/25 - s/p albumin, metolazone - IV lasix 80 mg IV BID - acetazolamide increased yesterday - strict I/Os, daily weights -Urology placed sawyer -testicular US: echogenic focus in L upper testicular pole, radiology - may just be an engorged vessel in setting of swelling, Recommend f/u US when euvolemic -BNP WNL -Echo 02/2020 WNL -Urine pr/Cr .2g/day -RUQ sono showed likely hepatocellular disease and ascites, gallbladder thickening without gallstones -fluid restricted to 1500mL/day Contraction alkalosis - improved - increases acetazolamide Macrocytic Anemia - Folate, B12 WNL - denies alcohol use, TSH WNL - peripheral smear showed macrocytic anemia with differential including liver pathology and myelodysplastic syndrome Thrombocytopenia -aware -will continue to monitor. May be 2/2 Vancomycin vs. liver pathology Abdominal Pain - Constipation vs cellulitis - Bowel regimen with goal of 1-2 soft BM QD - RUQ sono showing ascites, likely hepatocellular disease. recommend CT given limited exam 2/2 body habitus. gallbladder thickening without gallstones - Hep C negative HTN - Home amlodipine Hematuria - urology consulted, outpatient f/u recommended Hypokalemia -aware, 40 meq daily, continue replacing as needed -at risk for hyperkalemia per nephro, will monitor closely Addendum - Attending - Attending Attestation Date/Time: 04/28/20 1142 I personally evaluated the patient and discussed the management with Dr. Cadet. I agree with the History, Examination, Assessment and Plan documented above with any addition or exceptions noted below. He has had massive diuresis in the last 48 hours and has a contraction alkalosis as a result. Nephro advised to continue lasix for now. if this worsens this afternoon, will consider holding lasix until alkalosis improves. replace electrolytes aggressively. d/c amlodipine as this may be contributing to his peripheral edema.
[2020-04-28] MEDS: Mometasone 200 MCG/Formoterol 5 MCG 120 PUFF INHALER INH SCH ×2 (07:33→18:49)
[2020-04-28] MEDS: Potassium Chloride 20 MEQ TAB PO SCH (08:36)
[2020-04-28] MEDS: Aspirin 81 mg Enteric Coated Tablet PO SCH (08:36)
[2020-04-28] MEDS: Sulfameth/Trimethoprim DS 800-160mg TAB PO SCH ×2 (08:37→21:55)
[2020-04-28] MEDS: Amlodipine 5 MG TAB PO SCH (08:37)
[2020-04-28] MEDS: Multivit, Therapeutic 1 TAB PO SCH (08:37)
[2020-04-28] MEDS: Enoxaparin Sodium 60 MG/0.6 ML SYRINGE SC SCH ×2 (08:38→21:56)
[2020-04-28] MEDS: AcetaZOLAMIDE 250 MG TAB PO SCH (08:38)
[2020-04-28] MEDS: Lactinex Tablet PO SCH (08:38)
[2020-04-28] MEDS: Sucralfate 1 GM/10 ML UDCUP PO SCH ×4 (08:38→21:55)
[2020-04-28] MEDS: valACYclovir 500 MG TAB PO SCH ×3 (08:39→21:54)
[2020-04-28] MEDS ORDERED: Potassium Chloride 20 MEQ TAB PO SCH (09:15)
[2020-04-28] MEDS: Lidocaine 5% Patch TD SCH (10:35)
[2020-04-28] MEDS: Polyethylene Glycol 3350 17 GM Packet PO SCH (10:55)
[2020-04-28] MEDS ORDERED: Magnesium 2 GM/50 ML 2 GM in Premix Bag 1 BAG IVPB SCH (11:15)
[2020-04-28 16:58] LABS: BUN (Urea Nitrogen) 10 mg/dL (8.9-20.6); Calc. Creatinine Clearance 243 mL/min (70-130); Calcium 8.9 mg/dL (7.8-10.44); Glucose 145 mg/dL (70-105)
[2020-04-28 17:08] LABS: Chloride 89 mmol/L (98-107); Potassium 3.7 mmol/L (3.5-5.1); Sodium 136 mmol/L (136-145)
[2020-04-28 17:10] LABS: Anion Gap 16 mmol/L (10-20); Carbon Dioxide 35 mmol/L (22-29)
[2020-04-28] MEDS: Transdermal Patch Removal TOP SCH (21:56)
[2020-04-29 05:52] LABS: Band 2 % (5-11); Eosinophils 7 % (0-10); Hemoglobin 11.5 g/dL (14.0-18.0); Lymphocytes 20 % (21-51); MDiff Complete? YES; Mean Corpuscular HGB CONC 32.6 g/dL (32.0-36.0); Mean Corpuscular Hemoglobin 35.6 pg (27.0-31.0); Monocytes 10 % (0-10); Neutrophil 61 % (42-75); Platelet Count 131 thou/uL (130-400); Platelet Morphology Comment Appears Adequate; Red Blood Cell (RBC) Count 3.24 mill/uL (4.70-6.10)
--- NOTE | 2020-04-29 06:03 | PDOC.FM ---
- Subjective Subjective: Reports continued scrotal pain and LE pain. Denies CP, abd pain. Did not wear BiPAP over night. - Objective Vital Signs & Weight: Vital Signs (12 hours) Temp Pulse Resp BP Pulse Ox 04/29/20 03:19 98.4 F 80 18 119/71 92 L 04/28/20 23:03 98.3 F 75 18 125/75 89 L 04/28/20 22:03 92 L 04/28/20 19:13 98.9 F 83 18 133/74 88 L Weight Weight 243.1 g I&O: 04/27/20 04/28/20 04/29/20 06:59 06:59 06:59 Intake Total 1360 1576 Output Total 7974 9694 0351 Balance -6615 -7958 -2100 Result Diagrams: 04/29/20 05:20 04/29/20 05:20 Phys Exam - Physical Examination Constitutional: NAD HEENT: PERRLA Neck: supple Respiratory: no wheezing, no rales, clear to auscultation bilateral Cardiovascular: RRR Gastrointestinal: soft, non-tender edema markedly improved Neurological: non-focal, moves all 4 limbs Psychiatric: normal affect Skin: no rash Dx/Plan - Plan Plan: AHRF likely 2/2 Obesity hypoventilation syndrome - likely undiagnosed COPD and PAIGE - PRN [place] O2, patient is CO2 dependent, instructed nursing to keep saturations in low 90s - Home Dulera, incentive spirometer, Duonebs PRN - BiPAP provided, but refused to use it; continue to encourage patient to wear it while sleeping - CM consulted for home BiPAP, consider SNF placement - encouraged to work with PT Sepsis 2/2 cellulitis - Patient was seen in hospital 02/2020 for severe LLE cellulitis. Was on IV abx inpatient and transitioned to Kefflex X 1 month then Penicillin VK X 6 months - Areas concerning for infection on LLE and over lower abdomen/pannus, infection appears to be improving - Tachycardia to 100s, tachypneic to upper 20s in ED; tachycardia resolved - Started on IV Clindamycin in ED, will continue and add Vanc, increased Clinda (04/20) to 900mg TID--> d/c Clinda on 04/21 and continue just on Vanc --> started on on 2 tabs Bactrim DS BID (04/26), will continue to monitor for clinical response - XR LLE: no osteo, suggestive of cellulitis - Sono LLE showed very superficial infected fluid collection 3.9x3.8cm; no need for surgery consult given its size and location BLE edema, scrotal edema - On PO Lasix at home for edema, will hold - will hold Lasix for now due to IKE (Cr: 1.38), net neg > 20 L - Nephrology, Dr. Cortes, consulted on 04/25 - s/p albumin, metolazone - acetazolamide - strict I/Os, daily weights -Urology placed sawyer -testicular US: echogenic focus in L upper testicular pole, radiology - may just be an engorged vessel in setting of swelling, Recommend f/u US when euvolemic -BNP WNL -Echo 02/2020 WNL -Urine pr/Cr .2g/day -RUQ sono showed likely hepatocellular disease and ascites, gallbladder thickening without gallstones -fluid restricted to 1500mL/day > increase to 2000 ml Contraction alkalosis - improved - increases acetazolamide Macrocytic Anemia - Folate, B12 WNL - denies alcohol use, TSH WNL - peripheral smear showed macrocytic anemia with differential including liver pathology and myelodysplastic syndrome Thrombocytopenia -aware -will continue to monitor. May be 2/2 Vancomycin vs. liver pathology Abdominal Pain - Constipation vs cellulitis - Bowel regimen with goal of 1-2 soft BM QD - RUQ sono showing ascites, likely hepatocellular disease. recommend CT given limited exam 2/2 body habitus. gallbladder thickening without gallstones - Hep C negative HTN - Home amlodipine Hematuria - urology consulted, outpatient f/u recommended Hypokalemia -aware, 40 meq daily, continue replacing as needed -at risk for hyperkalemia per nephro, will monitor closely Addendum - Attending - Attending Attestation Date/Time: 04/29/20 1131 I personally evaluated the patient and discussed the management with Dr. Meche dang. I agree with the History, Examination, Assessment and Plan documented above with any addition or exceptions noted below. Renal function worsening. Likely due to over diuresis. Hold lasix today and tomorrow. BID BMP. Decreased fluid restriction to 2L daily. Day 4/10 of abx. Cellulitis improving. Working with CM on potential isabel placement.
[2020-04-29 06:14] LABS: Anion Gap 16 mmol/L (10-20); Carbon Dioxide 35 mmol/L (22-29); Chloride 88 mmol/L (98-107); Sodium 135 mmol/L (136-145)
[2020-04-29 06:19] LABS: BUN (Urea Nitrogen) 10 mg/dL (8.9-20.6); Calc. Creatinine Clearance 0 mL/min (70-130); Calcium 8.5 mg/dL (7.8-10.44); Glucose 110 mg/dL (70-105); Magnesium 2.1 mg/dL (1.6-2.6)
[2020-04-29] MEDS: Furosemide 100 MG/10 ML VIAL SLOW IVP SCH (06:21)
[2020-04-29] MEDS: Mometasone 200 MCG/Formoterol 5 MCG 120 PUFF INHALER INH SCH ×2 (07:58→18:55)
[2020-04-29] MEDS: Enoxaparin Sodium 60 MG/0.6 ML SYRINGE SC SCH ×2 (09:24→20:58)
[2020-04-29] MEDS: Sucralfate 1 GM/10 ML UDCUP PO SCH ×4 (09:24→21:12)
[2020-04-29] MEDS: Polyethylene Glycol 3350 17 GM Packet PO SCH (09:24)
[2020-04-29] MEDS: AcetaZOLAMIDE 250 MG TAB PO SCH (09:24)
[2020-04-29] MEDS: Aspirin 81 mg Enteric Coated Tablet PO SCH (09:24)
[2020-04-29] MEDS: valACYclovir 500 MG TAB PO SCH ×3 (09:24→20:58)
[2020-04-29] MEDS: Lactinex Tablet PO SCH (09:24)
[2020-04-29] MEDS: Sulfameth/Trimethoprim DS 800-160mg TAB PO SCH ×2 (09:25→20:58)
[2020-04-29] MEDS: Potassium Chloride 20 MEQ TAB PO SCH (09:25)
[2020-04-29] MEDS: Multivit, Therapeutic 1 TAB PO SCH (09:25)
[2020-04-29] MEDS: Lidocaine 5% Patch TD SCH (09:26)
[2020-04-29] MEDS: Nystatin Powder 15 GM BOT TOP PRN (09:36)
[2020-04-29 15:20] LABS: BUN (Urea Nitrogen) 10 mg/dL (8.9-20.6); Calc. Creatinine Clearance 0 mL/min (70-130); Calcium 8.6 mg/dL (7.8-10.44); Glucose 117 mg/dL (70-105)
[2020-04-29 15:30] LABS: Anion Gap 17 mmol/L (10-20); Carbon Dioxide 33 mmol/L (22-29); Chloride 90 mmol/L (98-107); Potassium 3.5 mmol/L (3.5-5.1); Sodium 136 mmol/L (136-145)
[2020-04-29] MEDS: Transdermal Patch Removal TOP SCH (21:04)
[2020-04-30] MEDS: Acetaminophen 325 MG TAB PO PRN ×2 (00:48→06:24)
[2020-04-30] MEDS: hydrOXYzine 25 MG TAB PO PRN ×2 (00:49→20:44)
[2020-04-30 06:29] LABS: Eosinophils 2 % (0-10); Hemoglobin 11.9 g/dL (14.0-18.0); Hypochromia SLIGHT = 6-15 cells (100X) (0-5/hpf); Lymphocytes 30 % (21-51); MDiff Complete? YES; Mean Corpuscular HGB CONC 32.5 g/dL (32.0-36.0); Mean Corpuscular Hemoglobin 35.9 pg (27.0-31.0); Monocytes 8 % (0-10); Neutrophil 59 % (42-75); Platelet Count 90 thou/uL (130-400); Platelet Morphology Comment Appears Decreased; Reactive Lymphocytes 1 % (0-10); Red Blood Cell (RBC) Count 3.31 mill/uL (4.70-6.10); White Blood Cell (WBC) Count 6.6 thou/uL (4.8-10.8)
[2020-04-30 06:33] LABS: Anion Gap 13 mmol/L (10-20); BUN (Urea Nitrogen) 11 mg/dL (8.9-20.6); Calc. Creatinine Clearance 0 mL/min (70-130); Calcium 8.3 mg/dL (7.8-10.44); Carbon Dioxide 34 mmol/L (22-29); Chloride 91 mmol/L (98-107); Glucose 95 mg/dL (70-105); Potassium 3.5 mmol/L (3.5-5.1); Sodium 134 mmol/L (136-145)
[2020-04-30] MEDS: Mometasone 200 MCG/Formoterol 5 MCG 120 PUFF INHALER INH SCH ×2 (06:57→18:55)
--- NOTE | 2020-04-30 08:29 | PDOC.FM ---
- Subjective Subjective: Patient reports that he attempted to wear BiPAP overnight but only tolerated it for 25 minutes. Reports improved scrotal pain and swelling. Denies CP, BROOKS, Abd pain. - Objective MAR Reviewed: Yes Vital Signs & Weight: Vital Signs (12 hours) Temp Pulse Resp BP Pulse Ox 04/30/20 03:39 97.6 F 73 16 120/67 94 L 04/29/20 23:23 98.7 F 85 14 129/65 95 04/29/20 20:58 92 L Weight Weight 243.1 g I&O: 04/29/20 04/30/20 05/01/20 06:59 06:59 06:59 Intake Total 480 1560 Output Total 3100 3550 Balance Result Diagrams: 04/30/20 06:06 04/30/20 06:06 Phys Exam - Physical Examination Constitutional: NAD HEENT: moist MMs Neck: supple Respiratory: no wheezing, clear to auscultation bilateral Cardiovascular: RRR Gastrointestinal: soft, positive bowel sounds markedly improved BLE edema and scrotal edema Neurological: non-focal, moves all 4 limbs Psychiatric: normal affect Deviation from normal: cellulitis continues to improve, shigles improved Dx/Plan - Plan Plan: AHRF likely 2/2 Obesity hypoventilation syndrome - likely undiagnosed COPD and PAIGE - PRN NC O2, patient is CO2 dependent, instructed nursing to keep saturations in low 90s - Home Dulera, incentive spirometer, Duonebs PRN - BiPAP provided, but refused to use it; continue to encourage patient to wear it while sleeping - CM consulted SNF placement - encouraged to work with PT Sepsis 2/2 cellulitis - Patient was seen in hospital 02/2020 for severe LLE cellulitis. Was on IV abx inpatient and transitioned to Kefflex X 1 month then Penicillin VK X 6 months - Areas concerning for infection on LLE and over lower abdomen/pannus, infection appears to be improving - Tachycardia to 100s, tachypneic to upper 20s in ED; tachycardia resolved - Started on IV Clindamycin in ED, will continue and add Vanc, increased Clinda (04/20) to 900mg TID--> d/c Clinda on 04/21 and continue just on Vanc --> started on on 2 tabs Bactrim DS BID (day 08/10 today), improving clinically - XR LLE: no osteo, suggestive of cellulitis - Sono LLE showed very superficial infected fluid collection 3.9x3.8cm; no need for surgery consult given its size and location BLE edema, scrotal edema - On PO Lasix at home for edema, will hold - will hold Lasix for now due to IKE (Cr: 1.38 > 1.21), net neg > 20 L - Nephrology, Dr. Cortes, consulted on 04/25 - s/p albumin, metolazone - acetazolamide - strict I/Os, daily weights -Urology placed sawyer -testicular US: echogenic focus in L upper testicular pole, radiology - may just be an engorged vessel in setting of swelling, Recommend f/u US when euvolemic -BNP WNL -Echo 02/2020 WNL -Urine pr/Cr .2g/day -RUQ sono showed likely hepatocellular disease and ascites, gallbladder thickening without gallstones -fluid restricted to 1500mL/day > increase to 2000 ml IKE, resolving - likely 2/2 to diuresis mentioned above - holding lasix Herpes Zoster - incidentally found - started on valacyclovir on 04/23, day 10/07 today Contraction alkalosis - improved - increases acetazolamide Macrocytic Anemia - Folate, B12 WNL - denies alcohol use, TSH WNL - peripheral smear showed macrocytic anemia with differential including liver pathology and myelodysplastic syndrome Thrombocytopenia -aware -will continue to monitor. May be 2/2 Vancomycin vs. liver pathology Abdominal Pain - Constipation vs cellulitis - Bowel regimen with goal of 1-2 soft BM QD - RUQ sono showing ascites, likely hepatocellular disease. recommend CT given limited exam 2/2 body habitus. gallbladder thickening without gallstones - Hep C negative HTN - Home amlodipine Hematuria - urology consulted, outpatient f/u recommended Hypokalemia -aware, 40 meq daily, continue replacing as needed -at risk for hyperkalemia per nephro, will monitor closely Addendum - Attending - Attending Attestation Date/Time: 04/30/20 1222 I personally evaluated the patient and discussed the management with Dr. Cadet. I agree with the History, Examination, Assessment and Plan documented above with any addition or exceptions noted below. IKE improving. restart lasix 40 mg qd. monitor I&O. His right testicle is returned to normal per patient but his left is still swollen and causing him pain. The end point of his hospitalization is difficult given his multiple co- morbid conditions and uninsured status. Will attempt to reduce his left hydrocel e as he states this causes him pain. will d/c abx on monday after 14 total days of tx. his cellulitis has resolved. will complete course of acyclovir. shingles lesions resolved as well.
[2020-04-30] MEDS ORDERED: Furosemide 40 MG/4 ML VIAL SLOW IVP SCH (10:15)
[2020-04-30] MEDS: Potassium Chloride 20 MEQ TAB PO SCH (10:17)
[2020-04-30] MEDS: AcetaZOLAMIDE 250 MG TAB PO SCH (10:17)
[2020-04-30] MEDS: Enoxaparin Sodium 60 MG/0.6 ML SYRINGE SC SCH ×2 (10:18→20:14)
[2020-04-30] MEDS: Aspirin 81 mg Enteric Coated Tablet PO SCH (10:18)
[2020-04-30] MEDS: Multivit, Therapeutic 1 TAB PO SCH (10:19)
[2020-04-30] MEDS: Polyethylene Glycol 3350 17 GM Packet PO SCH (10:19)
[2020-04-30] MEDS: Lidocaine 5% Patch TD SCH (10:19)
[2020-04-30] MEDS: Sucralfate 1 GM/10 ML UDCUP PO SCH ×4 (10:19→20:42)
[2020-04-30] MEDS: Lactinex Tablet PO SCH (10:20)
[2020-04-30] MEDS: Sulfameth/Trimethoprim DS 800-160mg TAB PO SCH ×2 (10:20→20:42)
[2020-04-30] MEDS: valACYclovir 500 MG TAB PO SCH ×2 (10:34→14:10)
[2020-04-30] MEDS: Transdermal Patch Removal TOP SCH (20:14)
[2020-05-01 06:00] LABS: Hemoglobin 11.9 g/dL (14.0-18.0); Mean Corpuscular HGB CONC 32.3 g/dL (32.0-36.0); Mean Platelet Volume 6.8 fL (7.4-10.4); Platelet Count 126 thou/uL (130-400); RBC Distribution Width 13.3 % (11.5-14.5); Red Blood Cell (RBC) Count 3.39 mill/uL (4.70-6.10); White Blood Cell (WBC) Count 7.5 thou/uL (4.8-10.8)
[2020-05-01 06:03] LABS: Band 2 % (5-11); Eosinophils 3 % (0-10); Lymphocytes 23 % (21-51); MDiff Complete? YES; Macrocytosis SLIGHT = 6-15 cells (100X) (0-5/hpf); Monocytes 14 % (0-10); Neutrophil 58 % (42-75)
[2020-05-01 06:08] LABS: BUN (Urea Nitrogen) 14 mg/dL (8.9-20.6); Calc. Creatinine Clearance 258 mL/min (70-130); Calcium 8.6 mg/dL (7.8-10.44); Glucose 103 mg/dL (70-105); Magnesium 2.1 mg/dL (1.6-2.6)
[2020-05-01 06:17] LABS: Anion Gap 11 mmol/L (10-20); Carbon Dioxide 37 mmol/L (22-29); Chloride 92 mmol/L (98-107); Potassium 3.4 mmol/L (3.5-5.1); Sodium 137 mmol/L (136-145)
--- NOTE | 2020-05-01 06:37 | PDOC.FM ---
- Subjective Subjective: Reports sleeping poorly overnight, but continues to refuse BiPAP. Continued, but improved pain in BLE and scrotum. Improved scrotal swelling. - Objective MAR Reviewed: Yes Vital Signs & Weight: Vital Signs (12 hours) Temp Pulse Resp BP Pulse Ox 05/01/20 03:14 98.5 F 73 16 120/66 95 05/01/20 00:10 98.0 F 80 16 127/68 91 L 04/30/20 20:14 98.3 F 78 16 127/68 93 L Weight Admit Weight 245 kg Weight 245 kg I&O: 04/29/20 04/30/20 05/01/20 06:59 06:59 06:59 Intake Total 480 1560 1435 Output Total 3100 0 2049 Balance -262 -1989 - Result Diagrams: 05/01/20 05:24 05/01/20 05:24 Phys Exam - Physical Examination Constitutional: NAD HEENT: moist MMs Neck: supple Respiratory: no wheezing, clear to auscultation bilateral Cardiovascular: RRR Gastrointestinal: soft, positive bowel sounds edema markedly improved Neurological: non-focal Psychiatric: normal affect Deviation from normal: no active vesicles, rash in multiple body folds Dx/Plan - Plan Plan: AHRF likely 2/2 Obesity hypoventilation syndrome - likely undiagnosed COPD and PAIGE - PRN NC O2, patient is CO2 dependent, instructed nursing to keep saturations in low 90s - Home Dulera, incentive spirometer, Duonebs PRN - BiPAP provided, but refused to use it; continue to encourage patient to wear it while sleeping - consulted for [facility] vs. - encouraged to work with PT Sepsis 2/2 cellulitis - Patient was seen in hospital 02/2020 for severe LLE cellulitis. Was on IV abx inpatient and transitioned to Kefflex X 1 month then Penicillin VK X 6 months - Areas concerning for infection on LLE and over lower abdomen/pannus, infection appears to be improving - Tachycardia to 100s, tachypneic to upper 20s in ED; tachycardia resolved - Started on IV Clindamycin in ED, will continue and add Vanc, increased Clinda (04/20) to 900mg TID--> d/c Clinda on 04/21 and continue just on Vanc --> started on on 2 tabs Bactrim DS BID (last day of abx on 05/02), improving clinically - XR LLE: no osteo, suggestive of cellulitis - Sono LLE showed very superficial infected fluid collection 3.9x3.8cm; no need for surgery consult given its size and location BLE edema, scrotal edema - On PO Lasix at home for edema, will hold - will hold Lasix for now due to IKE (Cr: 1.38 > 1.21), net neg > 20 L - Nephrology, Dr. Cortes, consulted on 04/25 - s/p albumin, metolazone - acetazolamide - strict I/Os, daily weights -Urology placed sawyer -testicular US: echogenic focus in L upper testicular pole, radiology - may just be an engorged vessel in setting of swelling, Recommend f/u US when euvolemic -BNP WNL -Echo 02/2020 WNL -Urine pr/Cr .2g/day -RUQ sono showed likely hepatocellular disease and ascites, gallbladder thickening without gallstones -fluid restricted to 1500mL/day > increase to 2000 ml IKE, resolving - likely 2/2 to diuresis mentioned above - holding lasix Herpes Zoster - incidentally found - started on valacyclovir on 04/23, day 10/07 today Contraction alkalosis - secondary to diuresis and metabolic compensation for respiratory acidosis - patient needs to wear BiPAP in order to blow off CO2 - on acetazolamide Macrocytic Anemia - Folate, B12 WNL - denies alcohol use, TSH WNL - peripheral smear showed macrocytic anemia with differential including liver pathology and myelodysplastic syndrome Thrombocytopenia -aware -will continue to monitor. May be 2/2 Vancomycin vs. liver pathology Abdominal Pain - Constipation vs cellulitis - Bowel regimen with goal of 1-2 soft BM QD - RUQ sono showing ascites, likely hepatocellular disease. recommend CT given limited exam 2/2 body habitus. gallbladder thickening without gallstones - Hep C negative HTN - Home amlodipine held due to lower extremity edema Hematuria - urology consulted, outpatient f/u recommended Hypokalemia -aware, 40 meq daily, continue replacing as needed -at risk for hyperkalemia per nephro, will monitor closely Addendum - Attending - Attending Attestation Date/Time: 05/01/20 1109 I personally evaluated the patient and discussed the management with Dr. Cadet. I agree with the History, Examination, Assessment and Plan documented above with any addition or exceptions noted below. Increase lasix to 40 BID today as renal function stabilized today. I told him we are nearing the end of the care he needs in the hospital and he needs to plan to be discharged in the next few days. I discussed attempting to arranged [facility] care at a SNF for him but he says he does not want to go there as his family wont be able to visit him. He stated that his mother lives in an assisted living community in [facility] and has an extra room he could stay as long as he could pay for care takers. I told him that given his uninsured status, our options for placement are limited and he needs to weigh the risks of not seeing his family on his mental health vs his physical health and recovery from this hospital stay. his testicles are a little less edematous today. He has some irritation around the insertion site of his sawyer. will have nursing clean and provide some additional care. 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
[2020-05-01] MEDS ORDERED: Potassium Chloride 20 MEQ TAB PO SCH (06:45)
[2020-05-01] MEDS: Mometasone 200 MCG/Formoterol 5 MCG 120 PUFF INHALER INH SCH ×2 (07:43→18:20)
[2020-05-01] MEDS: Potassium Chloride 20 MEQ TAB PO SCH (08:59)
[2020-05-01] MEDS: AcetaZOLAMIDE 250 MG TAB PO SCH (08:59)
[2020-05-01] MEDS: Polyethylene Glycol 3350 17 GM Packet PO SCH (09:00)
[2020-05-01] MEDS: Lactinex Tablet PO SCH (09:00)
[2020-05-01] MEDS: Enoxaparin Sodium 60 MG/0.6 ML SYRINGE SC SCH ×2 (09:00→20:02)
[2020-05-01] MEDS: Sulfameth/Trimethoprim DS 800-160mg TAB PO SCH ×2 (09:00→20:02)
[2020-05-01] MEDS: Multivit, Therapeutic 1 TAB PO SCH (09:00)
[2020-05-01] MEDS: Aspirin 81 mg Enteric Coated Tablet PO SCH (09:00)
[2020-05-01] MEDS: Sucralfate 1 GM/10 ML UDCUP PO SCH ×4 (09:00→20:06)
[2020-05-01] MEDS ORDERED: Furosemide 40 MG/4 ML VIAL SLOW IVP SCH ×2 (09:00)
[2020-05-01] MEDS: Lidocaine 5% Patch TD SCH (09:01)
[2020-05-01] MEDS ORDERED: Simethicone Chewable 80 MG TAB PO SCH (17:30)
[2020-05-01] MEDS: Furosemide 40 MG/4 ML VIAL SLOW IVP SCH (20:03)
[2020-05-01] MEDS: Transdermal Patch Removal TOP SCH (20:04)
[2020-05-01] MEDS: hydrOXYzine 25 MG TAB PO PRN (22:22)
--- NOTE | 2020-05-02 06:04 | PDOC.FM ---
- Subjective Subjective: Mr. Abarca was sleeping comfortably this morning. He states he had some chest pressure last night that started when he was wearing his BiPAP and was worse when he coughed. He was only able to tolerate the BiPAP for ~1hr last night. - Objective Vital Signs & Weight: Vital Signs (12 hours) Temp Pulse Resp BP Pulse Ox 05/02/20 03:38 97.9 F 75 20 136/78 90 L 05/01/20 23:35 98.6 F 74 18 120/74 91 L 05/01/20 20:03 93 L 05/01/20 19:58 98.6 F 67 18 114/67 93 L Weight Admit Weight 245 kg Weight 227.25 kg I&O: 04/30/20 05/01/20 05/02/20 06:59 06:59 06:59 Intake Total 1560 1435 980 Output Total 3550 0 2495 Balance -1990 -615 -695 Result Diagrams: 05/02/20 05:08 05/01/20 05:24 Phys Exam - Physical Examination Constitutional: NAD Coarse breath sounds b/l Difficult to auscultate, likely 2/2 body habitus Gastrointestinal: soft Skin ttp, around bruising from lovenox injections Non-pitting edema of b/l LE, chronic skin changes b/l. Ttp Neurological: non-focal, moves all 4 limbs Psychiatric: normal affect, A&O x 3 Deviation from normal: Scrotum erythematous, edematous, mild discharge from anterior fold. -: Cellulitis significantly receded from outline Dx/Plan - Plan Plan: This is a 44M who was found to have AHRF 2/2 OHS and sepsis 2/2 cellulitis. AHRF likely 2/2 Obesity hypoventilation syndrome - suspect undiagnosed COPD and PAIGE are contributing - PRN NC O2, patient is O2 dependent, instructed nursing to keep saturations in upper 80s/low 90s - Home Dulera, incentive spirometer, Duonebs PRN - BiPAP provided, but pt resistant to using it; continue to encourage patient to wear it while sleeping - CM consulted for [facility] vs. - PT consulted Sepsis 2/2 cellulitis - Patient was seen in hospital 02/2020 for severe LLE cellulitis. Was on IV abx inpatient and transitioned to Kefflex X 1 month then Penicillin VK X 6 months - Areas concerning for infection on LLE and over lower abdomen/pannus, erythema receding - s/p Clina, Vanc, and Bactrim - Sono LLE showed very superficial infected fluid collection 3.9x3.8cm; no need for surgery consult given its size and location BLE edema, scrotal edema - BNP WNL. Echo 02/2020 WNL - Urine pr/Cr .2g/day - IV Lasix BID. Monitor Cr and hold if IKE * Hold home PO lasix - Nephrology, Dr. Cortes, consulted. s/p albumin, metolazone - acetazolamide - strict I/Os, daily weights. - Lobo placed by urology - testicular US: echogenic focus in L upper testicular pole that radiology thinks may just be an engorged vessel in setting of swelling * Recommend f/u US when euvolemic - fluid restricted to 2000 ml/d - discharge from anterior scrotum. Wound care consulted IKE, resolving - likely 2/2 to diuresis on admission, resolved - Cr trending up again today. Continue to monitor and hold lasix if it continues Herpes Zoster - incidentally found - s/p valacyclovir Contraction alkalosis - secondary to diuresis and metabolic compensation for respiratory acidosis - patient needs to wear BiPAP in order to blow off CO2 - on acetazolamide Macrocytic Anemia - Folate, B12, TSH WNL - denies alcohol use - peripheral smear showed macrocytic anemia with differential including liver pathology and myelodysplastic syndrome - RUQ sono showed likely hepatocellular disease and ascites, gallbladder thickening without gallstones Thrombocytopenia - May be 2/2 Vancomycin vs. liver pathology - will continue to monitor. Abdominal Pain - Constipation vs cellulitis - Hep C negative - Bowel regimen with goal of 1-2 soft BM QD - RUQ sono as above. * Recommend CT given limited exam 2/2 body habitus HTN - Home amlodipine held due to lower extremity edema - BPs have been normal throughout hospital stay. Continue to monitor Hematuria - urology consulted, outpatient f/u recommended Hypokalemia - 40 meq daily, continue replacing as needed - at risk for hyperkalemia per nephro - will monitor closely Dispo: admit to medical. Discharge pending [facility] vs SNF. Continue to monitor scrotal edema for discharge. IVF: SL Diet: HH-LS with 2L fluid restriction GI Ppx: None DVT Ppx: lovenox Code: Full PCP: SPENCER Irene Addendum - Attending - Attending Attestation Date/Time: 05/02/20 0440 I personally evaluated the patient and discussed the management with Dr. Ema Richardson. I agree with the History, Examination, Assessment and Plan documented above with any addition or exceptions noted below. Patient with multiple complaints this morning. He complains of pleuritic and MSK chest pain when he coughs. He complains of dyspnea that is overall stable. Continues to report nontolerance with Bipap that he desperately needs to use given his obesity. Continue to diurese, wean O2 as tolerated. If he does not choose to get out of bed and ambulate, his obesity is nearing a point that it will prove fatal.
[2020-05-02 06:31] LABS: Band 6 % (5-11); Eosinophils 7 % (0-10); Hemoglobin 11.8 g/dL (14.0-18.0); Lymphocytes 14 % (21-51); MDiff Complete? YES; Mean Corpuscular HGB CONC 32.5 g/dL (32.0-36.0); Mean Corpuscular Hemoglobin 35.4 pg (27.0-31.0); Mean Platelet Volume 6.6 fL (7.4-10.4); Monocytes 9 % (0-10); Neutrophil 64 % (42-75); Platelet Count 125 thou/uL (130-400); RBC Distribution Width 13.3 % (11.5-14.5); Red Blood Cell (RBC) Count 3.32 mill/uL (4.70-6.10); White Blood Cell (WBC) Count 6.7 thou/uL (4.8-10.8)
[2020-05-02] MEDS: Mometasone 200 MCG/Formoterol 5 MCG 120 PUFF INHALER INH SCH ×2 (08:17→18:25)
[2020-05-02] MEDS ORDERED: GUAIFENESIN SF SOLN 200 MG/10 ML UDCUP PO PRN (09:31)
[2020-05-02] MEDS: Sucralfate 1 GM/10 ML UDCUP PO SCH ×4 (10:00→20:28)
[2020-05-02] MEDS: AcetaZOLAMIDE 250 MG TAB PO SCH (10:01)
[2020-05-02] MEDS: Aspirin 81 mg Enteric Coated Tablet PO SCH (10:01)
[2020-05-02] MEDS: Furosemide 40 MG/4 ML VIAL SLOW IVP SCH ×2 (10:02→20:28)
[2020-05-02] MEDS: Potassium Chloride 20 MEQ TAB PO SCH (10:02)
[2020-05-02] MEDS: Enoxaparin Sodium 60 MG/0.6 ML SYRINGE SC SCH ×2 (10:02→20:38)
[2020-05-02] MEDS: Sulfameth/Trimethoprim DS 800-160mg TAB PO SCH ×2 (10:02→20:27)
[2020-05-02] MEDS: Multivit, Therapeutic 1 TAB PO SCH (10:03)
[2020-05-02] MEDS: Lidocaine 5% Patch TD SCH (10:03)
[2020-05-02] MEDS: Polyethylene Glycol 3350 17 GM Packet PO SCH (10:03)
[2020-05-02] MEDS: Lactinex Tablet PO SCH (10:03)
[2020-05-02] MEDS: Transdermal Patch Removal TOP SCH (21:03)
[2020-05-02] MEDS: hydrOXYzine 25 MG TAB PO PRN (22:23)
--- NOTE | 2020-05-03 06:40 | PDOC.FM ---
- Subjective Subjective: Mr. Abarca is doing well this morning. He says he was able to wear his BiPAP last night for what he thinks was 2-3hrs before waking in a panic. He is agreeable to continuing to try wearing at night as he gets used to it. He is wondering about the ability to live with his mom, although he would need to set up insurance or something to have someone help take care of him. He would prefer this over "going to a facility". He continues to complain of pain in his b/l LE and scrotum. He says his L pain hurts more than his R, and hurts worse with movement, but he is also complaining of tingling down his LLE. He states laying on his side to take pressure off his hip is difficult d/t the length of the sawyer catheter and feeling he can't breathe. - Objective Vital Signs & Weight: Vital Signs (12 hours) Temp Pulse Resp BP Pulse Ox 05/03/20 04:00 98.3 F 70 20 127/68 90 L 05/03/20 00:00 98.6 F 66 20 138/72 92 L 05/02/20 20:38 93 L 05/02/20 20:00 98.8 F 80 18 152/66 H 93 L Weight Admit Weight 245 kg Weight 227.93 kg I&O: 05/01/20 05/02/20 05/03/20 06:59 06:59 06:59 Intake Total 1435 1630 1060 Output Total 2050 2920 2600 Balance -237 -6859 -4055 Result Diagrams: 05/02/20 05:08 05/01/20 05:24 Phys Exam - Physical Examination Constitutional: NAD Neck: supple Respiratory: clear to auscultation bilateral Difficult to auscultate 2/2 body habitus Gastrointestinal: soft, no distention Nonpitting edema of BLE + chronic skin changes Neurological: non-focal, moves all 4 limbs Psychiatric: normal affect, A&O x 3 Deviation from normal: Erythema, edema of scrotum. Skin cracking on anterior aspect -: Chronic skin changes intertriginally Dx/Plan - Plan Plan: This is a 44M who was found to have AHRF 2/2 OHS and sepsis 2/2 cellulitis. AHRF likely 2/2 Obesity hypoventilation syndrome - suspect undiagnosed COPD and PAIGE are contributing - PRN NC O2, patient is O2 dependent, instructed nursing to keep saturations in upper 80s/low 90s - Home Dulera, incentive spirometer, Duonebs PRN - BiPAP provided, but pt resistant to using it; continue to encourage patient to wear it while sleeping - CM consulted for [facility] vs. . Will reach out about getting him set up with insurance so he can get someone to help take care of him, to see if that will be faster. - PT consulted Sepsis 2/2 cellulitis - Patient was seen in hospital 02/2020 for severe LLE cellulitis. Was on IV abx inpatient and transitioned to Kefflex X 1 month then Penicillin VK X 6 months - Areas concerning for infection on LLE and over lower abdomen/pannus, erythema receding - s/p Clina, Vanc, and Bactrim - Sono LLE showed very superficial infected fluid collection 3.9x3.8cm; no need for surgery consult given its size and location BLE edema, scrotal edema - BNP WNL. Echo 02/2020 WNL - Urine pr/Cr .2g/day - IV Lasix BID. Monitor Cr and hold if IKE * Hold home PO lasix - Nephrology, Dr. Cortes, consulted. s/p albumin, metolazone - acetazolamide - strict I/Os, daily weights. - Sawyer placed by urology - testicular US: echogenic focus in L upper testicular pole that radiology thinks may just be an engorged vessel in setting of swelling * Recommend f/u US when euvolemic - fluid restricted to 2000 ml/d - Wound care consulted for cracking of scrotal skin IKE, resolving - likely 2/2 to diuresis on admission, resolved - Cr trending up again today. Continue to monitor and hold lasix if it continues Herpes Zoster - incidentally found - s/p valacyclovir Contraction alkalosis - secondary to diuresis and metabolic compensation for respiratory acidosis - patient needs to wear BiPAP in order to blow off CO2 - on acetazolamide Macrocytic Anemia - Folate, B12, TSH WNL - denies alcohol use - peripheral smear showed macrocytic anemia with differential including liver pathology and myelodysplastic syndrome - RUQ sono showed likely hepatocellular disease and ascites, gallbladder thickening without gallstones Thrombocytopenia - May be 2/2 Vancomycin vs. liver pathology - will continue to monitor. Abdominal Pain - Constipation vs cellulitis - Hep C negative - Bowel regimen with goal of 1-2 soft BM QD - RUQ sono as above. * Recommend CT given limited exam 2/2 body habitus HTN - Home amlodipine held due to lower extremity edema - BPs have been normal throughout hospital stay. Continue to monitor Hematuria - urology consulted, outpatient f/u recommended Hypokalemia - 40 meq daily, continue replacing as needed - at risk for hyperkalemia per nephro - will monitor closely Dispo: admit to medical. Discharge pending [facility] vs SNF. Continue to emily tor scrotal edema for discharge and Cr for IKE. IVF: SL Diet: HH-LS with 2L fluid restriction GI Ppx: None DVT Ppx: lovenox Code: Full PCP: SPENCER Irene Addendum - Attending - Attending Attestation Date/Time: 05/03/20 3526 I personally evaluated the patient and discussed the management with Dr. Ema Richardson. I agree with the History, Examination, Assessment and Plan documented above with any addition or exceptions noted below. Patient stable and with his chronic complaints this morning. Continue diuresis, Bipap QHS, and therapy assistance with his chronic deconditioning from his obesity. Needs bar tacker sewing machine placement.
[2020-05-03] MEDS: Enoxaparin Sodium 60 MG/0.6 ML SYRINGE SC SCH ×2 (08:26→20:10)
[2020-05-03] MEDS: Polyethylene Glycol 3350 17 GM Packet PO SCH (08:27)
[2020-05-03] MEDS: Furosemide 40 MG/4 ML VIAL SLOW IVP SCH ×2 (08:27→20:09)
[2020-05-03] MEDS: Lactinex Tablet PO SCH (08:28)
[2020-05-03] MEDS: Multivit, Therapeutic 1 TAB PO SCH (08:29)
[2020-05-03] MEDS: Aspirin 81 mg Enteric Coated Tablet PO SCH (08:29)
[2020-05-03] MEDS: AcetaZOLAMIDE 250 MG TAB PO SCH (08:29)
[2020-05-03] MEDS: Potassium Chloride 20 MEQ TAB PO SCH (08:30)
[2020-05-03] MEDS: Sulfameth/Trimethoprim DS 800-160mg TAB PO SCH ×2 (08:30→20:10)
[2020-05-03] MEDS: Lidocaine 5% Patch TD SCH (08:30)
[2020-05-03] MEDS: Mometasone 200 MCG/Formoterol 5 MCG 120 PUFF INHALER INH SCH ×2 (08:39→21:48)
[2020-05-03] MEDS: Sucralfate 1 GM/10 ML UDCUP PO SCH ×4 (10:27→20:10)
[2020-05-03 12:09] LABS: Band 2 % (5-11); Eosinophils 2 % (0-10); Hemoglobin 11.9 g/dL (14.0-18.0); Lymphocytes 26 % (21-51); MDiff Complete? YES; Mean Corpuscular HGB CONC 32.6 g/dL (32.0-36.0); Mean Corpuscular Hemoglobin 35.2 pg (27.0-31.0); Mean Platelet Volume 7.4 fL (7.4-10.4); Monocytes 11 % (0-10); Neutrophil 59 % (42-75); Platelet Count 140 thou/uL (130-400); RBC Distribution Width 13.9 % (11.5-14.5); Red Blood Cell (RBC) Count 3.39 mill/uL (4.70-6.10); White Blood Cell (WBC) Count 7.7 thou/uL (4.8-10.8)
[2020-05-03 12:11] LABS: Anion Gap 10 mmol/L (10-20); BUN (Urea Nitrogen) 14 mg/dL (8.9-20.6); Calc. Creatinine Clearance 209 mL/min (70-130); Calcium 8.2 mg/dL (7.8-10.44); Carbon Dioxide 32 mmol/L (22-29); Chloride 95 mmol/L (98-107); Glucose 100 mg/dL (70-105); Potassium 3.6 mmol/L (3.5-5.1); Sodium 133 mmol/L (136-145)
[2020-05-03] MEDS: Transdermal Patch Removal TOP SCH (20:10)
[2020-05-03] MEDS: hydrOXYzine 25 MG TAB PO PRN (22:09)
--- NOTE | 2020-05-04 06:01 | PDOC.FM ---
- Subjective Subjective: Patient continues to have his normal complaints of LE pain and scrotal pain. Reports bleeding from his sawyer following PT yesterday. The bleeding has since stopped. Reports irritation from cough. Attempted to wear BiPAP overnight until he became agitated. - Objective MAR Reviewed: Yes Vital Signs & Weight: Vital Signs (12 hours) Temp Pulse Resp BP BP Pulse Ox 05/04/20 04:00 98.7 F 79 20 148/81 H 94 L 05/03/20 22:56 69 20 125/69 92 L 05/03/20 20:15 92 L 05/03/20 20:07 98.6 F 72 18 137/75 92 L Weight Admit Weight 245 kg Weight 227.817 kg I&O: 05/02/20 05/03/20 05/04/20 06:59 06:59 06:59 Intake Total 1630 1060 1760 Output Total 2920 2600 2200 Balance -1290 -1540 -440 Result Diagrams: 05/04/20 06:32 05/04/20 06:32 Phys Exam - Physical Examination Constitutional: NAD HEENT: moist MMs Respiratory: no wheezing, clear to auscultation bilateral Cardiovascular: RRR Gastrointestinal: soft, positive bowel sounds nonpitting edema of BLE with chronic skin changes Neurological: non-focal Psychiatric: normal affect Deviation from normal: edema and erythema of scrotum, dried blood noted around sawyer Dx/Plan - Plan Plan: This is a 44M who was found to have AHRF 2/2 OHS and sepsis 2/2 cellulitis. AHRF likely 2/2 Obesity hypoventilation syndrome - suspect undiagnosed COPD and PAIGE are contributing - PRN NC O2, patient is CO2 dependent, instructed nursing to keep saturations in upper 80s/low 90s - Home Dulera, incentive spirometer, Duonebs PRN - BiPAP provided, but pt resistant to using it; continue to encourage patient to wear it while sleeping - CM consulted for [facility] vs. . - PT consulted Sepsis 2/2 cellulitis - Patient was seen in hospital 02/2020 for severe LLE cellulitis. Was on IV abx inpatient and transitioned to Kefflex X 1 month then Penicillin VK X 6 months - Areas concerning for infection on LLE and over lower abdomen/pannus, erythema receding - s/p Clina, Vanc, and Bactrim - Sono LLE showed very superficial infected fluid collection 3.9x3.8cm; no need for surgery consult given its size and location BLE edema, scrotal edema - BNP WNL. Echo 02/2020 WNL - Urine pr/Cr .2g/day - IV Lasix BID. Monitor Cr and hold if IKE; switched to PO lasix on 05/04 - Nephrology, Dr. Cortes, consulted. s/p albumin, metolazone - acetazolamide - strict I/Os, daily weights. - Sawyer placed by urology - testicular US: echogenic focus in L upper testicular pole that radiology thinks may just be an engorged vessel in setting of swelling * Recommend f/u US when euvolemic - fluid restricted to 2000 ml/d - Wound care consulted for cracking of scrotal skin: keep area dry and clean, no open areas IKE - likely 2/2 to diuresis - Cr trending up again today, switched to PO lasix on 05/04 Herpes Zoster, resolved - incidentally found - s/p valacyclovir Contraction alkalosis - secondary to diuresis and metabolic compensation for respiratory acidosis - patient needs to wear BiPAP in order to blow off CO2 - on acetazolamide Macrocytic Anemia - Folate, B12, TSH WNL - denies alcohol use - peripheral smear showed macrocytic anemia with differential including liver pathology and myelodysplastic syndrome - RUQ sono showed likely hepatocellular disease and ascites, gallbladder thickening without gallstones Thrombocytopenia, improved - May be 2/2 liver pathology vs. Vanc - will continue to monitor. Abdominal Pain - Constipation vs cellulitis - Hep C negative - Bowel regimen with goal of 1-2 soft BM QD - RUQ sono as above. * Recommend CT given limited exam 2/2 body habitus HTN - Home amlodipine held due to lower extremity edema - BPs have been normal throughout hospital stay. Continue to monitor Hematuria - urology consulted, outpatient f/u recommended Hypokalemia - 40 meq daily, continue replacing as needed - at risk for hyperkalemia per nephro - will monitor closely
[2020-05-04] MEDS: Mometasone 200 MCG/Formoterol 5 MCG 120 PUFF INHALER INH SCH ×2 (07:06→18:11)
[2020-05-04 07:31] LABS: Hemoglobin 12.1 g/dL (14.0-18.0); Mean Corpuscular HGB CONC 32.2 g/dL (32.0-36.0); Mean Corpuscular Hemoglobin 34.9 pg (27.0-31.0); Mean Platelet Volume 7.2 fL (7.4-10.4); Platelet Count 135 thou/uL (130-400); Red Blood Cell (RBC) Count 3.45 mill/uL (4.70-6.10); White Blood Cell (WBC) Count 6.4 thou/uL (4.8-10.8)
[2020-05-04 07:38] LABS: Anion Gap 11 mmol/L (10-20); BUN (Urea Nitrogen) 13 mg/dL (8.9-20.6); Calc. Creatinine Clearance 212 mL/min (70-130); Calcium 8.2 mg/dL (7.8-10.44); Carbon Dioxide 30 mmol/L (22-29); Chloride 95 mmol/L (98-107); Glucose 103 mg/dL (70-105); Potassium 3.5 mmol/L (3.5-5.1); Sodium 132 mmol/L (136-145)
[2020-05-04] MEDS: Polyethylene Glycol 3350 17 GM Packet PO SCH (08:15)
[2020-05-04] MEDS: Potassium Chloride 20 MEQ TAB PO SCH (08:16)
[2020-05-04] MEDS: Lactinex Tablet PO SCH (08:17)
[2020-05-04] MEDS: Multivit, Therapeutic 1 TAB PO SCH (08:17)
[2020-05-04] MEDS: Sulfameth/Trimethoprim DS 800-160mg TAB PO SCH ×2 (08:17→19:49)
[2020-05-04] MEDS: Enoxaparin Sodium 60 MG/0.6 ML SYRINGE SC SCH ×2 (08:17→19:48)
[2020-05-04] MEDS: Aspirin 81 mg Enteric Coated Tablet PO SCH (08:17)
[2020-05-04] MEDS: Furosemide 40 MG/4 ML VIAL SLOW IVP SCH (08:18)
[2020-05-04] MEDS: AcetaZOLAMIDE 250 MG TAB PO SCH (08:18)
[2020-05-04] MEDS: Lidocaine 5% Patch TD SCH (08:19)
[2020-05-04 08:36] LABS: Band 1 % (5-11); Eosinophils 2 % (0-10); Lymphocytes 15 % (21-51); MDiff Complete? YES; Macrocytosis SLIGHT = 6-15 cells (100X) (0-5/hpf); Metamyelocyte 1 % (0-0); Monocytes 9 % (0-10); Neutrophil 69 % (42-75); Nucleated RBC 1 % (0); Platelet Morphology Comment Appears Adequate; Reactive Lymphocytes 1 % (0-10); Rouleaux Formation MODERATE= 6-15 cells (100X) (None Seen)
[2020-05-04] MEDS: Sucralfate 1 GM/10 ML UDCUP PO SCH ×4 (11:29→19:49)
[2020-05-04] MEDS: Transdermal Patch Removal TOP SCH (19:49)
[2020-05-04] MEDS ORDERED: Furosemide 20 MG TAB PO SCH (21:00)
[2020-05-04] MEDS: hydrOXYzine 25 MG TAB PO PRN (23:11)
[2020-05-05] MEDS: Furosemide 40 MG TAB PO SCH (05:39)
[2020-05-05 06:09] LABS: Band 3 % (5-11); Eosinophils 2 % (0-10); Hemoglobin 12.3 g/dL (14.0-18.0); Lymphocytes 29 % (21-51); MDiff Complete? YES; Macrocytosis SLIGHT = 6-15 cells (100X) (0-5/hpf); Mean Corpuscular HGB CONC 32.1 g/dL (32.0-36.0); Mean Corpuscular Hemoglobin 35.1 pg (27.0-31.0); Mean Platelet Volume 6.6 fL (7.4-10.4); Monocytes 10 % (0-10); Neutrophil 56 % (42-75); Platelet Count 122 thou/uL (130-400); RBC Distribution Width 13.6 % (11.5-14.5); Red Blood Cell (RBC) Count 3.49 mill/uL (4.70-6.10); White Blood Cell (WBC) Count 5.8 thou/uL (4.8-10.8)
--- NOTE | 2020-05-05 06:09 | PDOC.FM ---
- Subjective Subjective: Patient reports that he wore his BiPAP from 11pm to 4 am last night. He continues to have his typical pain in his scrotum, LE, and Abdomen. He reports a sore on his scrotum. - Objective MAR Reviewed: Yes Vital Signs & Weight: Vital Signs (12 hours) Temp Pulse Resp BP Pulse Ox 05/05/20 05:51 98.3 F 75 18 126/69 94 L 05/05/20 01:40 76 16 94 L 05/04/20 23:12 98.4 F 76 18 137/95 H 92 L 05/04/20 20:25 94 L 05/04/20 19:24 99.1 F 78 20 130/67 94 L 05/04/20 18:11 72 20 92 L Weight Admit Weight 245 kg Weight 225.889 kg I&O: 05/03/20 05/04/20 05/05/20 06:59 06:59 06:59 Intake Total 1060 1760 1990 Output Total 2600 2200 1350 Balance -1540 -440 640 Result Diagrams: 05/05/20 05:07 05/05/20 05:07 Phys Exam - Physical Examination Constitutional: NAD HEENT: moist MMs NC in place Respiratory: no wheezing, clear to auscultation bilateral Cardiovascular: RRR Gastrointestinal: soft, positive bowel sounds Musculoskeletal: no edema Neurological: non-focal, moves all 4 limbs Psychiatric: normal affect Deviation from normal: intertrigenous skin chanes, small ([id number])wound on anterior of scrotum, -: Dry skin on BLE Dx/Plan - Plan Plan: AHRF likely 2/2 Obesity hypoventilation syndrome - suspect undiagnosed COPD and PAIGE are contributing - PRN NC O2, patient is CO2 dependent, instructed nursing to keep saturations in upper 80s/low 90s - Home Dulera, incentive spirometer, Duonebs PRN - BiPAP provided, but pt resistant to using it; continue to encourage patient to wear it while sleeping - CM consulted for [facility] vs. . - PT consulted Sepsis 2/2 cellulitis - Patient was seen in hospital 02/2020 for severe LLE cellulitis. Was on IV abx inpatient and transitioned to Kefflex X 1 month then Penicillin VK X 6 months - Areas concerning for infection on LLE and over lower abdomen/pannus, erythema receding - s/p Clina, Vanc, and Bactrim with appropriate clinical response - Sono LLE showed very superficial infected fluid collection 3.9x3.8cm; no need for surgery consult given its size and location BLE edema, scrotal edema - BNP WNL. Echo 02/2020 WNL - Urine pr/Cr .2g/day - IV Lasix BID. Monitor Cr and hold if IEK; switched to PO lasix on 05/04 - Nephrology, Dr. Cortes, consulted. s/p albumin, metolazone - acetazolamide - strict I/Os, daily weights. - Lobo placed by urology - testicular US: echogenic focus in L upper testicular pole that radiology thinks may just be an engorged vessel in setting of swelling * Recommend f/u US when euvolemic - fluid restricted to 2000 ml/d - Wound care consulted for cracking of scrotal skin: keep area dry and clean - small ~[id number] wound on anterior of scrotum, barrier cream ordered, wound care consulted for treatment IKE - likely 2/2 to diuresis - Cr: 1.38, switched to PO lasix on 05/04 Herpes Zoster, resolved - incidentally found - s/p valacyclovir Contraction alkalosis, improving - secondary to diuresis and metabolic compensation for respiratory acidosis - patient needs to wear BiPAP in order to expel CO2 - on acetazolamide Macrocytic Anemia - Folate, B12, TSH WNL - denies alcohol use - peripheral smear showed macrocytic anemia with differential including liver pathology and myelodysplastic syndrome - RUQ sono showed likely hepatocellular disease and ascites, gallbladder thickening without gallstones Thrombocytopenia, improved - May be 2/2 liver pathology vs. Vanc - will continue to monitor. Abdominal Pain - Constipation vs cellulitis - Hep C negative - Bowel regimen with goal of 1-2 soft BM QD - RUQ sono as above. * Recommend CT given limited exam 2/2 body habitus HTN - Home amlodipine held due to lower extremity edema - BPs have been normal throughout hospital stay. Continue to monitor Hematuria - urology consulted, outpatient f/u recommended Hypokalemia - 40 meq daily, continue replacing as needed - at risk for hyperkalemia per nephro - will monitor closely
[2020-05-05 06:52] LABS: Anion Gap 10 mmol/L (10-20); BUN (Urea Nitrogen) 13 mg/dL (8.9-20.6); Calc. Creatinine Clearance 214 mL/min (70-130); Calcium 8.2 mg/dL (7.8-10.44); Carbon Dioxide 30 mmol/L (22-29); Chloride 98 mmol/L (98-107); Glucose 82 mg/dL (70-105); Potassium 3.8 mmol/L (3.5-5.1); Sodium 134 mmol/L (136-145)
[2020-05-05] MEDS: Mometasone 200 MCG/Formoterol 5 MCG 120 PUFF INHALER INH SCH ×2 (08:19→18:35)
[2020-05-05] MEDS ORDERED: Hydrocerin (Eucerin) Cream 120 gm Jar TOP PRN (08:27)
[2020-05-05] MEDS: Sucralfate 1 GM/10 ML UDCUP PO SCH ×4 (09:04→20:31)
[2020-05-05] MEDS: Enoxaparin Sodium 60 MG/0.6 ML SYRINGE SC SCH ×2 (09:04→20:31)
[2020-05-05] MEDS: Aspirin 81 mg Enteric Coated Tablet PO SCH (09:05)
[2020-05-05] MEDS: Sulfameth/Trimethoprim DS 800-160mg TAB PO SCH ×2 (09:05→20:31)
[2020-05-05] MEDS: Polyethylene Glycol 3350 17 GM Packet PO SCH (09:06)
[2020-05-05] MEDS: Multivit, Therapeutic 1 TAB PO SCH (09:06)
[2020-05-05] MEDS: Lactinex Tablet PO SCH (09:06)
[2020-05-05] MEDS: Potassium Chloride 20 MEQ TAB PO SCH (09:07)
[2020-05-05] MEDS: AcetaZOLAMIDE 250 MG TAB PO SCH (09:10)
[2020-05-05] MEDS: Lidocaine 5% Patch TD SCH (11:39)
[2020-05-05] MEDS: Transdermal Patch Removal TOP SCH (20:30)
[2020-05-05] MEDS ORDERED: Ketorolac Tromethamine 30 MG/ML VIAL IM SCH (22:30)
[2020-05-05] MEDS: hydrOXYzine 25 MG TAB PO PRN (22:58)
[2020-05-06] MEDS: Furosemide 40 MG TAB PO SCH (06:45)
--- NOTE | 2020-05-06 07:55 | PDOC.FM ---
- Subjective Subjective: Patient had likely episode of MSK pain that resolved with toradol. Patient later awoke reporting chest pain. EKG and troponin were obtained at that time which were normal. This morning, patient reports that he believes he pulled a muscle trying to adjust himself in bed. He denied chest pain this morning. He was not wearing BiPAP or NC upon evaluation this morning. - Objective MAR Reviewed: Yes Vital Signs & Weight: Vital Signs (12 hours) Temp Pulse Resp BP BP Pulse Ox 05/06/20 07:51 97.9 F 74 20 147/74 H 93 L 05/05/20 22:59 98 F 71 18 127/77 90 L 05/05/20 20:27 98.2 F 82 18 118/65 92 L Weight Admit Weight 245 kg Weight 225.435 kg I&O: 05/05/20 05/06/20 05/07/20 06:59 06:59 06:59 Intake Total 1990 200 Output Total 1350 Balance 640 200 Result Diagrams: 05/06/20 05:23 05/05/20 05:07 Phys Exam - Physical Examination Constitutional: NAD HEENT: moist MMs Respiratory: no wheezing, clear to auscultation bilateral Cardiovascular: RRR Gastrointestinal: soft tender to palpation in epigastric region Musculoskeletal: no edema Deviation from normal: chronic intertriginous skin changes, dry skin of BLE Dx/Plan - Plan Plan: AHRF likely 2/2 Obesity hypoventilation syndrome - suspect undiagnosed COPD and PAIGE are contributing - PRN [place] O2, patient is O2 dependent, instructed nursing to keep saturations in upper 80s/low 90s - Dulera, incentive spirometer, Duonebs PRN - BiPAP provided, but pt resistant to using it; continue to encourage patient to wear it while sleeping - CM consulted for [facility] vs. , patient has yet to be approved, home O2 order placed - PT consulted Sepsis 2/2 cellulitis - Patient was seen in hospital 02/2020 for severe LLE cellulitis. Was on IV abx inpatient and transitioned to Kefflex X 1 month then Penicillin VK X 6 months - Areas concerning for infection on LLE and over lower abdomen/pannus, erythema receding - s/p Clina, Vanc, and Bactrim with appropriate clinical response - Sono LLE showed very superficial infected fluid collection 3.9x3.8cm; no need for surgery consult given its size and location - wound care has seen patient multiple times and has signed off BLE edema, scrotal edema - BNP WNL. Echo 02/2020 WNL - Urine pr/Cr .2g/day - IV Lasix BID. Monitor Cr and hold if IKE; switched to PO lasix on 05/04 (40 mg daily) - Nephrology, Dr. Cortes, consulted. s/p albumin, metolazone - acetazolamide - strict I/Os, daily weights. - Lobo placed by urology - testicular US: echogenic focus in L upper testicular pole that radiology thinks may just be an engorged vessel in setting of swelling * Recommend f/u US when euvolemic - fluid restricted to 2000 ml/d - Wound care consulted for cracking of scrotal skin: keep area dry and clean - small ~[id number] wound on anterior of scrotum, barrier cream ordered, wound care consulted for treatment IKE - likely 2/2 to diuresis - labs pending, switched to PO lasix on 05/04 Herpes Zoster, resolved - incidentally found - s/p valacyclovir Contraction alkalosis, improving - labs pending - secondary to diuresis and metabolic compensation for respiratory acidosis - patient needs to wear BiPAP in order to expel CO2 - on acetazolamide Macrocytic Anemia - Folate, B12, TSH WNL - denies alcohol use - peripheral smear showed macrocytic anemia with differential including liver pathology and myelodysplastic syndrome - RUQ sono showed likely hepatocellular disease and ascites, gallbladder thickening without gallstones Thrombocytopenia, improved - May be 2/2 liver pathology vs. Vanc - will continue to monitor. Abdominal Pain - Constipation vs cellulitis - Hep C negative - Bowel regimen with goal of 1-2 soft BM QD - RUQ sono as above. * Recommend CT given limited exam 2/2 body habitus HTN - Home amlodipine held due to lower extremity edema - BPs have been normal throughout hospital stay. Continue to monitor Hematuria - urology consulted, outpatient f/u recommended Hypokalemia - 40 meq daily, continue replacing as needed - will monitor closely
[2020-05-06] MEDS: Mometasone 200 MCG/Formoterol 5 MCG 120 PUFF INHALER INH SCH ×2 (08:02→18:24)
[2020-05-06 08:12] LABS: Troponin I Less than 0.010 ng/mL (< 0.028)
[2020-05-06 08:37] LABS: Hemoglobin 11.9 g/dL (14.0-18.0); Mean Corpuscular HGB CONC 32.8 g/dL (32.0-36.0); Mean Corpuscular Hemoglobin 35.4 pg (27.0-31.0); Mean Platelet Volume 7.6 fL (7.4-10.4); Platelet Count 120 thou/uL (130-400); RBC Distribution Width 13.6 % (11.5-14.5); Red Blood Cell (RBC) Count 3.36 mill/uL (4.70-6.10); White Blood Cell (WBC) Count 6.8 thou/uL (4.8-10.8)
[2020-05-06 09:35] LABS: Band 4 % (5-11); Eosinophils 4 % (0-10); Lymphocytes 24 % (21-51); MDiff Complete? YES; Macrocytosis SLIGHT = 6-15 cells (100X) (0-5/hpf); Monocytes 7 % (0-10); Neutrophil 61 % (42-75); Platelet Morphology Comment Appears Decreased; Polychromasia SLIGHT = 2-3 cells (100X) (0-2/hpf); Rouleaux Formation SLIGHT = 1-5 cells (100X) (None Seen)
[2020-05-06] MEDS: Lactinex Tablet PO SCH (09:41)
[2020-05-06] MEDS: Multivit, Therapeutic 1 TAB PO SCH (09:41)
[2020-05-06] MEDS: Aspirin 81 mg Enteric Coated Tablet PO SCH (09:41)
[2020-05-06] MEDS: Potassium Chloride 20 MEQ TAB PO SCH (09:43)
[2020-05-06] MEDS: Enoxaparin Sodium 60 MG/0.6 ML SYRINGE SC SCH ×2 (09:44→20:10)
[2020-05-06] MEDS: Sucralfate 1 GM/10 ML UDCUP PO SCH ×3 (09:45→20:11)
[2020-05-06] MEDS: Polyethylene Glycol 3350 17 GM Packet PO SCH (09:45)
[2020-05-06] MEDS: Lidocaine 5% Patch TD SCH (09:45)
[2020-05-06] MEDS: AcetaZOLAMIDE 250 MG TAB PO SCH (09:47)
[2020-05-06] MEDS: Sulfameth/Trimethoprim DS 800-160mg TAB PO SCH (09:51)
[2020-05-06 15:39] LABS: Anion Gap 14 mmol/L (10-20); BUN (Urea Nitrogen) 15 mg/dL (8.9-20.6); Calc. Creatinine Clearance 209 mL/min (70-130); Calcium 8.2 mg/dL (7.8-10.44); Carbon Dioxide 24 mmol/L (22-29); Chloride 98 mmol/L (98-107); Glucose 81 mg/dL (70-105); Potassium 4.7 mmol/L (3.5-5.1); Sodium 131 mmol/L (136-145)
[2020-05-06] MEDS: Transdermal Patch Removal TOP SCH (20:06)
--- NOTE | 2020-05-07 05:53 | PDOC.FM ---
- Subjective Subjective: Patient sleeping comfortably. Denies any questions or concerns. Currently working on getting patient home O2. - Objective MAR Reviewed: Yes Vital Signs & Weight: Vital Signs (12 hours) Temp Pulse Resp BP Pulse Ox 05/07/20 03:26 98.3 F 84 18 122/65 96 05/06/20 23:20 98.3 F 91 18 135/72 92 L 05/06/20 19:43 98.1 F 85 18 148/78 H 92 L Weight Admit Weight 245 kg Weight 225.435 kg I&O: 05/05/20 05/06/20 05/07/20 06:59 06:59 06:59 Intake Total 1990 200 480 Output Total 1350 400 Balance 640 200 80 Result Diagrams: 05/07/20 05:54 05/07/20 05:54 Phys Exam - Physical Examination Constitutional: NAD NC Respiratory: no wheezing, clear to auscultation bilateral Cardiovascular: RRR Gastrointestinal: positive bowel sounds Neurological: moves all 4 limbs Psychiatric: normal affect Dx/Plan - Plan Plan: AHRF likely 2/2 Obesity hypoventilation syndrome - suspect undiagnosed COPD and PAIGE are contributing - PRN NC O2, patient is O2 dependent, instructed nursing to keep saturations in upper 80s/low 90s - Dulera, incentive spirometer, Duonebs PRN - BiPAP provided, but pt resistant to using it; continue to encourage patient to wear it while sleeping - CM consulted for [facility] vs. , patient has yet to be approved, home O2 order placed - PT consulted Sepsis 2/2 cellulitis - Patient was seen in hospital 02/2020 for severe LLE cellulitis. Was on IV abx inpatient and transitioned to Kefflex X 1 month then Penicillin VK X 6 months - Areas concerning for infection on LLE and over lower abdomen/pannus, erythema receding - s/p Clina, Vanc, and Bactrim with appropriate clinical response - Sono LLE:very superficial infected fluid collection 3.9x3.8cm - wound care has seen patient multiple times and has signed off BLE edema, scrotal edema - BNP WNL. Echo 02/2020 WNL - Urine pr/Cr .2g/day - IV Lasix BID. Monitor Cr and hold if IKE; switched to PO lasix on 05/04 (40 mg daily) - Nephrology, Dr. Vasudev, consulted. s/p albumin, metolazone - acetazolamide - strict I/Os, daily weights. - Lobo DC'd on 05/06 in preparation of going home - testicular US: echogenic focus in L upper testicular pole that radiology thinks may just be an engorged vessel in setting of swelling * Recommend f/u US when euvolemic - fluid restricted to 2000 ml/d - Wound care consulted for cracking of scrotal skin: keep area dry and clean - small ~[id number] wound on anterior of scrotum, barrier cream ordered, wound care consulted for treatment IKE - likely 2/2 to diuresis - labs pending, switched to PO lasix on 05/04 Herpes Zoster, resolved - s/p valacyclovir Contraction alkalosis, improving - labs pending - secondary to diuresis and metabolic compensation for respiratory acidosis - patient needs to wear BiPAP in order to expel CO2 - on acetazolamide Macrocytic Anemia - Folate, B12, TSH WNL - denies alcohol use - peripheral smear showed macrocytic anemia with differential including liver pathology and myelodysplastic syndrome - RUQ sono showed likely hepatocellular disease and ascites, gallbladder thickening without gallstones Thrombocytopenia, improved - May be 2/2 liver pathology vs. Vanc - will continue to monitor. Abdominal Pain - Constipation vs cellulitis - Hep C negative - Bowel regimen with goal of 1-2 soft BM QD - RUQ sono as above. * Recommend CT given limited exam 2/2 body habitus HTN - Home amlodipine held due to lower extremity edema - BPs have been normal throughout hospital stay. Continue to monitor Hematuria - urology consulted, outpatient f/u recommended Hypokalemia - 40 meq daily, continue replacing as needed - will monitor closely Dispo: patient is medically stable for DC, pending isabel home O2
[2020-05-07] MEDS: Furosemide 40 MG TAB PO SCH (06:29)
[2020-05-07 06:32] LABS: Mean Corpuscular HGB CONC 31.2 g/dL (32.0-36.0); Mean Corpuscular Hemoglobin 33.9 pg (27.0-31.0); Mean Platelet Volume 6.9 fL (7.4-10.4); Platelet Count 120 thou/uL (130-400); RBC Distribution Width 13.8 % (11.5-14.5); Red Blood Cell (RBC) Count 3.53 mill/uL (4.70-6.10); White Blood Cell (WBC) Count 6.1 thou/uL (4.8-10.8)
[2020-05-07 07:55] LABS: Band 3 % (5-11); Eosinophils 2 % (0-10); Lymphocytes 16 % (21-51); MDiff Complete? YES; Monocytes 12 % (0-10); Neutrophil 67 % (42-75); Platelet Morphology Comment Appears Decreased; RBC Morphology Normal
[2020-05-07] MEDS: Mometasone 200 MCG/Formoterol 5 MCG 120 PUFF INHALER INH SCH ×2 (08:05→21:21)
[2020-05-07 08:14] LABS: Anion Gap 10 mmol/L (10-20); BUN (Urea Nitrogen) 13 mg/dL (8.9-20.6); Calc. Creatinine Clearance 221 mL/min (70-130); Calcium 8.1 mg/dL (7.8-10.44); Carbon Dioxide 26 mmol/L (22-29); Chloride 100 mmol/L (98-107); Glucose 91 mg/dL (70-105); Sodium 132 mmol/L (136-145)
[2020-05-07] MEDS: Lactinex Tablet PO SCH (09:27)
[2020-05-07] MEDS: Sucralfate 1 GM/10 ML UDCUP PO SCH ×4 (09:27→20:29)
[2020-05-07] MEDS: Multivit, Therapeutic 1 TAB PO SCH (09:27)
[2020-05-07] MEDS: Potassium Chloride 20 MEQ TAB PO SCH (09:28)
[2020-05-07] MEDS: Aspirin 81 mg Enteric Coated Tablet PO SCH (09:28)
[2020-05-07] MEDS: AcetaZOLAMIDE 250 MG TAB PO SCH (09:28)
[2020-05-07] MEDS: Enoxaparin Sodium 60 MG/0.6 ML SYRINGE SC SCH ×2 (09:29→20:29)
[2020-05-07] MEDS: Polyethylene Glycol 3350 17 GM Packet PO SCH (09:30)
[2020-05-07] MEDS: Lidocaine 5% Patch TD SCH (09:30)
[2020-05-07 11:12] VITALS: BMI 69.2
--- NOTE | 2020-05-07 13:25 | EKG ---
Test Reason : STAT Blood Pressure : / mmHG Vent. Rate : 074 BPM Atrial Rate : 074 BPM P-R Int : 174 ms QRS Dur : 104 ms QT Int : 420 ms P-R-T Axes : 052 048 047 degrees QTc Int : 466 ms Normal sinus rhythm Low voltage QRS Borderline ECG When compared with ECG of 17-APR-2020 23:31, (Unconfirmed) No significant change was found Confirmed by DR. Renny BARAHONA ([id number]) on 05/07/2020 1:25:24 PM Referred By: KYLE RICH Confirmed By:DR. Renny BARAHONA
[2020-05-07] MEDS: Transdermal Patch Removal TOP SCH (20:30)
[2020-05-07] MEDS: hydrOXYzine 25 MG TAB PO PRN (22:25)
--- NOTE | 2020-05-08 06:49 | PDOC.FM ---
- Subjective Subjective: Reports back pain this morning. Denies any other questions or concerns. Reports understanding of the importance of outpt f/u and compliance. - Objective MAR Reviewed: Yes Vital Signs & Weight: Vital Signs (12 hours) Temp Pulse Resp BP Pulse Ox 05/08/20 03:22 98.3 F 84 22 H 134/72 91 L 05/07/20 21:21 16 05/07/20 20:26 98.8 F 85 20 150/68 H 93 L 05/07/20 20:00 93 L Weight Admit Weight 245 kg Weight 225.435 kg I&O: 05/06/20 05/07/20 05/08/20 06:59 06:59 06:59 Intake Total 200 480 720 Output Total 400 Balance 200 80 720 Result Diagrams: 05/08/20 04:56 05/07/20 05:54 Phys Exam - Physical Examination Constitutional: NAD HEENT: moist MMs Respiratory: no wheezing, clear to auscultation bilateral Cardiovascular: RRR Gastrointestinal: soft, non-tender Neurological: non-focal, moves all 4 limbs Psychiatric: normal affect Dx/Plan - Plan Plan: AHRF likely 2/2 Obesity hypoventilation syndrome - suspect undiagnosed COPD and PAIGE are contributing - PRN NC O2, patient is O2 dependent, instructed nursing to keep saturations in upper 80s/low 90s - Dulera, incentive spirometer, Duonebs PRN - BiPAP provided, but pt resistant to using it; continue to encourage patient to wear it while sleeping - consulted for [facility] vs. , patient has yet to be approved; home O2 order and will be arriving this evening - PT has evaluated and treated Sepsis 2/2 cellulitis - Patient was seen in hospital 02/2020 for severe LLE cellulitis. Was on IV abx inpatient and transitioned to Kefflex X 1 month then Penicillin VK X 6 months - Areas concerning for infection on LLE and over lower abdomen/pannus, erythema receding - s/p Clina, Vanc, and Bactrim with appropriate clinical response - Sono LLE:very superficial infected fluid collection 3.9x3.8cm - wound care has seen patient multiple times and has signed off BLE edema, scrotal edema - BNP WNL. Echo 02/2020 WNL - Urine pr/Cr .2g/day - IV Lasix BID. Monitor Cr and hold if IKE; switched to PO lasix on 05/04 (40 mg daily) - Nephrology, Dr. Cortes, consulted. s/p albumin, metolazone - acetazolamide - strict I/Os, daily weights. - Yamil DC'd on 05/06 in preparation of going home - testicular US: echogenic focus in L upper testicular pole that radiology thinks may just be an engorged vessel in setting of swelling * Recommend f/u US when euvolemic - fluid restricted to 2000 ml/d - Wound care consulted for cracking of scrotal skin: keep area dry and clean - small ~[id number] wound on anterior of scrotum, barrier cream ordered, wound care consulted for treatment IKE - likely 2/2 to diuresis - labs pending, switched to PO lasix on 05/04 Herpes Zoster, resolved - s/p valacyclovir Contraction alkalosis, improving - labs pending - secondary to diuresis and metabolic compensation for respiratory acidosis - patient needs to wear BiPAP in order to expel CO2 - on acetazolamide Macrocytic Anemia - Folate, B12, TSH WNL - denies alcohol use - peripheral smear showed macrocytic anemia with differential including liver pathology and myelodysplastic syndrome - RUQ sono showed likely hepatocellular disease and ascites, gallbladder thickening without gallstones Thrombocytopenia, improved - May be 2/2 liver pathology vs. Vanc - will continue to monitor. Abdominal Pain - Constipation vs cellulitis - Hep C negative - Bowel regimen with goal of 1-2 soft BM QD - RUQ sono as above. * Recommend CT given limited exam 2/2 body habitus HTN - Home amlodipine held due to lower extremity edema - BPs have been normal throughout hospital stay. Continue to monitor Hematuria - urology consulted, outpatient f/u recommended Hypokalemia - 40 meq daily, continue replacing as needed - will monitor closely Dispo: will likely DC patient today, home O2 scheduled to be delivered before 5 pm
[2020-05-08 06:54] LABS: Band 3 % (5-11); Eosinophils 5 % (0-10); Hemoglobin 11.8 g/dL (14.0-18.0); Lymphocytes 12 % (21-51); MDiff Complete? YES; Mean Corpuscular Hemoglobin 34.9 pg (27.0-31.0); Mean Platelet Volume 7.7 fL (7.4-10.4); Monocytes 7 % (0-10); Neutrophil 73 % (42-75); Platelet Count 116 thou/uL (130-400); Platelet Morphology Comment Appears Decreased; RBC Distribution Width 13.8 % (11.5-14.5); Red Blood Cell (RBC) Count 3.37 mill/uL (4.70-6.10); White Blood Cell (WBC) Count 7.2 thou/uL (4.8-10.8)
[2020-05-08] MEDS: Mometasone 200 MCG/Formoterol 5 MCG 120 PUFF INHALER INH SCH (07:20)
[2020-05-08] MEDS: Lactinex Tablet PO SCH (08:15)
[2020-05-08] MEDS: Multivit, Therapeutic 1 TAB PO SCH (08:15)
[2020-05-08] MEDS: Furosemide 40 MG TAB PO SCH (08:15)
[2020-05-08] MEDS: Potassium Chloride 20 MEQ TAB PO SCH (08:15)
[2020-05-08] MEDS: Sucralfate 1 GM/10 ML UDCUP PO SCH ×2 (08:16→14:03)
[2020-05-08] MEDS: Aspirin 81 mg Enteric Coated Tablet PO SCH (08:16)
[2020-05-08] MEDS: Enoxaparin Sodium 60 MG/0.6 ML SYRINGE SC SCH (08:16)
[2020-05-08] MEDS: Lidocaine 5% Patch TD SCH (08:17)
[2020-05-08] MEDS: Polyethylene Glycol 3350 17 GM Packet PO SCH (08:17)
[2020-05-08] MEDS: AcetaZOLAMIDE 250 MG TAB PO SCH (09:44)
[2020-05-08] MEDS: Acetaminophen 325 MG TAB PO PRN (10:00)
[2020-05-08 10:34] LABS: Anion Gap 15 mmol/L (10-20); BUN (Urea Nitrogen) 14 mg/dL (8.9-20.6); Calc. Creatinine Clearance 215 mL/min (70-130); Calcium 8.3 mg/dL (7.8-10.44); Carbon Dioxide 21 mmol/L (22-29); Chloride 104 mmol/L (98-107); Glucose 127 mg/dL (70-105); Potassium 4.5 mmol/L (3.5-5.1); Sodium 135 mmol/L (136-145)
[2020-05-08 11:47] VITALS: BP 138/74; TEMP 98.3
[2020-05-08] MEDS ORDERED: Fosfomycin 3 GM/Packet PO SCH (14:30)
== END 2020-05-08 14:35 | disposition home or self-care (01) | DRG 871 ==
LOC: ERS 22:30 → SJJU 04-18 03:33 → OBSVTOIN 04-19 09:09
PROVIDERS: ADMIT Family Medicine; ATTEND Family Medicine
PROC: 0T9B80Z Drainage of Bladder with Drainage Device, Via Natural or Artificial Opening Endoscopic (ICD-10-PCS; 2020-04-19)
PROC: 5A09357 Assistance with Respiratory Ventilation, Less than 24 Consecutive Hours, Continuous Positive Airway Pressure (ICD-10-PCS; principal; 2020-04-23)
DX: A41.9 Sepsis, unspecified organism (principal); J96.01 Acute respiratory failure with hypoxia; E66.2 Morbid (severe) obesity with alveolar hypoventilation; Z20.822 Contact with and (suspected) exposure to COVID-19; Z23 Encounter for immunization; Z68.44 Body mass index [BMI] 60.0-69.9, adult; L03.116 Cellulitis of left lower limb; J98.11 Atelectasis; E87.3 Alkalosis; N17.9 Acute kidney failure, unspecified; R31.9 Hematuria, unspecified; N50.89 Other specified disorders of the male genital organs; D53.9 Nutritional anemia, unspecified; E65 Localized adiposity; N18.2 Chronic kidney disease, stage 2 (mild); B02.9 Zoster without complications; J44.9 Chronic obstructive pulmonary disease, unspecified; N43.3 Hydrocele, unspecified; I12.9 Hypertensive chronic kidney disease with stage 1 through stage 4 chronic kidney disease, or unspecified chronic kidney disease; D69.6 Thrombocytopenia, unspecified; E83.42 Hypomagnesemia; E87.6 Hypokalemia; E88.09 Other disorders of plasma-protein metabolism, not elsewhere classified; E87.5 Hyperkalemia; Z79.899 Other long term (current) drug therapy; Z87.891 Personal history of nicotine dependence; Z79.82 Long term (current) use of aspirin
CPT/HCPCS: 36415; 71045; 71046; 74018; 76705; 76870; 76999; 80048; 80053; 80202; 81003; 82565; 82570; 82607; 82728; 82746; 83036; 83540; 83550; 83605; 83735; 83880; 84100; 84156; 84443; 84484; 85007; 85025; 85027; 85060; 85520; 85610; 85652; 85730; 86140; 86803; 87040; 87635; 90471; 90662; 90732; 93005; 93010; 93976; 94640; 94664; 96365; 96366; 96367; 96375; 96376; G0008; G0009; G0378; J1650; J1885; J1940; J2270; J3010; J3370; J3475; J3480; J3490; J7030; J7050; J7620; P9047; U0003; U0005

== ENCOUNTER 2020-11-01 01:41 | Inpatient (IN) | payer SELFPAY ==
[2020-11-01 03:00] LABS: ALT (SGPT) 11 U/L (8-55); AST (SGOT) 26 U/L (5-34); Albumin 2.3 g/dL (3.5-5.0); Alkaline Phosphatase 145 U/L (40-110); Anion Gap 14 mmol/L (10-20); BUN (Urea Nitrogen) 29 mg/dL (8.9-20.6); Bilirubin, Total 2.4 mg/dL (0.2-1.2); Calc. Creatinine Clearance 0 mL/min (70-130); Calcium 7.9 mg/dL (7.8-10.44); Carbon Dioxide 28 mmol/L (22-29); Chloride 96 mmol/L (98-107); Globulin 5.4 g/dL (2.4-3.5); Glucose 134 mg/dL (70-105); Potassium 3.4 mmol/L (3.5-5.1); Protein, Total 7.7 g/dL (6.0-8.3); Sodium 135 mmol/L (136-145)
[2020-11-01 03:03] LABS: Hemoglobin 15.7 g/dL (14.0-18.0); Mean Corpuscular HGB CONC 34.5 g/dL (32.0-36.0); Mean Corpuscular Hemoglobin 35.6 pg (27.0-31.0); Mean Platelet Volume 6.9 fL (7.4-10.4); Platelet Count 182 thou/uL (130-400); RBC Distribution Width 12.4 % (11.5-14.5); Red Blood Cell (RBC) Count 4.41 mill/uL (4.70-6.10); White Blood Cell (WBC) Count 14.3 thou/uL (4.8-10.8)
[2020-11-01 03:26] LABS: Band 29 % (5-11); Lymphocytes 10 % (21-51); MDiff Complete? YES; Monocytes 14 % (0-10); Neutrophil 47 % (42-75)
[2020-11-01] MEDS ORDERED: Ondansetron PF 4 MG/2 ML Vial ONE (03:37)
[2020-11-01] MEDS ORDERED: cloNIDine 0.1 MG TAB ONE (04:43)
[2020-11-01] MEDS ORDERED: Cefepime 2 GM VIAL ONE (04:43)
[2020-11-01] MEDS ORDERED: VANCOMYCIN 2 GRAM/400 ML BAG 2 GM in Premix Bag 1 BAG IVPB SCH (05:00)
[2020-11-01] MEDS ORDERED: Cyclobenzaprine 10 MG TAB PO PRN (06:00)
[2020-11-01] MEDS ORDERED: metroNIDAZOLE 500 MG in Premix Bag 1 BAG IVPB SCH (06:00)
[2020-11-01 08:05] LABS: Lactic Acid 3.2 mmol/L (0.5-2.2)
[2020-11-01] MEDS ORDERED: Iopamidol-370 76% 500 ML 1 ML ONE (08:47)
[2020-11-01] MEDS ORDERED: Enoxaparin Sodium 40 MG/0.4 ML SYRINGE SC SCH (09:00)
[2020-11-01 09:05] VITALS: BMI 53.1
[2020-11-01] MEDS: Lactated Ringer's 1,000 ML IV SCH ×3 (09:20→18:23)
[2020-11-01] MEDS ORDERED: Potassium Chloride 20 MEQ TAB PO SCH (09:45)
[2020-11-01] MEDS ORDERED: Sodium Chloride 0.9% 1,000 ML IV SCH (09:45)
[2020-11-01] MEDS: Amlodipine 5 MG TAB PO SCH (10:16)
[2020-11-01] MEDS: Aspirin 81 mg Enteric Coated Tablet PO SCH (10:17)
[2020-11-01] MEDS: Potassium Chloride 20 MEQ TAB PO SCH (11:10)
[2020-11-01] MEDS: Escitalopram Oxalate 10 mg Tablet PO SCH (11:11)
[2020-11-01] MEDS: Furosemide 40 MG TAB PO SCH (11:47)
[2020-11-01] MEDS ORDERED: Pantoprazole 40 MG VIAL IVP SCH (12:00)
[2020-11-01] MEDS: metroNIDAZOLE 500 MG in Premix Bag 1 BAG IVPB SCH ×2 (12:34→18:22)
[2020-11-01 16:21] LABS: SARS-CoV-2 PCR by NAA Not Detected (NotDetected)
[2020-11-01 16:43] LABS: Hemoglobin 14.9 g/dL (14.0-18.0)
[2020-11-01 17:08] LABS: Potassium 4.7 mmol/L (3.5-5.1)
[2020-11-01 17:12] LABS: Phosphorus 4.2 mg/dL (2.3-4.7)
[2020-11-01 17:14] LABS: Magnesium 1.8 mg/dL (1.6-2.6)
[2020-11-01] MEDS: Pantoprazole 40 MG VIAL IVP SCH (20:28)
[2020-11-02] MEDS: Lactated Ringer's 1,000 ML IV SCH ×4 (01:43→20:53)
[2020-11-02] MEDS: metroNIDAZOLE 500 MG in Premix Bag 1 BAG IVPB SCH (02:37)
[2020-11-02 06:39] LABS: Anion Gap 12 mmol/L (10-20); BUN (Urea Nitrogen) 25 mg/dL (8.9-20.6); Calc. Creatinine Clearance 120 mL/min (70-130); Calcium 7.8 mg/dL (7.8-10.44); Carbon Dioxide 20 mmol/L (22-29); Chloride 102 mmol/L (98-107); Glucose 116 mg/dL (70-105); Potassium 3.3 mmol/L (3.5-5.1); Sodium 131 mmol/L (136-145)
[2020-11-02] MEDS ORDERED: Potassium Chloride 20 MEQ TAB PO SCH (07:15)
[2020-11-02 07:45] LABS: Band 26 % (5-11); Eosinophils 1 % (0-10); Hemoglobin 12.7 g/dL (14.0-18.0); Lymphocytes 17 % (21-51); MDiff Complete? YES; Macrocytosis SLIGHT = 6-15 cells (100X) (0-5/hpf); Mean Corpuscular Hemoglobin 36.2 pg (27.0-31.0); Mean Platelet Volume 6.5 fL (7.4-10.4); Monocytes 8 % (0-10); Neutrophil 48 % (42-75); Platelet Count 135 thou/uL (130-400); Platelet Morphology Comment Appears Adequate; Polychromasia SLIGHT = 2-3 cells (100X) (0-2/hpf); RBC Distribution Width 12.1 % (11.5-14.5); Red Blood Cell (RBC) Count 3.52 mill/uL (4.70-6.10); White Blood Cell (WBC) Count 13.8 thou/uL (4.8-10.8)
[2020-11-02 07:45] LABS: Lactic Acid 1.8 mmol/L (0.5-2.2)
[2020-11-02] MEDS: Pantoprazole 40 MG VIAL IVP SCH ×2 (08:09→20:46)
[2020-11-02] MEDS: Potassium Chloride 20 MEQ TAB PO SCH (08:09)
[2020-11-02] MEDS: Amlodipine 5 MG TAB PO SCH ×2 (08:10→08:19)
[2020-11-02] MEDS: Escitalopram Oxalate 10 mg Tablet PO SCH (08:10)
[2020-11-02] MEDS: Vancomycin HCl 25 MG/ML Oral PO SCH ×3 (08:10→20:46)
[2020-11-02] MEDS: Aspirin 81 mg Enteric Coated Tablet PO SCH ×2 (08:13→08:19)
[2020-11-02] MEDS ORDERED: Enoxaparin Sodium 60 MG/0.6 ML SYRINGE SC SCH (09:00)
[2020-11-02 10:47] LABS: INR-International Normal Ratio 1.6; PTT 38.6 sec (22.9-36.1)
[2020-11-02 11:03] LABS: ALT (SGPT) 12 U/L (8-55); AST (SGOT) 21 U/L (5-34); Albumin 1.9 g/dL (3.5-5.0); Alkaline Phosphatase 138 U/L (40-110); Bilirubin, Direct 0.9 mg/dL (0.1-0.3); Bilirubin, Total 1.5 mg/dL (0.2-1.2); Protein, Total 7.1 g/dL (6.0-8.3)
[2020-11-02 11:22] LABS: HBCM Index 0.08 S/CO (0-0.79); HBSAg Index 0.22 S/CO (0-0.99); Hep A IgM AB Non-Reactive (NonReactive); Hep A IgM S/CO 0.17 S/CO (0-0.79); Hep B Surf Ag Non-Reactive S/CO (NonReactive); Hep C IgG Ab Non-Reactive (NonReactive); Hep C Index 0.22 S/CO (0-0.79); Hepatitis B Core IgM Abs Non-Reactive (NonReactive)
[2020-11-02 12:04] LABS: Potassium 3.4 mmol/L (3.5-5.1)
[2020-11-02] MEDS ORDERED: Sodium Bicarbonate 2.5 MEQ/5 ML VIAL ONE (15:27)
[2020-11-02] MEDS ORDERED: Lidocaine 1% PF 5 ML VIAL ONE (15:28)
[2020-11-02 17:35] LABS: RBC Count-Automated (BF) 6055 /cu.mm; WBC/Nucleated-Auto (BF) 889 uL
[2020-11-02 17:53] LABS: BF Color Yellow; Body Fluid Source Ascites Body Fluid; Clarity Cloudy/Turbid (Clear); Tube # EDTA
[2020-11-02 17:55] LABS: BF Segmented Neutrophils 40 %; Cell Count Non Hematic 40 %; Lymphocytes 20 %
[2020-11-02 18:25] LABS: Iron 37 ug/dL (65-175); Iron Binding Capacity, Total 118 mcg/dL (261-462)
[2020-11-02] MEDS: Promethazine HCl 12.5 MG in Sodium Chloride 0.9% 50 ML IVPB PRN (21:36)
[2020-11-02] MEDS: cefTRIAXone\\ROCEPHIN 2 GM in Sodium Chloride 0.9% 100 ML IVPB SCH (23:37)
[2020-11-02] MEDS: Sodium Chloride 0.9% 1,000 ML IV SCH (23:37)
[2020-11-03] MEDS: Vancomycin HCl 25 MG/ML Oral PO SCH ×4 (01:50→20:40)
[2020-11-03] MEDS: Sodium Chloride 0.9% 1,000 ML IV SCH ×4 (07:00→23:50)
[2020-11-03] MEDS: Pantoprazole 40 MG VIAL IVP SCH (08:24)
[2020-11-03] MEDS: Aspirin 81 mg Enteric Coated Tablet PO SCH (08:24)
[2020-11-03] MEDS: Saccharomyces boulardii 250 MG CAP PO SCH ×2 (08:24→08:25)
[2020-11-03] MEDS: Escitalopram Oxalate 10 mg Tablet PO SCH (08:25)
[2020-11-03] MEDS: Amlodipine 5 MG TAB PO SCH (08:25)
[2020-11-03] MEDS: Potassium Chloride 20 MEQ TAB PO SCH (08:25)
[2020-11-03] MEDS ORDERED: Phytonadione 10 MG/ML AMP PO SCH (14:00)
[2020-11-03] MEDS: Phytonadione 5 MG TAB PO SCH (14:48)
[2020-11-03 17:38] LABS: #Eosinphils 0.1 thou/uL (0.0-0.7); #Lymphocytes 2.1 thou/uL (1.20-3.40); #Monocytes 1.3 thou/uL (0.11-0.59); #Neutrophils 9.7 thou/uL (1.40-6.50); %Basophils 0.3 % (0.0-1.0); %Eosinophils 0.9 % (0.0-10.0); %Monocytes 10.1 % (0.0-10.0); %Neutrophils 72.8 % (42.0-75.0); Hemoglobin 13.6 g/dL (14.0-18.0); Mean Corpuscular HGB CONC 32.7 g/dL (32.0-36.0); Mean Corpuscular Hemoglobin 33.7 pg (27.0-31.0); Mean Platelet Volume 6.5 fL (7.4-10.4); Platelet Count 131 thou/uL (130-400); RBC Distribution Width 12.2 % (11.5-14.5); Red Blood Cell (RBC) Count 4.02 mill/uL (4.70-6.10); White Blood Cell (WBC) Count 13.3 thou/uL (4.8-10.8)
[2020-11-03 17:50] LABS: INR-International Normal Ratio 1.6; PTT 28.1 sec (22.9-36.1); Prothrombin Time 18.9 sec (12.0-14.7)
[2020-11-03 18:06] LABS: ALT (SGPT) 10 U/L (8-55); AST (SGOT) 25 U/L (5-34); Albumin 1.9 g/dL (3.5-5.0); Alkaline Phosphatase 135 U/L (40-110); Anion Gap 13 mmol/L (10-20); BUN (Urea Nitrogen) 31 mg/dL (8.9-20.6); Bilirubin, Total 1.3 mg/dL (0.2-1.2); Calc. Creatinine Clearance 117 mL/min (70-130); Calcium 7.7 mg/dL (7.8-10.44); Carbon Dioxide 20 mmol/L (22-29); Chloride 103 mmol/L (98-107); Globulin 4.9 g/dL (2.4-3.5); Glucose 128 mg/dL (70-105); Potassium 3.6 mmol/L (3.5-5.1); Protein, Total 6.8 g/dL (6.0-8.3); Sodium 132 mmol/L (136-145)
[2020-11-03] MEDS: Promethazine HCl 12.5 MG in Sodium Chloride 0.9% 50 ML IVPB PRN (20:40)
[2020-11-03] MEDS: cefTRIAXone\\ROCEPHIN 2 GM in Sodium Chloride 0.9% 100 ML IVPB SCH (23:49)
[2020-11-04] MEDS: Vancomycin HCl 25 MG/ML Oral PO SCH ×4 (02:47→20:25)
[2020-11-04] MEDS: Escitalopram Oxalate 10 mg Tablet PO SCH (08:30)
[2020-11-04] MEDS: Furosemide 40 MG TAB PO SCH (08:30)
[2020-11-04] MEDS: Saccharomyces boulardii 250 MG CAP PO SCH (08:31)
[2020-11-04] MEDS: Amlodipine 5 MG TAB PO SCH (08:31)
[2020-11-04] MEDS: Aspirin 81 mg Enteric Coated Tablet PO SCH (08:31)
[2020-11-04] MEDS: Potassium Chloride 20 MEQ TAB PO SCH (08:31)
[2020-11-04] MEDS: Sodium Chloride 0.9% 1,000 ML IV SCH ×3 (08:32→17:01)
[2020-11-04] MEDS: Diclofenac 1% 100 GM GEL TP SCH ×3 (12:28→20:24)
[2020-11-04] MEDS: Phytonadione 5 MG TAB PO SCH (13:49)
[2020-11-04 15:17] LABS: Creatinine, Urine 272.6 mg/dL (63-166)
[2020-11-04 16:55] LABS: #Basophils 0.1 thou/uL (0.0-0.2); #Eosinphils 0.2 thou/uL (0.0-0.7); #Lymphocytes 3.4 thou/uL (1.20-3.40); #Monocytes 1.7 thou/uL (0.11-0.59); #Neutrophils 9.8 thou/uL (1.40-6.50); %Basophils 0.5 % (0.0-1.0); %Eosinophils 1.1 % (0.0-10.0); %Lymphocytes 22.6 % (21.0-51.0); %Monocytes 11.2 % (0.0-10.0); %Neutrophils 64.6 % (42.0-75.0); Hemoglobin 14.6 g/dL (14.0-18.0); Mean Corpuscular HGB CONC 33.1 g/dL (32.0-36.0); Mean Corpuscular Hemoglobin 34.5 pg (27.0-31.0); RBC Distribution Width 12.3 % (11.5-14.5); Red Blood Cell (RBC) Count 4.22 mill/uL (4.70-6.10); White Blood Cell (WBC) Count 15.1 thou/uL (4.8-10.8)
[2020-11-04 17:20] LABS: EliA Vaculitis New Method **** NEW METHOD ****; Mitochondrial Ab 1.5 U/mL (<4 Negative)
[2020-11-04 17:30] LABS: ALT (SGPT) 10 U/L (8-55); AST (SGOT) 24 U/L (5-34); Albumin 1.7 g/dL (3.5-5.0); Alkaline Phosphatase 118 U/L (40-110); Anion Gap 14 mmol/L (10-20); BUN (Urea Nitrogen) 36 mg/dL (8.9-20.6); Bilirubin, Total 1.4 mg/dL (0.2-1.2); Calc. Creatinine Clearance 78 mL/min (70-130); Calcium 7.5 mg/dL (7.8-10.44); Carbon Dioxide 18 mmol/L (22-29); Chloride 105 mmol/L (98-107); Globulin 4.5 g/dL (2.4-3.5); Glucose 124 mg/dL (70-105); Potassium 3.9 mmol/L (3.5-5.1); Protein, Total 6.2 g/dL (6.0-8.3); Sodium 133 mmol/L (136-145)
[2020-11-04 17:45] LABS: MDiff Complete? YES; Macrocytosis SLIGHT = 6-15 cells (100X) (0-5/hpf); Mean Platelet Volume 6.3 fL (7.4-10.4); Platelet Count 116 thou/uL (130-400); Platelet Morphology Comment Appears Decreased; Polychromasia MODERATE = 3-4 cells (100X) (0-2/hpf)
[2020-11-04] MEDS: cefTRIAXone\\ROCEPHIN 2 GM in Sodium Chloride 0.9% 100 ML IVPB SCH (23:22)
[2020-11-05] MEDS: Sodium Chloride 0.9% 1,000 ML IV SCH ×4 (01:17→20:34)
[2020-11-05] MEDS: Vancomycin HCl 25 MG/ML Oral PO SCH ×4 (01:17→20:33)
[2020-11-05 06:56] LABS: INR-International Normal Ratio 1.7; PTT 36.2 sec (22.9-36.1); Prothrombin Time 19.8 sec (12.0-14.7)
[2020-11-05 07:02] LABS: ALT (SGPT) 9 U/L (8-55); AST (SGOT) 26 U/L (5-34); Albumin 1.7 g/dL (3.5-5.0); Alkaline Phosphatase 116 U/L (40-110); Anion Gap 10 mmol/L (10-20); BUN (Urea Nitrogen) 40 mg/dL (8.9-20.6); Bilirubin, Total 1.2 mg/dL (0.2-1.2); Calc. Creatinine Clearance 69 mL/min (70-130); Calcium 7.3 mg/dL (7.8-10.44); Carbon Dioxide 21 mmol/L (22-29); Chloride 105 mmol/L (98-107); Globulin 4.1 g/dL (2.4-3.5); Glucose 90 mg/dL (70-105); Potassium 3.4 mmol/L (3.5-5.1); Protein, Total 5.8 g/dL (6.0-8.3); Sodium 133 mmol/L (136-145)
[2020-11-05] MEDS: Escitalopram Oxalate 10 mg Tablet PO SCH ×2 (07:51→07:53)
[2020-11-05] MEDS: Aspirin 81 mg Enteric Coated Tablet PO SCH (07:51)
[2020-11-05] MEDS: Furosemide 40 MG TAB PO SCH (07:51)
[2020-11-05] MEDS: Saccharomyces boulardii 250 MG CAP PO SCH (07:51)
[2020-11-05] MEDS: Amlodipine 5 MG TAB PO SCH (07:52)
[2020-11-05] MEDS: Potassium Chloride 20 MEQ TAB PO SCH (07:52)
[2020-11-05] MEDS: Diclofenac 1% 100 GM GEL TP SCH ×4 (07:53→20:34)
[2020-11-05 08:04] LABS: #Eosinphils 0.3 thou/uL (0.0-0.7); #Lymphocytes 3.6 thou/uL (1.20-3.40); #Monocytes 1.7 thou/uL (0.11-0.59); #Neutrophils 8.7 thou/uL (1.40-6.50); %Eosinophils 2.4 % (0.0-10.0); %Lymphocytes 25.1 % (21.0-51.0); %Neutrophils 60.5 % (42.0-75.0); Hemoglobin 12.1 g/dL (14.0-18.0); MDiff Complete? YES; Macrocytosis SLIGHT = 6-15 cells (100X) (0-5/hpf); Mean Corpuscular HGB CONC 32.5 g/dL (32.0-36.0); Mean Platelet Volume 6.4 fL (7.4-10.4); Platelet Count 121 thou/uL (130-400); Platelet Morphology Comment Appears Decreased; Polychromasia SLIGHT = 2-3 cells (100X) (0-2/hpf); RBC Distribution Width 12.4 % (11.5-14.5); Red Blood Cell (RBC) Count 3.54 mill/uL (4.70-6.10); White Blood Cell (WBC) Count 14.3 thou/uL (4.8-10.8)
[2020-11-05] MEDS: Ondansetron PF 4 MG/2 ML Vial IVP PRN ×2 (11:02→17:35)
[2020-11-05] MEDS: Phytonadione 5 MG TAB PO SCH (13:51)
[2020-11-05 16:21] LABS: Bilirubin Negative (Negative); Blood, Urine 2+ (Negative); Clarity Turbid (Clear); Glucose, Urine (Dipstick) Normal (Negative); Ketone, Urine Negative (Negative); Leukocyte 25 Leu/uL (Negative); Nitrite Negative (Negative); Protein, Urine (Dipstick) 50 mg/dL (Neg-Trace); RBC/HPF 21-50 HPF (0-3); Urobilinogen Normal mg/dL (Less than 2); WBC/HPF 0-3 HPF (0-3)
[2020-11-05 16:22] LABS: Bacteria/HPF Rare-Few HPF (None Seen)
[2020-11-05] MEDS ORDERED: Albumin 25% 25 GM/100 ML BOT IVPB SCH ×2 (17:39→18:00)
[2020-11-05 18:10] LABS: Mean Corpuscular HGB CONC 31.1 g/dL (32.0-36.0); Mean Corpuscular Hemoglobin 32.5 pg (27.0-31.0); Mean Platelet Volume 6.3 fL (7.4-10.4); Platelet Count 122 thou/uL (130-400); RBC Distribution Width 12.5 % (11.5-14.5)
[2020-11-05 18:18] LABS: INR-International Normal Ratio 1.7; PTT 37.1 sec (22.9-36.1); Prothrombin Time 19.8 sec (12.0-14.7)
[2020-11-05 18:23] LABS: Fibrinogen 146 mg/dL (253-463)
[2020-11-05 18:28] LABS: Platelet Count 122 thou/uL (130-400); White Blood Cell (WBC) Count 21.8 thou/uL (4.8-10.8)
[2020-11-05 18:34] LABS: D-Dimer Test Greater than 20.00 *mcg/mL (0.27-0.43)
[2020-11-05 18:35] LABS: Band 5 % (5-11); Eosinophils 2 % (0-10); Lymphocytes 5 % (21-51); MDiff Complete? YES; Macrocytosis SLIGHT = 6-15 cells (100X) (0-5/hpf); Monocytes 6 % (0-10); Neutrophil 82 % (42-75); Platelet Morphology Comment Appears Decreased; Polychromasia SLIGHT = 2-3 cells (100X) (0-2/hpf)
[2020-11-05 19:12] LABS: FSP-Qualitative ABNORMAL (Normal); FSP-Semiquantitative >=160 & <320 mcg/mL (Less than 5)
[2020-11-05] MEDS: Midodrine HCl 5 MG TAB PO SCH (20:36)
[2020-11-05] MEDS: Octreotide Acetate 1,250 MCG in Sodium Chloride 0.9% 250 ML 250 ML IVPB SCH (21:23)
[2020-11-05] MEDS: cefTRIAXone\\ROCEPHIN 2 GM in Sodium Chloride 0.9% 100 ML IVPB SCH (23:08)
[2020-11-06] MEDS: Albumin 25% 25 GM/100 ML BOT IVPB SCH ×4 (01:18→23:35)
[2020-11-06] MEDS: Vancomycin HCl 25 MG/ML Oral PO SCH ×4 (01:18→20:21)
[2020-11-06] MEDS: Sodium Chloride 0.9% 1,000 ML IV SCH ×2 (05:24→12:25)
[2020-11-06 06:12] LABS: #Eosinphils 0.2 thou/uL (0.0-0.7); #Monocytes 1.1 thou/uL (0.11-0.59); #Neutrophils 16.7 thou/uL (1.40-6.50); %Basophils 0.1 % (0.0-1.0); %Eosinophils 1.1 % (0.0-10.0); %Lymphocytes 9.8 % (21.0-51.0); %Monocytes 5.4 % (0.0-10.0); %Neutrophils 83.6 % (42.0-75.0); Hemoglobin 11.2 g/dL (14.0-18.0); Mean Corpuscular HGB CONC 33.1 g/dL (32.0-36.0); Mean Corpuscular Hemoglobin 34.8 pg (27.0-31.0); Mean Platelet Volume 6.3 fL (7.4-10.4); Platelet Count 84 thou/uL (130-400); RBC Distribution Width 12.3 % (11.5-14.5)
[2020-11-06 06:36] LABS: ALT (SGPT) 7 U/L (8-55); AST (SGOT) 21 U/L (5-34); Albumin 2.6 g/dL (3.5-5.0); Alkaline Phosphatase 77 U/L (40-110); Anion Gap 14 mmol/L (10-20); BUN (Urea Nitrogen) 41 mg/dL (8.9-20.6); Bilirubin, Total 1.8 mg/dL (0.2-1.2); Calc. Creatinine Clearance 67 mL/min (70-130); Calcium 7.5 mg/dL (7.8-10.44); Carbon Dioxide 16 mmol/L (22-29); Chloride 106 mmol/L (98-107); Globulin 3.1 g/dL (2.4-3.5); Glucose 88 mg/dL (70-105); Potassium 3.7 mmol/L (3.5-5.1); Protein, Total 5.7 g/dL (6.0-8.3); Sodium 132 mmol/L (136-145)
[2020-11-06] MEDS: Diclofenac 1% 100 GM GEL TP SCH ×4 (08:50→20:22)
[2020-11-06] MEDS: Potassium Chloride 20 MEQ TAB PO SCH (10:10)
[2020-11-06] MEDS: Escitalopram Oxalate 10 mg Tablet PO SCH (10:11)
[2020-11-06] MEDS: Amlodipine 5 MG TAB PO SCH (10:11)
[2020-11-06] MEDS: Midodrine HCl 5 MG TAB PO SCH ×3 (10:11→20:23)
[2020-11-06] MEDS: Aspirin 81 mg Enteric Coated Tablet PO SCH (10:11)
[2020-11-06] MEDS: Saccharomyces boulardii 250 MG CAP PO SCH (10:12)
[2020-11-06 11:24] LABS: Band 12 % (5-11); Eosinophils 4 % (0-10); Hemoglobin 11.2 g/dL (14.0-18.0); Lymphocytes 6 % (21-51); MDiff Complete? YES; Macrocytosis SLIGHT = 6-15 cells (100X) (0-5/hpf); Mean Corpuscular HGB CONC 33.2 g/dL (32.0-36.0); Mean Corpuscular Hemoglobin 34.8 pg (27.0-31.0); Mean Platelet Volume 6.7 fL (7.4-10.4); Monocytes 1 % (0-10); Neutrophil 77 % (42-75); Platelet Count 74 thou/uL (130-400); Platelet Morphology Comment Appears Decreased; Polychromasia SLIGHT = 2-3 cells (100X) (0-2/hpf); RBC Distribution Width 12.3 % (11.5-14.5); Red Blood Cell (RBC) Count 3.21 mill/uL (4.70-6.10); White Blood Cell (WBC) Count 15.8 thou/uL (4.8-10.8)
[2020-11-06 12:16] LABS: HBV as IU/mL HBV DNA not detected IU/mL (.)
[2020-11-06] MEDS ORDERED: Potassium Chloride 20 MEQ TAB PO SCH (12:30)
[2020-11-06] MEDS: Sodium Bicarbonate 75 MEQ in Sodium Chloride 0.45% 1,000 ML IV SCH ×2 (13:09→23:34)
[2020-11-06] MEDS ORDERED: Lidocaine 1% PF 5 ML VIAL ONE (15:49)
[2020-11-06] MEDS ORDERED: PROPOFOL 200 MG/20 ML VIAL ONE (15:49)
[2020-11-06] MEDS ORDERED: PHENYLEPHRINE-NS 100 MCG/ML 10 ML SYRINGE ONE (15:49)
[2020-11-06] MEDS ORDERED: ePHEDrine 50 MG/ML VIAL ONE (15:49)
[2020-11-06] MEDS: cefTRIAXone\\ROCEPHIN 2 GM in Sodium Chloride 0.9% 100 ML IVPB SCH (23:35)
[2020-11-07] MEDS: Octreotide Acetate 1,250 MCG in Sodium Chloride 0.9% 250 ML 250 ML IVPB SCH (01:46)
[2020-11-07] MEDS: Vancomycin HCl 25 MG/ML Oral PO SCH ×4 (01:46→20:10)
[2020-11-07] MEDS: Sodium Bicarbonate 75 MEQ in Sodium Chloride 0.45% 1,000 ML IV SCH ×2 (04:52→11:42)
[2020-11-07] MEDS: Albumin 25% 25 GM/100 ML BOT IVPB SCH ×3 (05:06→17:10)
[2020-11-07 06:51] LABS: #Eosinphils 0.4 thou/uL (0.0-0.7); #Lymphocytes 1.8 thou/uL (1.20-3.40); #Monocytes 0.7 thou/uL (0.11-0.59); #Neutrophils 5.3 thou/uL (1.40-6.50); %Basophils 0.4 % (0.0-1.0); %Eosinophils 4.9 % (0.0-10.0); %Lymphocytes 21.7 % (21.0-51.0); %Monocytes 8.3 % (0.0-10.0); %Neutrophils 64.8 % (42.0-75.0); Hemoglobin 9.6 g/dL (14.0-18.0); Mean Corpuscular HGB CONC 34.3 g/dL (32.0-36.0); Mean Corpuscular Hemoglobin 35.7 pg (27.0-31.0); Mean Platelet Volume 6.7 fL (7.4-10.4); Platelet Count 63 thou/uL (130-400); RBC Distribution Width 12.5 % (11.5-14.5); Red Blood Cell (RBC) Count 2.68 mill/uL (4.70-6.10); White Blood Cell (WBC) Count 8.2 thou/uL (4.8-10.8)
[2020-11-07 07:13] LABS: ALT (SGPT) 8 U/L (8-55); AST (SGOT) 23 U/L (5-34); Alkaline Phosphatase 68 U/L (40-110); Anion Gap 13 mmol/L (10-20); BUN (Urea Nitrogen) 41 mg/dL (8.9-20.6); Bilirubin, Total 2.1 mg/dL (0.2-1.2); Calc. Creatinine Clearance 64 mL/min (70-130); Calcium 7.6 mg/dL (7.8-10.44); Carbon Dioxide 19 mmol/L (22-29); Chloride 106 mmol/L (98-107); Glucose 120 mg/dL (70-105); Potassium 3.2 mmol/L (3.5-5.1); Sodium 135 mmol/L (136-145)
[2020-11-07] MEDS: Midodrine HCl 5 MG TAB PO SCH ×3 (07:52→20:09)
[2020-11-07] MEDS: Saccharomyces boulardii 250 MG CAP PO SCH (07:52)
[2020-11-07] MEDS: Aspirin 81 mg Enteric Coated Tablet PO SCH (07:52)
[2020-11-07] MEDS: Escitalopram Oxalate 10 mg Tablet PO SCH (07:52)
[2020-11-07] MEDS: Amlodipine 5 MG TAB PO SCH (07:52)
[2020-11-07] MEDS: Potassium Chloride 20 MEQ TAB PO SCH (07:52)
[2020-11-07] MEDS: Diclofenac 1% 100 GM GEL TP SCH ×4 (07:53→20:15)
[2020-11-07 08:28] LABS: INR-International Normal Ratio 1.9; PTT 41.8 sec (22.9-36.1); Prothrombin Time 21.7 sec (12.0-14.7)
[2020-11-07 11:18] LABS: HIV (1/2) Antibody/Antigen Non-Reactive (NonReactive); HIV 1/2 INDEX 0.21 S/CO (<1.00); Syphilis Antibody Nonreactive (Nonreactive); Syphilis Antibody Index 0.04 S/CO (<1.00 Non-Reactive)
[2020-11-08] MEDS: Vancomycin HCl 25 MG/ML Oral PO SCH ×5 (01:22→23:30)
[2020-11-08] MEDS: Sodium Bicarbonate 75 MEQ in Sodium Chloride 0.45% 1,000 ML IV SCH (01:22)
[2020-11-08 05:57] LABS: #Eosinphils 0.4 thou/uL (0.0-0.7); #Lymphocytes 1.6 thou/uL (1.20-3.40); #Monocytes 0.6 thou/uL (0.11-0.59); #Neutrophils 5.7 thou/uL (1.40-6.50); %Basophils 0.1 % (0.0-1.0); %Eosinophils 4.9 % (0.0-10.0); %Lymphocytes 19.3 % (21.0-51.0); %Monocytes 7.1 % (0.0-10.0); %Neutrophils 68.7 % (42.0-75.0); Hemoglobin 9.9 g/dL (14.0-18.0); Mean Corpuscular HGB CONC 33.2 g/dL (32.0-36.0); Mean Corpuscular Hemoglobin 35.1 pg (27.0-31.0); Mean Platelet Volume 6.8 fL (7.4-10.4); Platelet Count 66 thou/uL (130-400); RBC Distribution Width 12.9 % (11.5-14.5); Red Blood Cell (RBC) Count 2.83 mill/uL (4.70-6.10); White Blood Cell (WBC) Count 8.3 thou/uL (4.8-10.8)
[2020-11-08 06:05] LABS: INR-International Normal Ratio 1.8; PTT 40.5 sec (22.9-36.1)
[2020-11-08 06:17] LABS: ALT (SGPT) 7 U/L (8-55); AST (SGOT) 27 U/L (5-34); Albumin 2.9 g/dL (3.5-5.0); Alkaline Phosphatase 72 U/L (40-110); Anion Gap 10 mmol/L (10-20); BUN (Urea Nitrogen) 36 mg/dL (8.9-20.6); Bilirubin, Total 2.3 mg/dL (0.2-1.2); Calc. Creatinine Clearance 67 mL/min (70-130); Calcium 7.6 mg/dL (7.8-10.44); Carbon Dioxide 22 mmol/L (22-29); Chloride 107 mmol/L (98-107); Glucose 109 mg/dL (70-105); Potassium 3.4 mmol/L (3.5-5.1); Protein, Total 5.9 g/dL (6.0-8.3); Sodium 136 mmol/L (136-145)
[2020-11-08] MEDS: Diclofenac 1% 100 GM GEL TP SCH ×4 (08:04→20:26)
[2020-11-08] MEDS: Midodrine HCl 5 MG TAB PO SCH ×3 (08:05→20:27)
[2020-11-08] MEDS: Amlodipine 5 MG TAB PO SCH (08:05)
[2020-11-08] MEDS: Escitalopram Oxalate 10 mg Tablet PO SCH (08:05)
[2020-11-08] MEDS: Saccharomyces boulardii 250 MG CAP PO SCH (08:05)
[2020-11-08] MEDS: Aspirin 81 mg Enteric Coated Tablet PO SCH (08:05)
[2020-11-08] MEDS: Potassium Chloride 20 MEQ TAB PO SCH (08:05)
[2020-11-08] MEDS: Octreotide Acetate 1,250 MCG in Sodium Chloride 0.9% 250 ML 250 ML IVPB SCH (10:08)
[2020-11-08] MEDS: Albumin 25% 25 GM/100 ML BOT IVPB SCH ×3 (12:21→23:30)
[2020-11-08 15:35] LABS: ANA Symphony (Qualitative) Negative (Negative); ANA Symphony (Quantitative) 0.3 Ratio (< 0.7 Negative); dsDNA IgG Antibody 2.3 IU/mL (<10 Negative)
[2020-11-09] MEDS: Vancomycin HCl 25 MG/ML Oral PO SCH ×4 (05:19→23:42)
[2020-11-09] MEDS: Albumin 25% 25 GM/100 ML BOT IVPB SCH ×2 (05:19→11:59)
[2020-11-09 05:45] LABS: #Eosinphils 0.3 thou/uL (0.0-0.7); #Lymphocytes 1.8 thou/uL (1.20-3.40); #Monocytes 0.5 thou/uL (0.11-0.59); #Neutrophils 5.9 thou/uL (1.40-6.50); %Basophils 0.5 % (0.0-1.0); %Eosinophils 3.6 % (0.0-10.0); %Monocytes 5.4 % (0.0-10.0); %Neutrophils 69.6 % (42.0-75.0); Hemoglobin 9.9 g/dL (14.0-18.0); Mean Corpuscular HGB CONC 32.9 g/dL (32.0-36.0); Mean Corpuscular Hemoglobin 35.1 pg (27.0-31.0); Mean Platelet Volume 6.6 fL (7.4-10.4); Platelet Count 62 thou/uL (130-400); RBC Distribution Width 13.3 % (11.5-14.5); Red Blood Cell (RBC) Count 2.83 mill/uL (4.70-6.10); White Blood Cell (WBC) Count 8.4 thou/uL (4.8-10.8)
[2020-11-09 05:55] LABS: INR-International Normal Ratio 1.9; PTT 44.5 sec (22.9-36.1); Prothrombin Time 21.5 sec (12.0-14.7)
[2020-11-09 06:09] LABS: ALT (SGPT) 9 U/L (8-55); AST (SGOT) 24 U/L (5-34); Albumin 2.9 g/dL (3.5-5.0); Alkaline Phosphatase 64 U/L (40-110); Anion Gap 10 mmol/L (10-20); BUN (Urea Nitrogen) 33 mg/dL (8.9-20.6); Bilirubin, Total 2.5 mg/dL (0.2-1.2); Calc. Creatinine Clearance 67 mL/min (70-130); Calcium 7.7 mg/dL (7.8-10.44); Carbon Dioxide 23 mmol/L (22-29); Chloride 108 mmol/L (98-107); Globulin 2.9 g/dL (2.4-3.5); Glucose 132 mg/dL (70-105); Potassium 3.5 mmol/L (3.5-5.1); Protein, Total 5.8 g/dL (6.0-8.3); Sodium 137 mmol/L (136-145)
[2020-11-09] MEDS: Escitalopram Oxalate 10 mg Tablet PO SCH (09:17)
[2020-11-09] MEDS: Aspirin 81 mg Enteric Coated Tablet PO SCH (09:17)
[2020-11-09] MEDS: Saccharomyces boulardii 250 MG CAP PO SCH (09:17)
[2020-11-09] MEDS: Diclofenac 1% 100 GM GEL TP SCH ×4 (09:17→20:26)
[2020-11-09] MEDS: Potassium Chloride 20 MEQ TAB PO SCH (09:17)
[2020-11-09] MEDS: Amlodipine 5 MG TAB PO SCH (09:17)
[2020-11-09] MEDS: Midodrine HCl 5 MG TAB PO SCH ×3 (09:17→20:26)
[2020-11-09] MEDS: Octreotide Acetate 1,250 MCG in Sodium Chloride 0.9% 250 ML 250 ML IVPB SCH (11:58)
[2020-11-09 15:13] LABS: Alpha-1-Antitrypsin 216 mg/dL (101-187)
[2020-11-09 15:37] LABS: Cytoplasmic (C-ANCA) <1:20 titer (Neg:<1:20); Myeloperoxidase AutoAbs <9.0 U/mL (0.0-9.0); Perinuclear (P-ANCA) <1:20 titer (Neg:<1:20); Proteinase-3 AutoAbs Less than 3.5 U/mL (0.0-3.5)
[2020-11-10] MEDS: Vancomycin HCl 25 MG/ML Oral PO SCH ×3 (05:49→17:51)
[2020-11-10 07:11] LABS: #Basophils 0.1 thou/uL (0.0-0.2); #Eosinphils 0.5 thou/uL (0.0-0.7); #Lymphocytes 2.1 thou/uL (1.20-3.40); #Monocytes 0.6 thou/uL (0.11-0.59); #Neutrophils 6.5 thou/uL (1.40-6.50); %Basophils 0.5 % (0.0-1.0); %Eosinophils 4.7 % (0.0-10.0); %Lymphocytes 21.6 % (21.0-51.0); %Monocytes 6.1 % (0.0-10.0); %Neutrophils 67.2 % (42.0-75.0); Hemoglobin 10.2 g/dL (14.0-18.0); Mean Corpuscular HGB CONC 33.1 g/dL (32.0-36.0); Mean Corpuscular Hemoglobin 35.9 pg (27.0-31.0); Mean Platelet Volume 6.5 fL (7.4-10.4); Platelet Count 66 thou/uL (130-400); RBC Distribution Width 13.7 % (11.5-14.5); Red Blood Cell (RBC) Count 2.85 mill/uL (4.70-6.10); White Blood Cell (WBC) Count 9.7 thou/uL (4.8-10.8)
[2020-11-10 07:15] LABS: ALT (SGPT) 8 U/L (8-55); AST (SGOT) 24 U/L (5-34); Albumin 3.1 g/dL (3.5-5.0); Alkaline Phosphatase 71 U/L (40-110); Anion Gap 11 mmol/L (10-20); BUN (Urea Nitrogen) 32 mg/dL (8.9-20.6); Calc. Creatinine Clearance 61 mL/min (70-130); Calcium 7.7 mg/dL (7.8-10.44); Carbon Dioxide 22 mmol/L (22-29); Chloride 110 mmol/L (98-107); Globulin 3.1 g/dL (2.4-3.5); Glucose 97 mg/dL (70-105); Protein, Total 6.2 g/dL (6.0-8.3); Sodium 139 mmol/L (136-145)
[2020-11-10 07:16] LABS: INR-International Normal Ratio 1.8; Prothrombin Time 21.2 sec (12.0-14.7)
[2020-11-10 07:17] LABS: PTT 44.3 sec (22.9-36.1)
[2020-11-10] MEDS: Diclofenac 1% 100 GM GEL TP SCH ×2 (08:25→13:48)
[2020-11-10] MEDS: Saccharomyces boulardii 250 MG CAP PO SCH (08:26)
[2020-11-10] MEDS: Midodrine HCl 5 MG TAB PO SCH ×3 (08:26→20:29)
[2020-11-10] MEDS: Amlodipine 5 MG TAB PO SCH (08:26)
[2020-11-10] MEDS: Potassium Chloride 20 MEQ TAB PO SCH (08:26)
[2020-11-10] MEDS: Escitalopram Oxalate 10 mg Tablet PO SCH (08:26)
[2020-11-10] MEDS: Aspirin 81 mg Enteric Coated Tablet PO SCH (08:27)
[2020-11-10 15:12] LABS: Alpha-1-Antitrypsin Stool 3.01 mg/g (0.061-0.387)
[2020-11-10] MEDS: Octreotide Acetate 1,250 MCG in Sodium Chloride 0.9% 250 ML 250 ML IVPB SCH (16:26)
[2020-11-10] MEDS: Ondansetron PF 4 MG/2 ML Vial IVP PRN (17:49)
[2020-11-10] MEDS ORDERED: Sodium Chloride 0.9% 1,000 ML IV SCH (20:00)
[2020-11-10] MEDS: Promethazine HCl 12.5 MG in Sodium Chloride 0.9% 50 ML IVPB PRN (20:55)
[2020-11-11] MEDS: Vancomycin HCl 25 MG/ML Oral PO SCH ×5 (00:04→23:23)
[2020-11-11 06:20] LABS: #Basophils 0.1 thou/uL (0.0-0.2); #Eosinphils 0.3 thou/uL (0.0-0.7); #Lymphocytes 3.1 thou/uL (1.20-3.40); #Monocytes 0.8 thou/uL (0.11-0.59); #Neutrophils 9.2 thou/uL (1.40-6.50); %Basophils 0.5 % (0.0-1.0); %Eosinophils 2.4 % (0.0-10.0); %Lymphocytes 23.1 % (21.0-51.0); %Monocytes 6.1 % (0.0-10.0); Hemoglobin 11.6 g/dL (14.0-18.0); Mean Corpuscular HGB CONC 33.4 g/dL (32.0-36.0); Mean Corpuscular Hemoglobin 36.3 pg (27.0-31.0); Mean Platelet Volume 7.5 fL (7.4-10.4); Platelet Count 93 thou/uL (130-400); White Blood Cell (WBC) Count 13.5 thou/uL (4.8-10.8)
[2020-11-11 06:29] LABS: PTT 42.3 sec (22.9-36.1); Prothrombin Time 22.4 sec (12.0-14.7)
[2020-11-11 06:37] LABS: ALT (SGPT) 8 U/L (8-55); AST (SGOT) 24 U/L (5-34); Albumin 2.9 g/dL (3.5-5.0); Alkaline Phosphatase 74 U/L (40-110); Anion Gap 15 mmol/L (10-20); BUN (Urea Nitrogen) 37 mg/dL (8.9-20.6); Bilirubin, Total 4.7 mg/dL (0.2-1.2); Calc. Creatinine Clearance 48 mL/min (70-130); Calcium 7.9 mg/dL (7.8-10.44); Carbon Dioxide 18 mmol/L (22-29); Chloride 109 mmol/L (98-107); Globulin 3.4 g/dL (2.4-3.5); Glucose 116 mg/dL (70-105); Potassium 4.7 mmol/L (3.5-5.1); Protein, Total 6.3 g/dL (6.0-8.3); Sodium 137 mmol/L (136-145)
[2020-11-11] MEDS: Amlodipine 5 MG TAB PO SCH (09:28)
[2020-11-11] MEDS: Saccharomyces boulardii 250 MG CAP PO SCH (09:28)
[2020-11-11] MEDS: Midodrine HCl 5 MG TAB PO SCH ×3 (09:28→20:24)
[2020-11-11] MEDS: Potassium Chloride 20 MEQ TAB PO SCH (09:28)
[2020-11-11] MEDS: Escitalopram Oxalate 10 mg Tablet PO SCH (09:28)
[2020-11-11] MEDS: Aspirin 81 mg Enteric Coated Tablet PO SCH (09:28)
[2020-11-11] MEDS: Sodium Chloride 0.9% 1,000 ML IV SCH ×2 (13:35→20:34)
[2020-11-11] MEDS: Albumin 25% 25 GM/100 ML BOT IVPB SCH ×2 (18:39→23:23)
[2020-11-11] MEDS: Octreotide Acetate 1,250 MCG in Sodium Chloride 0.9% 250 ML 250 ML IVPB SCH (20:24)
[2020-11-12] MEDS: Albumin 25% 25 GM/100 ML BOT IVPB SCH ×3 (05:21→18:44)
[2020-11-12] MEDS: Sodium Chloride 0.9% 1,000 ML IV SCH ×3 (05:22→21:38)
[2020-11-12] MEDS: Vancomycin HCl 25 MG/ML Oral PO SCH ×4 (05:22→23:32)
[2020-11-12 05:51] LABS: #Eosinphils 0.3 thou/uL (0.0-0.7); #Lymphocytes 1.6 thou/uL (1.20-3.40); #Monocytes 0.8 thou/uL (0.11-0.59); #Neutrophils 5.4 thou/uL (1.40-6.50); %Basophils 0.3 % (0.0-1.0); %Eosinophils 3.4 % (0.0-10.0); %Lymphocytes 19.3 % (21.0-51.0); %Monocytes 9.3 % (0.0-10.0); %Neutrophils 67.6 % (42.0-75.0); Hemoglobin 8.7 g/dL (14.0-18.0); Mean Corpuscular HGB CONC 32.3 g/dL (32.0-36.0); Mean Corpuscular Hemoglobin 35.1 pg (27.0-31.0); Mean Platelet Volume 6.6 fL (7.4-10.4); Platelet Count 50 thou/uL (130-400); RBC Distribution Width 13.8 % (11.5-14.5); Red Blood Cell (RBC) Count 2.48 mill/uL (4.70-6.10)
[2020-11-12 06:03] LABS: INR-International Normal Ratio 2.1; PTT 47.2 sec (22.9-36.1); Prothrombin Time 23.8 sec (12.0-14.7)
[2020-11-12 06:11] LABS: ALT (SGPT) 7 U/L (8-55); AST (SGOT) 20 U/L (5-34); Albumin 2.8 g/dL (3.5-5.0); Alkaline Phosphatase 67 U/L (40-110); Anion Gap 13 mmol/L (10-20); BUN (Urea Nitrogen) 41 mg/dL (8.9-20.6); Bilirubin, Total 3.8 mg/dL (0.2-1.2); Calc. Creatinine Clearance 46 mL/min (70-130); Calcium 7.7 mg/dL (7.8-10.44); Carbon Dioxide 18 mmol/L (22-29); Chloride 112 mmol/L (98-107); Globulin 3.2 g/dL (2.4-3.5); Glucose 95 mg/dL (70-105); Potassium 4.5 mmol/L (3.5-5.1); Sodium 138 mmol/L (136-145)
[2020-11-12] MEDS: Saccharomyces boulardii 250 MG CAP PO SCH (07:56)
[2020-11-12] MEDS: Midodrine HCl 5 MG TAB PO SCH ×3 (07:57→20:14)
[2020-11-12] MEDS: Escitalopram Oxalate 10 mg Tablet PO SCH (07:57)
[2020-11-12] MEDS: Aspirin 81 mg Enteric Coated Tablet PO SCH (07:57)
[2020-11-12] MEDS: Octreotide Acetate 1,250 MCG in Sodium Chloride 0.9% 250 ML 250 ML IVPB SCH (21:38)
[2020-11-13] MEDS: Sodium Chloride 0.9% 1,000 ML IV SCH ×3 (04:47→21:18)
[2020-11-13] MEDS: Vancomycin HCl 25 MG/ML Oral PO SCH ×4 (06:29→23:28)
[2020-11-13 07:21] LABS: ALT (SGPT) 7 U/L (8-55); AST (SGOT) 26 U/L (5-34); Alkaline Phosphatase 65 U/L (40-110); Anion Gap 13 mmol/L (10-20); BUN (Urea Nitrogen) 42 mg/dL (8.9-20.6); Bilirubin, Total 4.5 mg/dL (0.2-1.2); Calc. Creatinine Clearance 45 mL/min (70-130); Calcium 7.7 mg/dL (7.8-10.44); Carbon Dioxide 17 mmol/L (22-29); Chloride 112 mmol/L (98-107); Globulin 3.3 g/dL (2.4-3.5); Glucose 106 mg/dL (70-105); Potassium 4.5 mmol/L (3.5-5.1); Protein, Total 6.3 g/dL (6.0-8.3); Sodium 137 mmol/L (136-145)
[2020-11-13 07:22] LABS: Prothrombin Time 22.9 sec (12.0-14.7)
[2020-11-13 07:24] LABS: PTT 46.6 sec (22.9-36.1)
[2020-11-13 07:27] LABS: #Eosinphils 0.3 thou/uL (0.0-0.7); #Lymphocytes 1.4 thou/uL (1.20-3.40); #Monocytes 0.8 thou/uL (0.11-0.59); #Neutrophils 4.7 thou/uL (1.40-6.50); %Basophils 0.5 % (0.0-1.0); %Eosinophils 3.9 % (0.0-10.0); %Lymphocytes 19.5 % (21.0-51.0); %Monocytes 11.5 % (0.0-10.0); %Neutrophils 64.6 % (42.0-75.0); Hemoglobin 8.2 g/dL (14.0-18.0); Mean Corpuscular HGB CONC 31.6 g/dL (32.0-36.0); Mean Corpuscular Hemoglobin 34.8 pg (27.0-31.0); Mean Platelet Volume 6.5 fL (7.4-10.4); Platelet Count 52 thou/uL (130-400); RBC Distribution Width 13.8 % (11.5-14.5); Red Blood Cell (RBC) Count 2.36 mill/uL (4.70-6.10); White Blood Cell (WBC) Count 7.2 thou/uL (4.8-10.8)
[2020-11-13] MEDS: Escitalopram Oxalate 10 mg Tablet PO SCH (09:04)
[2020-11-13] MEDS: Aspirin 81 mg Enteric Coated Tablet PO SCH (09:04)
[2020-11-13] MEDS: Midodrine HCl 5 MG TAB PO SCH ×3 (09:04→21:19)
[2020-11-13] MEDS: guaiFENesin ER 600 MG TAB PO SCH ×2 (09:04→21:18)
[2020-11-13] MEDS: Saccharomyces boulardii 250 MG CAP PO SCH (09:04)
[2020-11-13] MEDS ORDERED: Lidocaine Viscous Sol 2% 15 ml UD Cup SSP PRN (09:26)
[2020-11-13] MEDS: Octreotide Acetate 100 MCG/ML VIAL SC SCH ×2 (14:32→21:19)
[2020-11-14] MEDS: Sodium Chloride 0.9% 1,000 ML IV SCH ×3 (05:59→21:52)
[2020-11-14] MEDS: Octreotide Acetate 100 MCG/ML VIAL SC SCH ×3 (06:15→21:53)
[2020-11-14] MEDS: Vancomycin HCl 25 MG/ML Oral PO SCH ×4 (06:15→23:20)
[2020-11-14 07:41] LABS: INR-International Normal Ratio 1.9; PTT 44.6 sec (22.9-36.1); Prothrombin Time 21.9 sec (12.0-14.7)
[2020-11-14 07:52] LABS: ALT (SGPT) 8 U/L (8-55); AST (SGOT) 28 U/L (5-34); Albumin 2.8 g/dL (3.5-5.0); Alkaline Phosphatase 69 U/L (40-110); Anion Gap 9 mmol/L (10-20); BUN (Urea Nitrogen) 46 mg/dL (8.9-20.6); Bilirubin, Total 4.3 mg/dL (0.2-1.2); Calc. Creatinine Clearance 42 mL/min (70-130); Calcium 7.7 mg/dL (7.8-10.44); Carbon Dioxide 20 mmol/L (22-29); Chloride 113 mmol/L (98-107); Globulin 3.5 g/dL (2.4-3.5); Glucose 96 mg/dL (70-105); Potassium 4.7 mmol/L (3.5-5.1); Protein, Total 6.3 g/dL (6.0-8.3); Sodium 137 mmol/L (136-145)
[2020-11-14 08:09] LABS: #Eosinphils 0.3 thou/uL (0.0-0.7); #Lymphocytes 1.4 thou/uL (1.20-3.40); #Monocytes 0.8 thou/uL (0.11-0.59); #Neutrophils 4.3 thou/uL (1.40-6.50); %Basophils 0.6 % (0.0-1.0); %Eosinophils 3.9 % (0.0-10.0); %Lymphocytes 20.8 % (21.0-51.0); %Monocytes 12.2 % (0.0-10.0); %Neutrophils 62.5 % (42.0-75.0); Hemoglobin 8.6 g/dL (14.0-18.0); Mean Corpuscular Hemoglobin 35.1 pg (27.0-31.0); Mean Platelet Volume 6.7 fL (7.4-10.4); Platelet Count 60 thou/uL (130-400); Platelet Morphology Comment Appears Decreased; RBC Distribution Width 13.6 % (11.5-14.5); Red Blood Cell (RBC) Count 2.46 mill/uL (4.70-6.10); White Blood Cell (WBC) Count 6.8 thou/uL (4.8-10.8)
[2020-11-14 08:10] LABS: MDiff Complete? YES
[2020-11-14] MEDS ORDERED: Albumin 25% 25 GM/100 ML BOT IVPB SCH (08:36)
[2020-11-14] MEDS: guaiFENesin ER 600 MG TAB PO SCH ×2 (09:47→21:52)
[2020-11-14] MEDS: Saccharomyces boulardii 250 MG CAP PO SCH (09:47)
[2020-11-14] MEDS: Escitalopram Oxalate 10 mg Tablet PO SCH (09:47)
[2020-11-14] MEDS: Aspirin 81 mg Enteric Coated Tablet PO SCH (09:47)
[2020-11-14] MEDS: Midodrine HCl 5 MG TAB PO SCH ×3 (09:51→21:52)
[2020-11-14] MEDS: Cholestyramine/Aspartame 4 gm Packet PO SCH (17:02)
[2020-11-14] MEDS: Ondansetron PF 4 MG/2 ML Vial IVP PRN (23:20)
[2020-11-15] MEDS: Sodium Chloride 0.9% 1,000 ML IV SCH ×2 (04:26→11:26)
[2020-11-15] MEDS: Vancomycin HCl 25 MG/ML Oral PO SCH ×3 (05:18→17:50)
[2020-11-15] MEDS: Octreotide Acetate 100 MCG/ML VIAL SC SCH ×3 (05:19→17:03)
[2020-11-15] MEDS: Cholestyramine/Aspartame 4 gm Packet PO SCH ×2 (06:30→17:01)
[2020-11-15 06:56] LABS: INR-International Normal Ratio 2.2; Prothrombin Time 24.4 sec (12.0-14.7)
[2020-11-15 06:57] LABS: PTT 43.7 sec (22.9-36.1)
[2020-11-15 07:03] LABS: #Eosinphils 0.1 thou/uL (0.0-0.7); #Lymphocytes 1.4 thou/uL (1.20-3.40); #Monocytes 0.7 thou/uL (0.11-0.59); #Neutrophils 5.2 thou/uL (1.40-6.50); %Basophils 0.4 % (0.0-1.0); %Eosinophils 1.9 % (0.0-10.0); %Lymphocytes 19.2 % (21.0-51.0); %Monocytes 8.9 % (0.0-10.0); %Neutrophils 69.6 % (42.0-75.0); Hemoglobin 9.2 g/dL (14.0-18.0); Mean Corpuscular HGB CONC 31.8 g/dL (32.0-36.0); Mean Corpuscular Hemoglobin 35.1 pg (27.0-31.0); Mean Platelet Volume 6.6 fL (7.4-10.4); Platelet Count 77 thou/uL (130-400); RBC Distribution Width 14.3 % (11.5-14.5); Red Blood Cell (RBC) Count 2.63 mill/uL (4.70-6.10); White Blood Cell (WBC) Count 7.4 thou/uL (4.8-10.8)
[2020-11-15 07:07] LABS: ALT (SGPT) 9 U/L (8-55); AST (SGOT) 28 U/L (5-34); Albumin 2.7 g/dL (3.5-5.0); Alkaline Phosphatase 66 U/L (40-110); Anion Gap 14 mmol/L (10-20); BUN (Urea Nitrogen) 49 mg/dL (8.9-20.6); Calc. Creatinine Clearance 40 mL/min (70-130); Calcium 7.7 mg/dL (7.8-10.44); Carbon Dioxide 16 mmol/L (22-29); Chloride 114 mmol/L (98-107); Globulin 3.4 g/dL (2.4-3.5); Glucose 101 mg/dL (70-105); Potassium 5.1 mmol/L (3.5-5.1); Protein, Total 6.1 g/dL (6.0-8.3); Sodium 139 mmol/L (136-145)
[2020-11-15] MEDS: Midodrine HCl 5 MG TAB PO SCH ×3 (08:31→21:06)
[2020-11-15] MEDS: Aspirin 81 mg Enteric Coated Tablet PO SCH (08:31)
[2020-11-15] MEDS: Saccharomyces boulardii 250 MG CAP PO SCH (08:31)
[2020-11-15] MEDS: Escitalopram Oxalate 10 mg Tablet PO SCH (08:31)
[2020-11-15] MEDS: guaiFENesin ER 600 MG TAB PO SCH ×2 (08:31→21:06)
[2020-11-15] MEDS ORDERED: Heparin 10,000 UNITS/ 10 ML VIAL ONE (09:26)
[2020-11-15] MEDS ORDERED: Furosemide 40 MG/4 ML VIAL SLOW IVP SCH (14:30)
[2020-11-16] MEDS: Vancomycin HCl 25 MG/ML Oral PO SCH ×3 (00:19→12:59)
[2020-11-16] MEDS: Octreotide Acetate 100 MCG/ML VIAL SC SCH ×2 (00:19→09:07)
[2020-11-16] MEDS: Cholestyramine/Aspartame 4 gm Packet PO SCH ×2 (06:24→17:40)
[2020-11-16 06:43] LABS: #Eosinphils 0.2 thou/uL (0.0-0.7); #Lymphocytes 1.6 thou/uL (1.20-3.40); #Monocytes 0.7 thou/uL (0.11-0.59); #Neutrophils 3.6 thou/uL (1.40-6.50); %Basophils 0.5 % (0.0-1.0); %Eosinophils 2.6 % (0.0-10.0); %Lymphocytes 25.8 % (21.0-51.0); %Monocytes 11.9 % (0.0-10.0); %Neutrophils 59.1 % (42.0-75.0); Mean Corpuscular HGB CONC 31.8 g/dL (32.0-36.0); Mean Corpuscular Hemoglobin 35.1 pg (27.0-31.0); Mean Platelet Volume 6.8 fL (7.4-10.4); Platelet Count 79 thou/uL (130-400); Red Blood Cell (RBC) Count 2.26 mill/uL (4.70-6.10); White Blood Cell (WBC) Count 6.2 thou/uL (4.8-10.8)
[2020-11-16 06:50] LABS: INR-International Normal Ratio 2.1; Prothrombin Time 23.4 sec (12.0-14.7)
[2020-11-16 06:59] LABS: ALT (SGPT) 12 U/L (8-55); AST (SGOT) 29 U/L (5-34); Albumin 2.7 g/dL (3.5-5.0); Alkaline Phosphatase 69 U/L (40-110); Anion Gap 14 mmol/L (10-20); BUN (Urea Nitrogen) 45 mg/dL (8.9-20.6); Bilirubin, Total 5.2 mg/dL (0.2-1.2); Calc. Creatinine Clearance 42 mL/min (70-130); Calcium 8.1 mg/dL (7.8-10.44); Carbon Dioxide 19 mmol/L (22-29); Chloride 111 mmol/L (98-107); Globulin 3.8 g/dL (2.4-3.5); Glucose 95 mg/dL (70-105); Potassium 4.8 mmol/L (3.5-5.1); Protein, Total 6.5 g/dL (6.0-8.3); Sodium 139 mmol/L (136-145)
[2020-11-16 07:51] LABS: Hypochromia SLIGHT = 6-15 cells (100X) (0-5/hpf); MDiff Complete? YES; Macrocytosis MODERATE=16-30 cells (100X) (0-5/hpf); Platelet Morphology Comment Appears Decreased; Polychromasia SLIGHT = 2-3 cells (100X) (0-2/hpf)
[2020-11-16] MEDS ORDERED: Heparin 10,000 UNITS/ 10 ML VIAL ONE (08:40)
[2020-11-16] MEDS: Midodrine HCl 5 MG TAB PO SCH (09:06)
[2020-11-16] MEDS: Saccharomyces boulardii 250 MG CAP PO SCH (09:07)
[2020-11-16] MEDS: guaiFENesin ER 600 MG TAB PO SCH ×2 (09:07→20:44)
[2020-11-16] MEDS: Escitalopram Oxalate 10 mg Tablet PO SCH (09:07)
[2020-11-16] MEDS: Aspirin 81 mg Enteric Coated Tablet PO SCH (09:07)
[2020-11-17 06:32] LABS: #Eosinphils 0.1 thou/uL (0.0-0.7); #Monocytes 0.5 thou/uL (0.11-0.59); #Neutrophils 2.4 thou/uL (1.40-6.50); %Basophils 0.6 % (0.0-1.0); %Eosinophils 3.4 % (0.0-10.0); %Lymphocytes 24.2 % (21.0-51.0); %Monocytes 13.4 % (0.0-10.0); %Neutrophils 58.6 % (42.0-75.0); Hemoglobin 7.8 g/dL (14.0-18.0); Mean Corpuscular HGB CONC 32.2 g/dL (32.0-36.0); Mean Corpuscular Hemoglobin 35.2 pg (27.0-31.0); Mean Platelet Volume 6.6 fL (7.4-10.4); Platelet Count 56 thou/uL (130-400); RBC Distribution Width 14.3 % (11.5-14.5); Red Blood Cell (RBC) Count 2.23 mill/uL (4.70-6.10); White Blood Cell (WBC) Count 4.1 thou/uL (4.8-10.8)
[2020-11-17 06:40] LABS: INR-International Normal Ratio 2.1
[2020-11-17 06:41] LABS: PTT 45.3 sec (22.9-36.1)
[2020-11-17 06:48] LABS: ALT (SGPT) 11 U/L (8-55); AST (SGOT) 31 U/L (5-34); Albumin 2.7 g/dL (3.5-5.0); Alkaline Phosphatase 68 U/L (40-110); Anion Gap 12 mmol/L (10-20); BUN (Urea Nitrogen) 34 mg/dL (8.9-20.6); Bilirubin, Total 4.8 mg/dL (0.2-1.2); Calc. Creatinine Clearance 48 mL/min (70-130); Calcium 7.8 mg/dL (7.8-10.44); Carbon Dioxide 23 mmol/L (22-29); Chloride 108 mmol/L (98-107); Globulin 4.1 g/dL (2.4-3.5); Glucose 130 mg/dL (70-105); Potassium 4.3 mmol/L (3.5-5.1); Protein, Total 6.8 g/dL (6.0-8.3); Sodium 139 mmol/L (136-145)
[2020-11-17 06:53] LABS: MDiff Complete? YES; Macrocytosis SLIGHT = 6-15 cells (100X) (0-5/hpf); Platelet Morphology Comment Appears Decreased
[2020-11-17] MEDS: Cholestyramine/Aspartame 4 gm Packet PO SCH ×2 (08:05→16:41)
[2020-11-17] MEDS: Aspirin 81 mg Enteric Coated Tablet PO SCH (08:06)
[2020-11-17] MEDS: Escitalopram Oxalate 10 mg Tablet PO SCH (08:06)
[2020-11-17] MEDS: Saccharomyces boulardii 250 MG CAP PO SCH (08:06)
[2020-11-17] MEDS: guaiFENesin ER 600 MG TAB PO SCH ×2 (08:06→22:06)
[2020-11-17] MEDS ORDERED: Heparin 10,000 UNITS/ 10 ML VIAL ONE (09:09)
[2020-11-17] MEDS: EPOETIN ALFA-EPBX (ESRD) 10,000 UNIT/ML VIAL IVP SCH (16:37)
[2020-11-18 06:04] LABS: #Eosinphils 0.1 thou/uL (0.0-0.7); #Lymphocytes 1.1 thou/uL (1.20-3.40); #Monocytes 0.4 thou/uL (0.11-0.59); #Neutrophils 1.8 thou/uL (1.40-6.50); %Basophils 0.6 % (0.0-1.0); %Eosinophils 4.1 % (0.0-10.0); %Lymphocytes 30.5 % (21.0-51.0); %Monocytes 12.1 % (0.0-10.0); %Neutrophils 52.7 % (42.0-75.0); Hemoglobin 7.4 g/dL (14.0-18.0); Mean Corpuscular HGB CONC 32.2 g/dL (32.0-36.0); Mean Corpuscular Hemoglobin 35.4 pg (27.0-31.0); Mean Platelet Volume 6.9 fL (7.4-10.4); Platelet Count 49 thou/uL (130-400); RBC Distribution Width 14.7 % (11.5-14.5); White Blood Cell (WBC) Count 3.5 thou/uL (4.8-10.8)
[2020-11-18 06:07] LABS: INR-International Normal Ratio 2.2; Prothrombin Time 24.2 sec (12.0-14.7)
[2020-11-18 06:08] LABS: PTT 47.6 sec (22.9-36.1)
[2020-11-18 06:10] LABS: ALT (SGPT) 10 U/L (8-55); AST (SGOT) 33 U/L (5-34); Albumin 2.7 g/dL (3.5-5.0); Alkaline Phosphatase 73 U/L (40-110); Anion Gap 11 mmol/L (10-20); BUN (Urea Nitrogen) 31 mg/dL (8.9-20.6); Bilirubin, Total 5.3 mg/dL (0.2-1.2); Calc. Creatinine Clearance 49 mL/min (70-130); Calcium 7.9 mg/dL (7.8-10.44); Carbon Dioxide 25 mmol/L (22-29); Chloride 104 mmol/L (98-107); Globulin 4.3 g/dL (2.4-3.5); Glucose 118 mg/dL (70-105); Potassium 3.9 mmol/L (3.5-5.1); Sodium 136 mmol/L (136-145)
[2020-11-18] MEDS: Cholestyramine/Aspartame 4 gm Packet PO SCH ×2 (07:40→18:04)
[2020-11-18] MEDS: Aspirin 81 mg Enteric Coated Tablet PO SCH (07:44)
[2020-11-18] MEDS: Escitalopram Oxalate 10 mg Tablet PO SCH (07:44)
[2020-11-18] MEDS: Saccharomyces boulardii 250 MG CAP PO SCH (07:44)
[2020-11-18] MEDS: guaiFENesin ER 600 MG TAB PO SCH ×2 (07:45→20:06)
[2020-11-18] MEDS ORDERED: Heparin 10,000 UNITS/ 10 ML VIAL ONE (09:09)
[2020-11-18] MEDS: Mirtazapine 15 MG TAB PO SCH (20:06)
[2020-11-19 00:28] LABS: SARS-CoV-2 PCR by NAA Not Detected (NotDetected)
[2020-11-19 06:26] LABS: Hemoglobin 7.7 g/dL (14.0-18.0); Mean Corpuscular HGB CONC 31.7 g/dL (32.0-36.0); Mean Corpuscular Hemoglobin 35.3 pg (27.0-31.0); Mean Platelet Volume 6.8 fL (7.4-10.4); Platelet Count 53 thou/uL (130-400); RBC Distribution Width 15.3 % (11.5-14.5); Red Blood Cell (RBC) Count 2.18 mill/uL (4.70-6.10); White Blood Cell (WBC) Count 3.5 thou/uL (4.8-10.8)
[2020-11-19 06:45] LABS: ALT (SGPT) 14 U/L (8-55); AST (SGOT) 40 U/L (5-34); Albumin 2.7 g/dL (3.5-5.0); Alkaline Phosphatase 80 U/L (40-110); Anion Gap 13 mmol/L (10-20); BUN (Urea Nitrogen) 35 mg/dL (8.9-20.6); Bilirubin, Total 6.3 mg/dL (0.2-1.2); Calc. Creatinine Clearance 42 mL/min (70-130); Calcium 8.1 mg/dL (7.8-10.44); Carbon Dioxide 24 mmol/L (22-29); Chloride 106 mmol/L (98-107); Globulin 4.7 g/dL (2.4-3.5); Glucose 96 mg/dL (70-105); Protein, Total 7.4 g/dL (6.0-8.3); Sodium 139 mmol/L (136-145)
[2020-11-19 07:32] LABS: Band 8 % (5-11); Eosinophils 4 % (0-10); Hypochromia SLIGHT = 6-15 cells (100X) (0-5/hpf); Lymphocytes 40 % (21-51); MDiff Complete? YES; Macrocytosis MODERATE=16-30 cells (100X) (0-5/hpf); Monocytes 10 % (0-10); Neutrophil 38 % (42-75); Platelet Morphology Comment Appears Decreased; Polychromasia MODERATE = 3-4 cells (100X) (0-2/hpf)
[2020-11-19] MEDS: Cholestyramine/Aspartame 4 gm Packet PO SCH ×2 (08:29→16:57)
[2020-11-19] MEDS: Aspirin 81 mg Enteric Coated Tablet PO SCH (08:29)
[2020-11-19] MEDS: Saccharomyces boulardii 250 MG CAP PO SCH (08:29)
[2020-11-19] MEDS: guaiFENesin ER 600 MG TAB PO SCH ×2 (08:29→20:15)
[2020-11-19] MEDS: Mirtazapine 15 MG TAB PO SCH (20:15)
[2020-11-19] MEDS: EPOETIN ALFA-EPBX (ESRD) 10,000 UNIT/ML VIAL IVP SCH (21:45)
[2020-11-20] MEDS: Cholestyramine/Aspartame 4 gm Packet PO SCH ×2 (04:38→17:34)
[2020-11-20 05:27] LABS: ALT (SGPT) 16 U/L (8-55); AST (SGOT) 47 U/L (5-34); Albumin 2.7 g/dL (3.5-5.0); Alkaline Phosphatase 82 U/L (40-110); Anion Gap 13 mmol/L (10-20); BUN (Urea Nitrogen) 41 mg/dL (8.9-20.6); Band 7 % (5-11); Basophilic Stippling SLIGHT = 1-2 cells (100X) (None Seen); Bilirubin, Total 6.2 mg/dL (0.2-1.2); Calc. Creatinine Clearance 37 mL/min (70-130); Calcium 8.2 mg/dL (7.8-10.44); Carbon Dioxide 23 mmol/L (22-29); Chloride 106 mmol/L (98-107); Eosinophils 2 % (0-10); Globulin 4.8 g/dL (2.4-3.5); Glucose 112 mg/dL (70-105); Hemoglobin 7.7 g/dL (14.0-18.0); Hypochromia SLIGHT = 6-15 cells (100X) (0-5/hpf); Lymphocytes 26 % (21-51); MDiff Complete? YES; Macrocytosis MODERATE=16-30 cells (100X) (0-5/hpf); Mean Corpuscular HGB CONC 31.9 g/dL (32.0-36.0); Mean Corpuscular Hemoglobin 35.9 pg (27.0-31.0); Mean Platelet Volume 6.7 fL (7.4-10.4); Metamyelocyte 1 % (0-0); Monocytes 6 % (0-10); Neutrophil 57 % (42-75); Platelet Count 46 thou/uL (130-400); Platelet Morphology Comment Appears Decreased; Polychromasia MODERATE = 3-4 cells (100X) (0-2/hpf); Potassium 4.1 mmol/L (3.5-5.1); Protein, Total 7.5 g/dL (6.0-8.3); Red Blood Cell (RBC) Count 2.15 mill/uL (4.70-6.10); Sodium 138 mmol/L (136-145); White Blood Cell (WBC) Count 4.3 thou/uL (4.8-10.8)
[2020-11-20] MEDS ORDERED: Escitalopram Oxalate 10 mg Tablet PO SCH (09:00)
[2020-11-20] MEDS: Saccharomyces boulardii 250 MG CAP PO SCH (10:48)
[2020-11-20] MEDS: Aspirin 81 mg Enteric Coated Tablet PO SCH (10:48)
[2020-11-20] MEDS: guaiFENesin ER 600 MG TAB PO SCH ×3 (10:48→21:29)
[2020-11-20] MEDS: Lorazepam 2 MG/ML VIAL SLOW IVP PRN ×2 (11:22→20:22)
[2020-11-20] MEDS ORDERED: Morphine 2 MG/ML VIAL SLOW IVP PRN (15:01)
[2020-11-20 21:06] VITALS: BP 90/53; TEMP 98.4
[2020-11-20] MEDS: Mirtazapine 15 MG TAB PO SCH ×2 (21:14→21:29)
== END 2020-11-20 22:05 | disposition hospice, inpatient (51) | DRG 441 ==
LOC: ERS 01:41 → ERHOLD 04:27 → T4-A 08:37
PROVIDERS: ADMIT Family Medicine; ATTEND Family Medicine
PROC: 0W9G3ZZ Drainage of Peritoneal Cavity, Percutaneous Approach (ICD-10-PCS; principal; 2020-11-02)
PROC: 0DBE8ZX Excision of Large Intestine, Via Natural or Artificial Opening Endoscopic, Diagnostic (ICD-10-PCS; 2020-11-06)
PROC: 0DBB8ZX Excision of Ileum, Via Natural or Artificial Opening Endoscopic, Diagnostic (ICD-10-PCS; 2020-11-06)
PROC: 02HV33Z Insertion of Infusion Device into Superior Vena Cava, Percutaneous Approach (ICD-10-PCS; 2020-11-06)
PROC: B548ZZA Ultrasonography of Superior Vena Cava, Guidance (ICD-10-PCS; 2020-11-06)
PROC: 06HY33Z Insertion of Infusion Device into Lower Vein, Percutaneous Approach (ICD-10-PCS; 2020-11-15)
PROC: 5A1D70Z Performance of Urinary Filtration, Intermittent, Less than 6 Hours Per Day (ICD-10-PCS; 2020-11-16)
DX: K76.7 Hepatorenal syndrome (principal); A41.9 Sepsis, unspecified organism; K65.2 Spontaneous bacterial peritonitis; D65 Disseminated intravascular coagulation [defibrination syndrome]; D59.3 Hemolytic-uremic syndrome; N18.6 End stage renal disease; E43 Unspecified severe protein-calorie malnutrition; N17.9 Acute kidney failure, unspecified; E87.1 Hypo-osmolality and hyponatremia; E87.2 Acidosis; Z68.43 Body mass index [BMI] 50.0-59.9, adult; A04.72 Enterocolitis due to Clostridium difficile, not specified as recurrent; K92.1 Melena; I12.0 Hypertensive chronic kidney disease with stage 5 chronic kidney disease or end stage renal disease; Z51.5 Encounter for palliative care; Z66 Do not resuscitate; K70.31 Alcoholic cirrhosis of liver with ascites; E87.6 Hypokalemia; E87.8 Other disorders of electrolyte and fluid balance, not elsewhere classified; F39 Unspecified mood [affective] disorder; E86.0 Dehydration; F10.11 Alcohol abuse, in remission; E88.09 Other disorders of plasma-protein metabolism, not elsewhere classified; K70.11 Alcoholic hepatitis with ascites; E66.01 Morbid (severe) obesity due to excess calories; R32 Unspecified urinary incontinence; J44.9 Chronic obstructive pulmonary disease, unspecified; D53.9 Nutritional anemia, unspecified; K46.9 Unspecified abdominal hernia without obstruction or gangrene; R59.0 Localized enlarged lymph nodes; Z20.822 Contact with and (suspected) exposure to COVID-19; E87.5 Hyperkalemia; F41.9 Anxiety disorder, unspecified; Z79.82 Long term (current) use of aspirin; Z87.891 Personal history of nicotine dependence; Z79.899 Other long term (current) drug therapy; Z98.890 Other specified postprocedural states; K70.10 Alcoholic hepatitis without ascites
CPT/HCPCS: 36415; 49083; 71045; 71250; 74177; 76705; 80048; 80053; 80074; 80076; 81001; 82042; 82103; 82104; 82105; 82140; 82274; 82570; 82728; 82977; 83516; 83520; 83540; 83550; 83605; 83615; 83630; 83690; 83735; 83880; 84100; 84145; 84156; 84157; 84484; 85025; 85049; 85060; 85240; 85300; 85362; 85379; 85384; 85610; 85652; 85730; 86038; 86140; 86160; 86225; 86256; 86780; 86880; 87040; 87045; 87046; 87070; 87205; 87324; 87328; 87329; 87389; 87427; 87449; 87493; 87517; 88305; 89051; 90935; 93970; 96365; 96367; 96372; 96375; C9113; G0257; J0500; J0692; J0696; J0744; J1642; J1644; J1650; J1940; J2060; J2270; J2354; J2405; J2550; J2704; J3490; J7050; P9047; Q5105; Q9967; U0003; U0005